=== PATIENT | female | born 1955 | race Caucasian/White ===

== ENCOUNTER 2016-03-31 17:48 | Emergency (ER) | payer MEDICARE, MEDICAID ==
[2016-03-31] MEDS ORDERED: OXYCODONE-ACETAMINOPHEN 5-325 MG TABLET PO ONE (18:50)
--- NOTE | 2016-03-31 18:53 | ER Document Report ---
ED Medical Screen (RME) - General Chief Complaint: Fall Injury Stated Complaint: FALL,RIGHT SIDE PAIN Mode of Arrival: Wheelchair Information source: Patient Notes: Patient states that she fell 3 days ago and broke a table. Patient states she has been feeling dizzy off and on at home. Patient is uncertain exactly what happened during the fall. Patient has bruising along right lateral side area. Patient denies any chest pain or shortness of breath, although complains of pain with deep inspiration. hx: Anxiety, restless leg syndrome, COPD, hypertension TRAVEL OUTSIDE OF THE [place] IN LAST 30 DAYS: No - Related Data Allergies/Adverse Reactions: citalopram hydrobromide [From Celexa] Allergy (Verified 03/12/16 13:31) dextromethorphan HBr [From NyQuil] Allergy (Verified 03/12/16 13:31) doxylamine [From NyQuil] Allergy (Verified 03/12/16 13:31) fluoxetine HCl [From Prozac] Allergy (Verified 03/12/16 13:31) pseudoephedrine HCl [From NyQuil] Allergy (Verified 03/12/16 13:31) trazodone [Trazodone] Allergy (Verified 03/12/16 13:31) antidepressants Adverse Reaction (Uncoded 03/12/16 13:31) Hallucinations Past Medical History - Social History Family history: CVA, Malignancy - Past Medical History Cardiac Medical History: Reports: Hx Hypertension Denies: Hx Coronary Artery Disease, Hx Heart Attack Pulmonary Medical History: Reports: Hx Asthma, Hx Bronchitis, Hx COPD, Hx Pneumonia Denies: Hx Tuberculosis Neurological Medical History: Reports: Hx Migraine. Denies: Hx Cerebrovascular Accident Malignancy Medical History: Reports: Hx Cervical Cancer GI Medical History: Reports: Hx Cirrhosis, Hx Gastritis Musculoskeltal Medical History: Denies Hx Arthritis, Reports Hx Muscle Weakness , Reports Hx Musculoskeletal Trauma Psychiatric Medical History: Reports: Hx Anxiety, Hx Bipolar Disorder, Hx Depression Traumatic Medical History: Reports: Hx Fractures Past Surgical History: Reports: Hx Section - x3, Hx Gynecologic Surgery - cervical dysplasia, Hx Tonsillectomy. Denies: Hx Pacemaker - Immunizations Immunizations up to date: Yes Hx Diphtheria, Pertussis, Tetanus Vaccination: Yes Physical Exam - Abdominal Tenderness: Tender - Right lateral side with overlying ecchymosis
[2016-03-31 20:10] LABS: ABSOLUTE BASOPHILS # (AUTO) 0.1 10^3/uL (0.0-0.2); ABSOLUTE LYMPHOCYTES (AUTO) 1.8 10^3/uL (0.5-4.7); ABSOLUTE MONOCYTES (AUTO) 1.1 10^3/uL (0.1-1.4); ABSOLUTE NEUT (AUTO) 4.2 10^3/uL (1.7-8.2); EOSINOPHILS % (AUTO) 0.5 % (0-6); HEMATOCRIT 46.7 % (36.0-47.0); HEMOGLOBIN 16.3 g/dL (12.0-15.5); HGB HCT DIFFERENCE 2.2; LYMPHOCYTES % (AUTO) 25.5 % (13-45); MEAN CORPUSCULAR HEMOGLOBIN 33.6 pg (27.0-33.4); MEAN CORPUSCULAR HGB CONC 34.9 g/dL (32.0-36.0); MEAN CORPUSCULAR VOLUME 96 fl (80-97); MONOCYTES % (AUTO) 15.3 % (3-13); RED BLOOD COUNT 4.85 10^6/uL (3.72-5.28); RED CELL DISTRIBUTION WIDTH 13.4 % (11.5-14.0); SEGMENTED NEUTROPHILS % (AUTO) 57.7 % (42-78); WHITE BLOOD COUNT 7.2 10^3/uL (4.0-10.5)
[2016-03-31 20:13] LABS: PROTHROMBIN TIME 12.6 SEC (11.4-15.4)
[2016-03-31 20:14] LABS: PARTIAL THROMBOPLASTIN TIME 42.3 SEC (23.5-35.8)
[2016-03-31 20:23] LABS: ALANINE AMINOTRANSFERASE 35 U/L (9-52); ALBUMIN 4.7 g/dL (3.5-5.0); ALKALINE PHOSPHATASE 108 U/L (38-126); ANION GAP 13 (5-19); ASPARTATE AMINO TRANSFERASE 24 U/L (14-36); BILIRUBIN,TOTAL 0.8 mg/dL (0.2-1.3); BLOOD UREA NITROGEN 7 mg/dL (7-20); CALCIUM 9.8 mg/dL (8.4-10.2); CARBON DIOXIDE 25 mmol/L (22-30); CHLORIDE 98 mmol/L (98-107); CREATINE KINASE 65 U/L (30-135); CREATININE RESULT 0.62 mg/dL (0.52-1.25); GLUCOSE 100 mg/dL (75-110); MAGNESIUM 1.7 mg/dL (1.6-2.3); SODIUM 135.9 mmol/L (137-145); TOTAL PROTEIN 6.9 g/dL (6.3-8.2)
[2016-03-31 20:36] LABS: TROPONIN I < 0.012 ng/mL
--- NOTE | 2016-03-31 21:14 | EKG REPORT ---
SEVERITY:- OTHERWISE NORMAL ECG - SINUS TACHYCARDIA : Confirmed by: El Werner MD 31-Mar-2016 21:14:27
[2016-03-31 21:22] LABS: APPEARANCE,URINE SLIGHTLY-CLOUDY; BILIRUBIN,URINE NEGATIVE (NEGATIVE); GLUCOSE, URINE NEGATIVE (NEGATIVE); KETONES,URINE TRACE mg/dL (NEGATIVE); LEUKOCYTE ESTERASE,URINE LARGE (NEGATIVE); NITRITE,URINE POSITIVE (NEGATIVE); PROTEIN,URINE NEGATIVE (NEGATIVE); URINE SPECIFIC GRAVITY 1.012; UROBILINOGEN,URINE NEGATIVE mg/dL (<2.0)
[2016-03-31] MEDS ORDERED: CEFTRIAXONE INJ 1000 MG VIAL IV ONE (22:50)
[2016-03-31] MEDS ORDERED: FENTANYL CITRATE INJ/PF 100 MCG/2 ML AMPUL IV ONE (22:51)
--- NOTE | 2016-04-01 | ER Document Report ---
ED General - General Chief Complaint: Fall Injury Stated Complaint: FALL,RIGHT SIDE PAIN Mode of Arrival: Wheelchair Notes: Patient is a 61 year old female presents with complaint of right-sided flank pain. Patient fell several days ago. She has bruising across her right flank. She says she has pain over her ribs. She says it hurts to cough. She's also recently treated for UTI. She is unsure what anabolic she was given. Denies any fevers. No vomiting. She has chronic back pain. She denies any complaints of leg pain and weakness or numbness. No loss of bowel control. No urinary retention. No other complaints at this time. TRAVEL OUTSIDE OF THE [place] IN LAST 30 DAYS: No - Related Data Allergies/Adverse Reactions: citalopram hydrobromide [From Celexa] Allergy (Verified 03/12/16 13:31) dextromethorphan HBr [From NyQuil] Allergy (Verified 03/12/16 13:31) doxylamine [From NyQuil] Allergy (Verified 03/12/16 13:31) fluoxetine HCl [From Prozac] Allergy (Verified 03/12/16 13:31) pseudoephedrine HCl [From NyQuil] Allergy (Verified 03/12/16 13:31) trazodone [Trazodone] Allergy (Verified 03/12/16 13:31) antidepressants Adverse Reaction (Uncoded 03/12/16 13:31) Hallucinations Past Medical History - General Information source: Patient - Social History Smoking Status: Unknown if Ever Smoked Frequency of alcohol use: None Drug Abuse: None Family History: Reviewed & Not Pertinent - Past Medical History Cardiac Medical History: Reports: Hx Hypertension Denies: Hx Coronary Artery Disease, Hx Heart Attack Pulmonary Medical History: Reports: Hx Asthma, Hx Bronchitis, Hx COPD, Hx Pneumonia Denies: Hx Tuberculosis Neurological Medical History: Reports: Hx Migraine. Denies: Hx Cerebrovascular Accident Malignancy Medical History: Reports: Hx Cervical Cancer GI Medical History: Reports: Hx Cirrhosis, Hx Gastritis Musculoskeltal Medical History: Denies Hx Arthritis, Reports Hx Muscle Weakness , Reports Hx Musculoskeletal Trauma Psychiatric Medical History: Reports: Hx Anxiety, Hx Bipolar Disorder, Hx Depression Traumatic Medical History: Reports: Hx Fractures Past Surgical History: Reports: Hx Section - x3, Hx Gynecologic Surgery - cervical dysplasia, Hx Tonsillectomy. Denies: Hx Pacemaker - Immunizations Immunizations up to date: Yes Hx Diphtheria, Pertussis, Tetanus Vaccination: Yes Review of Systems - Review of Systems Notes: My Normal Review Basic REVIEW OF SYSTEMS: CONSTITUTIONAL : Denies fever, chills, or sweats. Denies recent illness. EENT: Denies eye, ear, throat, or mouth pain or symptoms. Denies nasal or sinus congestion. CARDIOVASCULAR: Pain over right lower ribs. RESPIRATORY: Denies cough, cold, or chest congestion. Denies shortness of breath, difficulty breathing, or wheezing. GASTROINTESTINAL: Denies abdominal pain. Denies nausea, vomiting, or diarrhea. Denies constipation. Last BM: GENITOURINARY: Denies difficulty urinating, painful urination, burning, frequency, or blood in urine. MUSCULOSKELETAL: Right lower rib pain. SKIN: Denies rash or skin lesions. HEMATOLOGIC : Denies easy bruising or bleeding. LYMPHATIC: Denies swollen, enlarged glands. NEUROLOGICAL: Denies altered mental status or loss of consciousness. Denies headache. Denies weakness or paralysis or loss of use of either side. Denies problems with gait or speech. Denies sensory or motor loss. ALL OTHER SYSTEMS REVIEWED AND NEGATIVE. Physical Exam - Vital signs Vitals: Resp BP Pulse Ox 20 133/83 H 94 04/01/16 01:01 04/01/16 01:01 04/01/16 01:01 - Notes Notes: General Appearance: Well nourished, alert, cooperative, no acute distress, moderate obvious discomfort. Vitals: reviewed, See vital signs table. Head: no swelling or tenderness to the head Eyes: PERRL, EOMI, Conjuctiva clear Mouth: No decreasd moisture Neck: Supple, no neck tenderness, No thyromegaly Lungs: No wheezing, No rales, No rhonci, No accessory muscle use, good air exchange bilaterally. Heart: Normal rate, Regular rythm, No murmur, no rub Chest wall: Patient has very easily reproducible pain to palpation over right lower ribs. No obvious deformity. Patient does have a large bruise goning across the right flank. Abdomen: Normal BS, soft, No rigidity, No abdominal tenderness, No guarding, no rebound, no abdominal masses, no organomegaly Extremities: strength 5/5 in all extremities, good pulses in all extremities, no swelling or tenderness in the extremities, no edema. Skin: warm, dry, appropriate color, no rash Neuro: speech clear, oriented x 3, normal affect, responds appropriately to questions. Course - Vital Signs Vital signs: Temp Pulse Resp BP Pulse Ox 20 133/83 H 94 04/01/16 01:01 04/01/16 01:01 04/01/16 01:01 - Laboratory Result Diagrams: 03/31/16 19:43 03/31/16 19:43 Laboratory results interpreted by me: 03/31/16 03/31/16 03/31/16 19:43 19:43 19:43 Hgb 16.3 H MCH 33.6 H Monocytes % 15.3 H APTT 42.3 H Sodium 135.9 L Urine Ketones Urine Blood Urine Nitrite Ur Leukocyte Esterase 03/31/16 19:43 Hgb MCH Monocytes % APTT Sodium Urine Ketones TRACE H Urine Blood MODERATE H Urine Nitrite POSITIVE H Ur Leukocyte Esterase LARGE H - Transfer of Care Notes: 04/01/16 06:28 Patient is a bit tachycardic on presentation. I think this is related to her pain. I did obtain a CT scan of her abdomen and pelvis because she does have large flank bruise with some tachycardia. Want to make sure there is no intra- abdominal injury. CT scan is negative. Symptoms most likely are related to her rib contusion. She is very tender to palpation over her right lower rib. I will discharge him with pain medication. I will give her incentive spirometer to use. She does have UTI. I did give her a dose of Rocephin send her urine for culture due to her history of recurrent UTIs. Encouraged to return to the ER if she has fevers, vomiting, difficulty breathing, or feels unwell. Patient agrees with plan will be discharged home. Dictation of this chart was performed using voice recognition software; therefore, there may be some unintended grammatical errors. Discharge - Discharge Clinical Impression: Contusion of rib on right side Qualifiers: Encounter type: initial encounter Qualified Code(s): S20.211A - Contusion of right front wall of thorax, initial encounter UTI (urinary tract infection) Qualifiers: Urinary tract infection type: site unspecified Hematuria presence: with hematuria Qualified Code(s): N39.0 - Urinary tract infection, site not specified Condition: Good Disposition: HOME, SELF-CARE Additional Instructions: URINARY TRACT INFECTION: Your evaluation indicates that you have a urinary tract infection. This is due to germs growing in the bladder. This is a common problem. This infection usually responds quickly to antibiotics. Your antibiotic should be taken exactly as prescribed. Drink plenty of fluids -- three to four quarts a day. Occasionally, a bladder anesthetic will be prescribed to help stop the feeling of urgency until the antibiotic has a chance to clear the infection. This may cause your urine to be dark orange. Certain urine infections require a culture. If the doctor obtained a culture, the results will be back in two days. You should call to see if a change in treatment is needed. A repeat urinalysis after you finish treatment is often recommended. The physician will let you know if further testing is required. Call the doctor if you develop fever, chills, flank pain, inability to urinate, or blood in the urine. ANTIBIOTIC THERAPY: You have been given an antibiotic prescription. It's important that you take all the medication, unless instructed otherwise by your physician. Failure to complete the entire course can result in relapse of your condition. Common side effects of antibiotics include nausea, intestinal cramping, or diarrhea. Women may develop vaginal yeast infections, and babies can get yeast (thrush) in the mouth following the use of antibiotics. Contact your physician if you develop significant side effects from this medication. Allergy to this antibiotic can result in hives, wheezing, faintness, or itching. If symptoms of allergy occur, stop the medication and call the doctor. CEPHALEXIN: The antibiotic you've been prescribed is a member of the cephalosporin class. This type of antibiotic covers a wide variety of infections, including those of the skin, lungs, and urinary tract. It's useful for staph infections. This antibiotic is slightly similar to the penicillin family. In rare cases , a person who is allergic to penicillin will also be allergic to this medication. If you have had a severe allergic reaction to penicillin, and have not taken this antibiotic since that time, notify your doctor. Antibiotics which cover many germs ("broad spectrum" antibiotics) are more likely to cause diarrhea or "yeast" infections. Women prone to vaginal yeast problems may suffer an attack after taking this antibiotic. In infants, oral thrush (white spots "stuck" on the cheek) or yeast diaper rash may result. See your doctor if these problems occur. Call at once if you develop itching, hives , shortness of breath, or lightheadedness. FOLLOW-UP CARE: If you have been referred to a physician for follow-up care, call the physician s office for an appointment as you were instructed or within the next two days. If you experience worsening or a significant change in your symptoms, notify the physician immediately or return to the Emergency Department at any time for re-evaluation. Rib Contusion You have been diagnosed as having bruised ribs. It will usually take a few weeks for these injured ribs to heal. You should cough or take a deep breath at least every hour or two to prevent lung complications. You should not engage in any strenuous physical activity until released by your physician. The usual rule is "if it hurts, don' t do it." Return if you develop any of the following: (1) Fever or chills. (2) Persistent cough, coughing up blood, or shortness of breath. (3) Increasing pain. (4) Weakness, lightheadedness, or fainting. Please use the incentive spirometer to take a deep breath at least once every 30 minutes. Please take the pain medicine as prescribed. Please call your primary care physician for close follow-up appointment. Please return to the ER if you have fevers, vomiting, difficulty breathing, or feel unwell. Prescriptions: Cephalexin Monohydrate [Keflex 500 mg Capsule] 500 mg PO QID #20 capsule Oxycodone HCl/Acetaminophen [Percocet 5-325 mg Tablet] 1 tab PO Q4H PRN #25 tablet PRN Reason: Forms: Return to Work Referrals: THIEN DUCKWORTH MD [Primary Care Provider] - Follow up as needed
[2016-04-01 01:46] VITALS: BP 133/83
== END 2016-04-01 01:53 | disposition home or self-care (01) ==
LOC: ER 17:48
DX: S20.211A Contusion of right front wall of thorax, initial encounter (principal); R07.81 Pleurodynia; W19.XXXA Unspecified fall, initial encounter; N39.0 Urinary tract infection, site not specified; R31.9 Hematuria, unspecified; R00.0 Tachycardia, unspecified; M54.9 Dorsalgia, unspecified; G89.29 Other chronic pain; I10 Essential (primary) hypertension; J44.9 Chronic obstructive pulmonary disease, unspecified; J45.909 Unspecified asthma, uncomplicated; Z85.41 Personal history of malignant neoplasm of cervix uteri; Z88.8 Allergy status to other drugs, medicaments and biological substances
CPT/HCPCS: 93005; 99284; 96375; 96365; 36415; 82553; 82550; 83690; 83735; 85025; 85610; 85730; 80053; 81001; 84484; 71101; 74177; 93010; J3010; A9270; J0696

== ENCOUNTER → 2016-04-09 | Outpatient (CLI) | payer MEDICARE, MEDICAID | LOC: RAD 08:35 | PROVIDERS: ATTEND Family Medicine | DX: S20.211A Contusion of right front wall of thorax, initial encounter (principal); X58.XXXA Exposure to other specified factors, initial encounter | CPT/HCPCS: 71020 ==

== ENCOUNTER → 2016-04-24 | Outpatient (CLI) | payer MEDICARE, MEDICAID | LOC: RAD 13:27 | PROVIDERS: ATTEND Family Medicine | DX: S20.211A Contusion of right front wall of thorax, initial encounter (principal); X58.XXXA Exposure to other specified factors, initial encounter ==

== ENCOUNTER 2016-04-26 12:37 | Emergency (ER) | payer MEDICARE, MEDICAID ==
[2016-04-26] MEDS ORDERED: DIPH/PERTUSS(ACELL)/TETANUS VAC/PF 0.5 ML SYR (>=10YO) IM ONE (14:23)
[2016-04-26] MEDS ORDERED: LIDOCAINE 1% INJ-PF (10 MG/ML) 30 ML SDV INJ ONE (14:23)
--- NOTE | 2016-04-26 14:26 | ER Document Report ---
ED Fall - General Chief Complaint: Fall Injury Stated Complaint: CAMPOS LACERATION Mode of Arrival: Medic Information source: Patient Notes: Patient states that she was standing on a table yesterday attempting to change the curtains in her house. Patient states that she lost her balance and fell from the table. Patient with a laceration to her left leg. Patient also reports hitting her head but is not certain if she may have had a loss of consciousness. Patient additionally reports that she was recently treated for UTI with Keflex but does not feel that her UTI symptoms have completely resolved. TRAVEL OUTSIDE OF THE [place] IN LAST 30 DAYS: No - HPI Occurred: Yesterday Where: Home Context: Lost balance Associated symptoms: None Location of injury/pain: Head, Upper extremity, Lower extremity Quality of pain: Achy Pain Level: 3 - Related data Allergies/Adverse Reactions: citalopram hydrobromide [From Celexa] Allergy (Verified 03/12/16 13:31) dextromethorphan HBr [From NyQuil] Allergy (Verified 03/12/16 13:31) doxylamine [From NyQuil] Allergy (Verified 03/12/16 13:31) fluoxetine HCl [From Prozac] Allergy (Verified 03/12/16 13:31) pseudoephedrine HCl [From NyQuil] Allergy (Verified 03/12/16 13:31) trazodone [Trazodone] Allergy (Verified 03/12/16 13:31) antidepressants Adverse Reaction (Uncoded 03/12/16 13:31) Hallucinations Past Medical History - General Information source: Patient - Social History Smoking Status: Current Every Day Smoker Frequency of alcohol use: Occasional Drug Abuse: None Occupation: none Lives with: Friend Family History: Reviewed & Not Pertinent - Past Medical History Cardiac Medical History: Reports: Hx Hypertension Denies: Hx Coronary Artery Disease, Hx Heart Attack Pulmonary Medical History: Reports: Hx Asthma, Hx Bronchitis, Hx COPD, Hx Pneumonia Denies: Hx Tuberculosis Neurological Medical History: Reports: Hx Migraine. Denies: Hx Cerebrovascular Accident Malignancy Medical History: Reports: Hx Cervical Cancer GI Medical History: Reports: Hx Cirrhosis, Hx Gastritis Musculoskeltal Medical History: Denies Hx Arthritis, Reports Hx Muscle Weakness , Reports Hx Musculoskeletal Trauma Psychiatric Medical History: Reports: Hx Anxiety, Hx Bipolar Disorder, Hx Depression Traumatic Medical History: Reports: Hx Fractures Past Surgical History: Reports: Hx Section - x3, Hx Gynecologic Surgery - cervical dysplasia, Hx Tonsillectomy. Denies: Hx Pacemaker - Immunizations Immunizations up to date: Yes Hx Diphtheria, Pertussis, Tetanus Vaccination: Yes Review of Systems - Review of Systems Constitutional: Recent illness - Recent UTI. denies: Fever EENT: No symptoms reported. denies: Blurred vision Cardiovascular: No symptoms reported. denies: Chest pain Respiratory: No symptoms reported. denies: Cough, Short of breath Gastrointestinal: No symptoms reported. denies: Abdominal pain, Nausea, Vomiting Genitourinary: No symptoms reported Female Genitourinary: No symptoms reported Musculoskeletal: Other - Left lower leg pain. denies: Back pain Skin: Other - Laceration to left lower extremity Hematologic/Lymphatic: No symptoms reported Neurological/Psychological: No symptoms reported. denies: Confusion, Headaches Physical Exam - Vital signs Vitals: Temp Pulse Resp BP Pulse Ox 97.6 F 104 H 20 134/70 H 94 04/26/16 12:54 04/26/16 12:54 04/26/16 12:54 04/26/16 12:54 04/26/16 12:54 - General General appearance: Appears well, Alert In distress: None - HEENT Head: Ecchymosis - Large swollen ecchymotic area to right side of forehead. No : Abrasions, [place]'s eyes Eyes: Normal Conjunctiva: Normal Extraocular movements intact: Yes Eyelashes: Normal Pupils: PERRL Ears: Normal External canal: Normal Tympanic membrane: Normal. No: Hemotympanum Nasal: Normal Mouth/Lips: Normal Pharynx: Normal Neck: Normal, Supple. No: Lymphadenopathy Notes: No midline tenderness, step-off, deformity - Respiratory Respiratory status: No respiratory distress Chest status: Nontender Breath sounds: Normal Chest palpation: Normal - Cardiovascular Rhythm: Regular Heart sounds: S1 appreciated, S2 appreciated - Abdominal Inspection: Caput medussa Distension: No distension Bowel sounds: Normal Tenderness: Nontender Organomegaly: No organomegaly - Back Back: Normal, Nontender. No: CVA tenderness, Vertebra tenderness - Extremities General upper extremity: Tender, Normal strength - Superficial abrasions to right upper arm General lower extremity: Tender - Tenderness to anterior aspect of left lower leg involving laceration, Normal strength Shoulder: Normal, Nontender Arm: Tender - Right upper arm, Abrasion - Superficial, right upper arm Elbow: Normal, Nontender Forearm: Normal, Nontender Wrist: Normal, Nontender Hand: Normal, Nontender Hip: Normal, Nontender Thigh: Normal, Nontender Knee: Normal, Nontender Calf: Normal, Nontender Ankle: Normal, Nontender Foot: Normal, Nontender - Neurological Neuro grossly intact: Yes [place] Coma Scale Eye Opening: Spontaneous Jose Coma Scale Verbal: Oriented [place] Coma Scale Motor: Obeys Commands Jose Coma Scale Total: 15 - Skin Skin Temperature: Warm Skin Moisture: Dry Skin Color: Normal Skin irregularity: Laceration - Anterior aspect of lower third of left lower extremity Course - Re-evaluation Re-evalutation: 04/26/16 14:[address] Terry regarding patient presentation, exam findings. Advises obtaining coagulation panel, CT head as well as CT cervical spine, in addition to planned evaluation. Recommends suturing laceration with edges loosely approximated. 04/26/16 18:[address] Terry regarding antibiotic choice given patient's laceration as well as a UTI that was previously treated with Keflex. Recommends giving Bactrim - Vital Signs Vital signs: Temp Pulse Resp BP Pulse Ox 97.6 F 66 16 122/67 98 04/26/16 12:54 04/26/16 18:16 04/26/16 18:16 04/26/16 18:16 04/26/16 18:16 - Laboratory Result Diagrams: 04/26/16 15:25 04/26/16 15:25 Laboratory results interpreted by me: 04/26/16 04/26/16 04/26/16 15:25 15:25 15:25 Monocytes % 17.6 H BUN 6 L Glucose 137 H Ammonia < 8.7 L Urine Blood Ur Leukocyte Esterase 04/26/16 15:25 Monocytes % BUN Glucose Ammonia Urine Blood SMALL H Ur Leukocyte Esterase LARGE H Labs- Entire Visit 04/26/16 04/26/16 04/26/16 15:25 15:25 15:25 WBC 5.0 RBC 4.39 Hgb 14.5 Hct 42.8 MCV 97 MCH 33.0 MCHC 33.9 RDW 13.6 Plt Count 154 Seg Neutrophils % 47.5 Lymphocytes % 33.0 Monocytes % 17.6 H Eosinophils % 1.1 Basophils % 0.8 Absolute Neutrophils 2.4 Absolute Lymphocytes 1.7 Absolute Monocytes 0.9 Absolute Eosinophils 0.1 Absolute Basophils 0.0 PT 12.0 INR 0.86 APTT 34.2 Sodium 142.2 Potassium 4.6 Chloride 103 Carbon Dioxide 26 Anion Gap 13 BUN 6 L Creatinine 0.71 Est GFR ( Amer) > 60 Est GFR (Non-Af Amer) > 60 Glucose 137 H Calcium 9.7 Total Bilirubin 0.5 Direct Bilirubin 0.0 AST 23 ALT 22 Alkaline Phosphatase 79 Ammonia Total Protein 7.0 Albumin 3.9 Urine Color Urine Appearance Urine pH Ur Specific [place] Urine Protein Urine Glucose (UA) Urine Ketones Urine Blood Urine Nitrite Urine Bilirubin Urine Urobilinogen Ur Leukocyte Esterase Urine WBC (Auto) Urine RBC (Auto) Urine Bacteria (Auto) Squamous Epi Cells Auto Urine Mucus (Auto) Urine Ascorbic Acid 04/26/16 04/26/16 15:25 15:25 WBC RBC Hgb Hct MCV MCH MCHC RDW Plt Count Seg Neutrophils % Lymphocytes % Monocytes % Eosinophils % Basophils % Absolute Neutrophils Absolute Lymphocytes Absolute Monocytes Absolute Eosinophils Absolute Basophils PT INR APTT Sodium Potassium Chloride Carbon Dioxide Anion Gap BUN Creatinine Est GFR ( Amer) Est GFR (Non-Af Amer) Glucose Calcium Total Bilirubin Direct Bilirubin AST ALT Alkaline Phosphatase Ammonia < 8.7 L Total Protein Albumin Urine Color YELLOW Urine Appearance SLIGHTLY-CLOUDY Urine pH 5.0 Ur Specific [place] 1.005 Urine Protein NEGATIVE Urine Glucose (UA) NEGATIVE Urine Ketones NEGATIVE Urine Blood SMALL H Urine Nitrite NEGATIVE Urine Bilirubin NEGATIVE Urine Urobilinogen NEGATIVE Ur Leukocyte Esterase LARGE H Urine WBC (Auto) 59 Urine RBC (Auto) 10 Urine Bacteria (Auto) TRACE Squamous Epi Cells Auto <1 Urine Mucus (Auto) RARE Urine Ascorbic Acid NEGATIVE 04/26/16 18:43 - Diagnostic Test Radiology reviewed: Reports reviewed Procedures - Laceration/Wound Repair Left Leg Wound length (cm): 5 Wound's Depth, Shape: Irregular Laceration pre-procedure: Other - irrisept Anesthetic type: 1% Lidocaine Wound explored: No foreign body removed Irrigated w/ Saline (mLs): 1,000 Wound Debrided: Moderate Wound Repaired With: Sutures Suture Size/Type: 4:0, Prolene Number of Sutures: 7 Layer Closure?: No Post-procedure wound care: Sterile dressing applied Post-procedure NV exam normal: Yes Complications: No Discharge - Discharge Clinical Impression: Fall Qualifiers: Encounter type: initial encounter Qualified Code(s): W19.XXXA - Unspecified fall, initial encounter UTI (urinary tract infection) Qualifiers: Urinary tract infection type: site unspecified Hematuria presence: with hematuria Qualified Code(s): N39.0 - Urinary tract infection, site not specified Leg laceration Qualifiers: Encounter type: initial encounter Laterality: left Qualified Code(s): S81.812A - Laceration without foreign body, left lower leg, initial encounter Arm abrasion Qualifiers: Encounter type: initial encounter Laterality: right Qualified Code(s): S40.811A - Abrasion of right upper arm, initial encounter Head injury Qualifiers: Encounter type: initial encounter Qualified Code(s): S09.90XA - Unspecified injury of head, initial encounter Condition: Stable Disposition: HOME, SELF-CARE Instructions: Urinary Tract Infection ([facility]), Trimethoprim-Sulfa ([facility]) Additional Instructions: Return immediately for any new or worsening symptoms Followup with your primary care provider, call tomorrow to make a followup appointment Suture removal in 12 days HEAD INJURY PRECAUTIONS: At this point, there is no evidence that your head injury is serious. Observation is necessary, however. Take only clear liquids for the first few hours, unless told otherwise by the doctor. If no pain medication was prescribed, you may take acetaminophen according to the directions on the bottle. Do not take any medication that may alter your level of alertness (unless you've discussed it with the doctor first) . Limit activity for the first 24 hours. Bed rest is best. During the first 24 hours, check to see approximately every two to three hours that the patient is easily arousable, responds normally, and can perform common tasks such as walking without difficulty. Contact your doctor or go to the hospital if any of the following things occur: Persistent vomiting, difficulty in arousing the patient, worsening or continued headache, or failure to improve as expected. Head injuries can cause symptoms that persist for a few days or even a few weeks. NECK INJURY (CERVICAL STRAIN): You have a neck strain. This is an injury to the muscles and ligaments in the neck. There is no evidence of a fracture of the neck bones. Also, no injury to the spinal cord or nerve roots was detected. Usually, stiffness and pain INCREASE for the first 24-48 hours after the injury. The pain will gradually resolve and the neck will become more mobile. Most patients are back at work or school within a few days. Typically, complete healing takes about two or three weeks. The usual initial treatment is rest and cold packs. A neck collar may be placed to keep the muscles of the neck at rest. Antiinflammatory and muscle relaxing medication are often used to reduce the spasm and irritation. You should call the doctor, or go to the hospital, if you develop numbness or weakness in any extremity, problems with your bladder or bowel, or pain radiating down the arms. CONTUSION: Your injury has resulted in a contusion -- a crushing of the deep tissues. No injury to important structures was detected during the physician's exam. Contusions vary in the amount of pain they cause, and in the length of time required for healing. Typically, the area will become bruised, and will remain painful to touch for two or three weeks. However, most patients are back to working and playing within a few days. After the initial period of rest and cold-packs, your symptoms (together with the doctor's recommendations) will determine how rapidly you can get back to full activity. Usually this means "do what feels okay, but don't do things that hurt." If re-examination was recommended, it's important to follow up as instructed. Call the doctor or return any time if pain increases, if swelling becomes severe, if you develop numbness or weakness in an injured extremity, or if any other alarming symptoms occur. ABRASIONS: An abrasion is a scraping injury of the skin. Some scarring may result. The seriousness of an abrasion is not always obvious at first. Hidden tissue damage may be present and infection may occur despite proper care. Complete healing may take from ten days to as long as a month. The healing time depends on the depth of the abrasion, and on the amount of crushing of underlying tissues from the injury. Keep the wound and dressing clean. Do not shower or bathe the area until okayed by the doctor. If the dressing gets wet, remove it and blot the wound dry, then reapply a clean dressing. Dressings should be changed every day. Sunscreen should be used for six months after the skin is healed. If any signs of infection occur (swelling, redness, increasing tenderness, red streaks, profuse purulent drainage from the abrasion, tender lumps in the armpit or groin above the abrasion, or fever), see the doctor immediately. USE OF TYLENOL (ACETAMINOPHEN): Acetaminophen may be taken for pain relief or fever control. It's much safer than aspirin, offering a wider range of "safe" dosages. It is safe during . Some brand names are Tylenol, Panadol, Datril, Anacin 3, Tempra, and Liquiprin. Acetaminophen can be repeated every four hours. The following are maximum recommended dosages: WEIGHT Dose Drops Elixir Chewable( 80mg) (LBS.) drprs=droppers tsp=teaspoon >89 pounds or adults 650 mg to 900 mg Acetaminophen can be repeated every four hours. Maximum dose not to exceed 4000 mg a day. These maximum recommended dosages are slightly higher than the dosages written on the product container, but these dosages are very safe and below the toxic dosage for acetaminophen. TETANUS IMMUNIZATION GIVEN: You have been given an immunization against tetanus. Please record this in your records. In general, a booster is needed only once every 10 years. The tetanus shot protects against tetanus or "lockjaw," which is a complication of certain wound infections (the tetanus shot cannot protect against the actual infection). The immunization site may become warm and red due to local reaction. If this occurs, apply warm compresses and take aspirin or ibuprofen to reduce inflammation and discomfort. Return for evaluation if the reaction becomes severe. ICE PACKS: Apply ice packs frequently against the painful area. Many different schedules are recommended, such as "20 minutes on, 20 minutes off" or "one hour ice, two hours rest." If you need to work, you may need to go longer between ice treatments. You should plan to have the area ice packed AT LEAST one fourth of the time. The ice should be applied over the wrap, tape, or splint, or over a layer of cloth -- not directly against the skin. Some ice bags have a built-in cloth and can be put directly on the skin. WARM PACKS: After approximately two days, apply gentle heat (such as a heating pad or hot water bottle) for about 20 to 30 minutes about every two hours -- at least four times daily. Warmth and elevation will help you make a more rapid recovery , and will ease the pain considerably. Do not use HOT heat, and never apply heat for longer than 30 minutes. The continuous heat can invisibly damage skin and muscles -- even when no burn is seen on the surface. Damaged muscles can make you MORE sore. ORAL NARCOTIC MEDICATION: You have been given a prescription for pain control. This medication is a narcotic. It's best taken with food, as nausea can result if taken on an empty stomach. Don't operate machinery or drive within six hours of taking this medication. Do not combine this medicine with alcohol, or with any medication which can cause sedation (such as cold tablets or sleeping pills) unless you get permission from the physician. Narcotics tend to cause constipation. If possible, drink plenty of fluids and eat a diet high in fiber and fruits. FOLLOW-UP CARE: If you have been referred to a physician for follow-up care, call the physician s office for an appointment as you were instructed or within the next two days. If you experience worsening or a significant change in your symptoms, notify the physician immediately or return to the Emergency Department at any time for re-evaluation. Prescriptions: Sulfamethoxazole/Trimethoprim [Bactrim Ds Tablet] 1 each PO BID #20 tablet Referrals: THIEN DUCKWORTH MD [Primary Care Provider] - 04/29/16
[2016-04-26 15:49] LABS: ABSOLUTE EOSINOPHILS # (AUTO) 0.1 10^3/uL (0.0-0.6); ABSOLUTE LYMPHOCYTES (AUTO) 1.7 10^3/uL (0.5-4.7); ABSOLUTE MONOCYTES (AUTO) 0.9 10^3/uL (0.1-1.4); ABSOLUTE NEUT (AUTO) 2.4 10^3/uL (1.7-8.2); BASOPHILS % (AUTO) 0.8 % (0-2); EOSINOPHILS % (AUTO) 1.1 % (0-6); HEMATOCRIT 42.8 % (36.0-47.0); HEMOGLOBIN 14.5 g/dL (12.0-15.5); HGB HCT DIFFERENCE 0.7; MEAN CORPUSCULAR HGB CONC 33.9 g/dL (32.0-36.0); MEAN CORPUSCULAR VOLUME 97 fl (80-97); MONOCYTES % (AUTO) 17.6 % (3-13); RED BLOOD COUNT 4.39 10^6/uL (3.72-5.28); RED CELL DISTRIBUTION WIDTH 13.6 % (11.5-14.0); SEGMENTED NEUTROPHILS % (AUTO) 47.5 % (42-78)
[2016-04-26 15:51] LABS: APPEARANCE,URINE SLIGHTLY-CLOUDY; BILIRUBIN,URINE NEGATIVE (NEGATIVE); GLUCOSE, URINE NEGATIVE (NEGATIVE); KETONES,URINE NEGATIVE (NEGATIVE); LEUKOCYTE ESTERASE,URINE LARGE (NEGATIVE); NITRITE,URINE NEGATIVE (NEGATIVE); PROTEIN,URINE NEGATIVE (NEGATIVE); URINE SPECIFIC GRAVITY 1.005; UROBILINOGEN,URINE NEGATIVE mg/dL (<2.0)
[2016-04-26 15:58] LABS: PARTIAL THROMBOPLASTIN TIME 34.2 SEC (23.5-35.8)
[2016-04-26 16:36] LABS: ALANINE AMINOTRANSFERASE 22 U/L (9-52); ALBUMIN 3.9 g/dL (3.5-5.0); ALKALINE PHOSPHATASE 79 U/L (38-126); ANION GAP 13 (5-19); ASPARTATE AMINO TRANSFERASE 23 U/L (14-36); BILIRUBIN,TOTAL 0.5 mg/dL (0.2-1.3); BLOOD UREA NITROGEN 6 mg/dL (7-20); CALCIUM 9.7 mg/dL (8.4-10.2); CARBON DIOXIDE 26 mmol/L (22-30); CHLORIDE 103 mmol/L (98-107); CREATININE RESULT 0.71 mg/dL (0.52-1.25); GLUCOSE 137 mg/dL (75-110); POTASSIUM 4.6 mmol/L (3.6-5.0); SODIUM 142.2 mmol/L (137-145)
[2016-04-26] MEDS ORDERED: CEFTRIAXONE RTU 1 GM/D5W 50 ML IV ONE (17:05)
[2016-04-26] MEDS ORDERED: HYDROCODONE/ACETAMINOPHEN 5-325 MG 6 TAB/DSPK PO PRN (18:22)
[2016-04-26] MEDS ORDERED: SULFAMETHOXAZOLE/TRIMETHOPRIM 800-160 MG TABLET PO ONE (18:22)
[2016-04-26 18:23] VITALS: BP 122/67
== END 2016-04-26 18:40 | disposition home or self-care (01) ==
LOC: ER 12:37
PROC: 0HQLXZZ Repair Left Lower Leg Skin, External Approach (ICD-10-PCS; principal; 2016-04-26)
DX: S81.812A Laceration without foreign body, left lower leg, initial encounter (principal); S00.83XA Contusion of other part of head, initial encounter; S40.811A Abrasion of right upper arm, initial encounter; W08.XXXA Fall from other furniture, initial encounter; Y93.E9 Activity, other interior property and clothing maintenance; Y92.009 Unspecified place in unspecified non-institutional (private) residence as the place of occurrence of the external cause; N39.0 Urinary tract infection, site not specified; I10 Essential (primary) hypertension; J44.9 Chronic obstructive pulmonary disease, unspecified; J45.909 Unspecified asthma, uncomplicated; Z85.41 Personal history of malignant neoplasm of cervix uteri; Z88.8 Allergy status to other drugs, medicaments and biological substances
CPT/HCPCS: 99284; 90471; 96365; 36415; 87086; 82140; 85025; 85610; 85730; 80053; 81001; 73590; 70450; 72125; 90715; 12002; J3490; A9270 ×2; J0696

== ENCOUNTER 2016-04-27 14:21 | Inpatient (IN) | payer MEDICARE, MEDICAID ==
--- NOTE | 2016-04-27 14:31 | ER Document Report ---
Addendum entered and electronically signed by DEVAN BRASWELL NP 04/27/16 14:47 : Course - Re-evaluation Re-evalutation: 04/27/16 14:46 pt took percoet due the pain, drank a beer at 8 am, but did not take her xanax. drank a beer last night, but denies that she is alcoholic anymore. She states that she is safe at home and the fall was not due to etoh or dizziness. - Vital Signs Vital signs: Temp Pulse Resp BP Pulse Ox 97.9 F 106 H 20 121/87 H 100 04/27/16 14:39 04/27/16 14:39 04/27/16 14:39 04/27/16 14:39 04/27/16 14:39 Original Note: ED Medical Screen (RME) - General Stated Complaint: FALL;SHOULDER PAIN Time seen by provider: 14:28 Mode of Arrival: Medic Information source: Patient Notes: 61-year-old female met EMS at the [facility] in front of her home complaining of left shoulder pain because of a fall during the middle the night when getting up off the commode. She was here in the emergency department yesterday for stitches in her anterior tibia due to a fall. no c/o chest pain or shortness of breath. No dizziness or headache. No loss of consciousness. I have greeted and performed a rapid initial assessment of this patient. A comprehensive ED assessment, evaluation of the patient, analysis of test results , and completion of the medical decision making process will be contacted by additional ED providers. TRAVEL OUTSIDE OF THE [place] IN LAST 30 DAYS: No - Related Data Allergies/Adverse Reactions: citalopram hydrobromide [From Celexa] Allergy (Verified 04/27/16 14:30) dextromethorphan HBr [From NyQuil] Allergy (Verified 04/27/16 14:30) doxylamine [From NyQuil] Allergy (Verified 04/27/16 14:30) fluoxetine HCl [From Prozac] Allergy (Verified 04/27/16 14:30) pseudoephedrine HCl [From NyQuil] Allergy (Verified 04/27/16 14:30) trazodone [Trazodone] Allergy (Verified 04/27/16 14:30) antidepressants Adverse Reaction (Uncoded 04/27/16 14:30) Hallucinations Past Medical History - Social History Family history: CVA, Malignancy - Past Medical History Cardiac Medical History: Reports: Hx Hypertension Denies: Hx Coronary Artery Disease, Hx Heart Attack Pulmonary Medical History: Reports: Hx Asthma, Hx Bronchitis, Hx COPD, Hx Pneumonia Denies: Hx Tuberculosis Neurological Medical History: Reports: Hx Migraine. Denies: Hx Cerebrovascular Accident Malignancy Medical History: Reports: Hx Cervical Cancer GI Medical History: Reports: Hx Cirrhosis, Hx Gastritis Musculoskeltal Medical History: Denies Hx Arthritis, Reports Hx Muscle Weakness , Reports Hx Musculoskeletal Trauma Psychiatric Medical History: Reports: Hx Anxiety, Hx Bipolar Disorder, Hx Depression Traumatic Medical History: Reports: Hx Fractures Past Surgical History: Reports: Hx Section - x3, Hx Gynecologic Surgery - cervical dysplasia, Hx Tonsillectomy. Denies: Hx Pacemaker - Immunizations Immunizations up to date: Yes Hx Diphtheria, Pertussis, Tetanus Vaccination: Yes
[2016-04-27 15:37] LABS: APPEARANCE,URINE SLIGHTLY-CLOUDY; BILIRUBIN,URINE NEGATIVE (NEGATIVE); GLUCOSE, URINE NEGATIVE (NEGATIVE); KETONES,URINE NEGATIVE (NEGATIVE); LEUKOCYTE ESTERASE,URINE LARGE (NEGATIVE); NITRITE,URINE NEGATIVE (NEGATIVE); PROTEIN,URINE NEGATIVE (NEGATIVE); URINE SPECIFIC GRAVITY 1.004; UROBILINOGEN,URINE NEGATIVE mg/dL (<2.0)
[2016-04-27 15:39] LABS: URINE BARBITURATES SCREEN NEGATIVE; URINE METHADONE SCREEN NEGATIVE; URINE OPIATES LOW UNCONFIRMED POSITIVE; URINE PHENCYCLIDINE SCREEN NEGATIVE
--- NOTE | 2016-04-27 16:20 | ER Document Report ---
ED Extremity Problem, Upper - General Mode of Arrival: Medic Information source: Patient TRAVEL OUTSIDE OF THE [place] IN LAST 30 DAYS: No - HPI Patient complains to provider of: Pain, Left, Shoulder Associated symptoms: Other - See above <MARIO ALBERTO KELLY - Last Filed: 04/27/16 16:54> <DELMASULLY - Last Filed: 04/27/16 17:32> - General Chief Complaint: Shoulder Pain Stated Complaint: FALL;SHOULDER PAIN Notes: Patient is a 61 year old female, with a past medical history including depression and bipolar disorder, who presents to the emergency department complaining of left shoulder pain secondary to a fall last night. Patient reports she was using the restroom last night and when she was standing up she fell into the tub and hurt her left shoulder, patient then got up and tried to go back to sleep, patient reports this morning she started having pain in both shoulders. Patient states he was seen at this facility for fall injuries to her head and left collado yesterday for a fall occurring 2 days ago. Patient reports she normally uses a walker at home. Patient was given 6 5mg Percocet for her pain and last took a dose this morning. Patient states she has been on Percocet before. Patient reports that she recently moved to her home 3 days ago after her sisters and has been drinking, her last drink was this morning. Patient denies any self harm ideation. PCP: Dr. Thien Duckworth Psychiatrist: Dr. Smith at [facility] (MARIO ALBERTO KELLY) - Related Data Allergies/Adverse Reactions: citalopram hydrobromide [From Celexa] Allergy (Verified 04/27/16 14:30) dextromethorphan HBr [From NyQuil] Allergy (Verified 04/27/16 14:30) doxylamine [From NyQuil] Allergy (Verified 04/27/16 14:30) fluoxetine HCl [From Prozac] Allergy (Verified 04/27/16 14:30) pseudoephedrine HCl [From NyQuil] Allergy (Verified 04/27/16 14:30) trazodone [Trazodone] Allergy (Verified 04/27/16 14:30) antidepressants Adverse Reaction (Uncoded 04/27/16 14:30) Hallucinations Past Medical History - General Information source: Patient - Social History Smoking Status: Unknown if Ever Smoked Frequency of alcohol use: Heavy Lives with: Friend - roommate Family History: Reviewed & Not Pertinent Patient has suicidal ideation: No Patient has homicidal ideation: No - Past Medical History Cardiac Medical History: Reports: Hx Hypertension Pulmonary Medical History: Reports: Hx Asthma, Hx Bronchitis, Hx COPD, Hx Pneumonia Neurological Medical History: Reports: Hx Migraine Malignancy Medical History: Reports: Hx Cervical Cancer GI Medical History: Reports: Hx Cirrhosis, Hx Gastritis Musculoskeltal Medical History: Reports Hx Muscle Weakness, Reports Hx Musculoskeletal Trauma Psychiatric Medical History: Reports: Hx Anxiety, Hx Bipolar Disorder, Hx Depression Traumatic Medical History: Reports: Hx Fractures Past Surgical History: Reports: Hx Section - x3, Hx Gynecologic Surgery - cervical dysplasia, Hx Tonsillectomy - Immunizations Immunizations up to date: Yes Hx Diphtheria, Pertussis, Tetanus Vaccination: Yes <MARIO ALBERTO KELLY - Last Filed: 04/27/16 16:54> Review of Systems - Review of Systems Constitutional: No symptoms reported EENT: No symptoms reported Cardiovascular: No symptoms reported Respiratory: No symptoms reported Gastrointestinal: No symptoms reported Genitourinary: No symptoms reported Female Genitourinary: No symptoms reported Musculoskeletal: See HPI, Joint pain - Left shoulder Skin: No symptoms reported Hematologic/Lymphatic: No symptoms reported Neurological/Psychological: No symptoms reported -: Yes All other systems reviewed and negative <MARIO ALBERTO KELLY - Last Filed: 04/27/16 16:54> Physical Exam - Vital signs Interpretation: Normal - General General appearance: Appears well, Alert - HEENT Head: Abrasions - to right forehead, Ecchymosis - under right eye - Respiratory Respiratory status: No respiratory distress Chest status: Nontender Breath sounds: Normal Chest palpation: Normal - Cardiovascular Rhythm: Regular Heart sounds: Normal auscultation Murmur: No - Back Back: Normal, Nontender - Extremities Shoulder: Other - Bruising to anterior left shoulder, no crepitus. Decreased range of motion due to pain Calf: Other - Wound dressing over left collado, no swelling - Neurological Neuro grossly intact: Yes Cognition: Normal Orientation: AAOx4 [place] Coma Scale Eye Opening: Spontaneous [place] Coma Scale Verbal: Oriented [place] Coma Scale Motor: Obeys Commands Jose Coma Scale Total: 15 Speech: Normal Cranial nerves: Normal Cerebellar coordination: Gait ataxia - mild Motor strength normal: LUE, RUE, LLE, RLE Additional motor exam normals: Equal waterproofer Sensory: Normal - Normal distal sensation - Psychological Associated symptoms: Normal affect, Normal mood - Skin Skin Temperature: Warm Skin Moisture: Dry Skin Color: Normal <MARIO ALBERTO KELLY - Last Filed: 04/27/16 16:54> Course <MARIO ALBERTO KELLY - Last Filed: 04/27/16 16:54> - Laboratory Result Diagrams: 04/27/16 14:59 04/27/16 14:59 <SULLY NGUYỄN - Last Filed: 04/27/16 17:32> - Re-evaluation Re-evalutation: 04/27/16 17:31 Patient has had multiple falls recently. She was here just yesterday and had sutures for laceration on the left leg. Today she has fallen and spent quite some time in the bathtub and she is able to get out. She went back to bed and then apparently was drinking this morning. She presents complaining of left shoulder pain. On imaging we see that she has a proximal humerus as well as a distal clavicle fracture. The patient is unsteady on her feet and ataxic gait and is not safe to be discharged with these new fractures. Plan to admit the patient with orthopedics consult. I have spoken to the hospitalist who agrees to the admission. I have ordered preoperative labs and EKG. Patient will likely need to be on a CIWA protocol as I do believe she is an alcoholic. ( SULLY NGUYỄN) - Vital Signs Vital signs: Temp Pulse Resp BP Pulse Ox 97.9 F 106 H 20 121/87 H 100 04/27/16 14:39 04/27/16 14:39 04/27/16 14:39 04/27/16 14:39 04/27/16 14:39 (MARIO ALBERTO KELLY) (SULLY NGUYỄN) - Laboratory Laboratory results interpreted by me: 04/27/16 14:59 Urine Blood SMALL H Ur Leukocyte Esterase LARGE H (MARIO ALBERTO KELLY) (SULLY NGUYỄN) Discharge <MARIO ALBERTO KELLY - Last Filed: 04/27/16 16:54> - Discharge Admitting Provider: Hospitalist <SULLY NGUYỄN - Last Filed: 04/27/16 17:32> - Discharge Clinical Impression: Ataxia, Polysubstance abuse Fall Qualifiers: Encounter type: initial encounter Qualified Code(s): W19.XXXA - Unspecified fall, initial encounter Closed fracture of left proximal humerus Qualifiers: Encounter type: initial encounter Fracture morphology: other fracture Fracture alignment: displaced Qualified Code(s): S42.292A - Other displaced fracture of upper end of left humerus, initial encounter for closed fracture Closed fracture of distal clavicle Qualifiers: Encounter type: initial encounter Fracture alignment: displaced Laterality: left Qualified Code(s): S42.032A - Displaced fracture of lateral end of left clavicle, initial encounter for closed fracture Leg laceration Qualifiers: Encounter type: subsequent encounter Laterality: left Qualified Code(s): S81.812D - Laceration without foreign body, left lower leg, subsequent encounter Head injury Qualifiers: Encounter type: subsequent encounter Qualified Code(s): S09.90XD - Unspecified injury of head, subsequent encounter Disposition: ADMITTED INPATIENT Referrals: THIEN DUCKWORTH MD [Primary Care Provider] - Follow up as needed Scribe Attestation: 04/27/16 17:28 I personally performed the services described in the documentation, reviewed and edited the documentation which was dictated to the scribe in my presence, and it accurately records my words and actions. (SULLY NGUYỄN) Scribe Documentation - Scribe Written by Jessica:: jessica Leonard, 04/27/16, 2117 acting as scribe for :: Romero <MARIO ALBERTO KELLY - Last Filed: 04/27/16 16:54>
[2016-04-27 17:46] LABS: ABSOLUTE LYMPHOCYTES (AUTO) 1.1 10^3/uL (0.5-4.7); ABSOLUTE NEUT (AUTO) 5.9 10^3/uL (1.7-8.2); BASOPHILS % (AUTO) 0.6 % (0-2); EOSINOPHILS % (AUTO) 0.2 % (0-6); HEMOGLOBIN 15.1 g/dL (12.0-15.5); HGB HCT DIFFERENCE -0.7; LYMPHOCYTES % (AUTO) 13.2 % (13-45); MEAN CORPUSCULAR HEMOGLOBIN 32.4 pg (27.0-33.4); MEAN CORPUSCULAR HGB CONC 32.9 g/dL (32.0-36.0); MEAN CORPUSCULAR VOLUME 98 fl (80-97); MONOCYTES % (AUTO) 12.8 % (3-13); RED BLOOD COUNT 4.67 10^6/uL (3.72-5.28); RED CELL DISTRIBUTION WIDTH 13.8 % (11.5-14.0); SEGMENTED NEUTROPHILS % (AUTO) 73.2 % (42-78); WHITE BLOOD COUNT 8.1 10^3/uL (4.0-10.5)
[2016-04-27 17:48] LABS: PROTHROMBIN TIME 12.4 SEC (11.4-15.4)
[2016-04-27 17:49] LABS: PARTIAL THROMBOPLASTIN TIME 41.4 SEC (23.5-35.8)
[2016-04-27 17:56] LABS: ALANINE AMINOTRANSFERASE 22 U/L (9-52); ALBUMIN 4.2 g/dL (3.5-5.0); ALKALINE PHOSPHATASE 93 U/L (38-126); ANION GAP 10 (5-19); ASPARTATE AMINO TRANSFERASE 20 U/L (14-36); BILIRUBIN,TOTAL 0.5 mg/dL (0.2-1.3); BLOOD UREA NITROGEN 5 mg/dL (7-20); CALCIUM 9.4 mg/dL (8.4-10.2); CARBON DIOXIDE 25 mmol/L (22-30); CHLORIDE 98 mmol/L (98-107); CREATININE RESULT 0.65 mg/dL (0.52-1.25); GLUCOSE 114 mg/dL (75-110); POTASSIUM 4.4 mmol/L (3.6-5.0)
[2016-04-27] MEDS ORDERED: IPRATROPIUM/ALBUTEROL 0.5-2.5 MG/3 ML AMPUL NEB PRN (17:59)
[2016-04-27] MEDS ORDERED: ALPRAZOLAM 0.25 MG TABLET PO PRN (18:07)
[2016-04-27] MEDS ORDERED: DEXTROSE 5%-1/2 NORMAL SALINE 1,000 ML IV PRN (18:13)
[2016-04-27 19:48] LABS: CREATINE KINASE MB 0.81 ng/mL (<4.55)
[2016-04-27 19:50] LABS: TROPONIN I < 0.012 ng/mL
--- NOTE | 2016-04-27 20:04 | EKG REPORT ---
SEVERITY:- BORDERLINE ECG - SINUS RHYTHM PROBABLE LEFT ATRIAL ABNORMALITY BORDERLINE T ABNORMALITIES, ANT-LAT LEADS : Confirmed by: Savannah Tang MD 27-Apr-2016 20:04:19
[2016-04-27] MEDS: NORMAL SALINE 1000 ML 1,000 ML IV PRN (20:51)
[2016-04-27] MEDS: MORPHINE SULFATE 10 MG/ML INJ IV PRN (20:52)
[2016-04-27] MEDS: HEPARIN SOD (PORCINE) 5,000 UNIT/ML 1 ML SYRINGE SUBCUT SCH (21:03)
[2016-04-28] MEDS: MORPHINE SULFATE 10 MG/ML INJ IV PRN ×2 (01:15→06:34)
[2016-04-28 01:38] LABS: CREATINE KINASE MB 0.68 ng/mL (<4.55)
[2016-04-28 01:43] LABS: TROPONIN I < 0.012 ng/mL
[2016-04-28] MEDS: LORAZEPAM INJ 2 MG/1 ML VIAL IV PRN ×2 (02:36→09:27)
[2016-04-28] MEDS: NORMAL SALINE 1000 ML 1,000 ML IV PRN (04:48)
[2016-04-28] MEDS: LANSOPRAZOLE 30 MG TAB.RAP.DR PO SCH ×2 (06:27→18:45)
[2016-04-28] MEDS: HEPARIN SOD (PORCINE) 5,000 UNIT/ML 1 ML SYRINGE SUBCUT SCH ×3 (06:27→23:12)
[2016-04-28 07:24] LABS: HEMATOCRIT 44.7 % (36.0-47.0); HEMOGLOBIN 14.6 g/dL (12.0-15.5); HGB HCT DIFFERENCE -0.9; MEAN CORPUSCULAR HEMOGLOBIN 32.1 pg (27.0-33.4); MEAN CORPUSCULAR HGB CONC 32.6 g/dL (32.0-36.0); MEAN CORPUSCULAR VOLUME 99 fl (80-97); RED BLOOD COUNT 4.54 10^6/uL (3.72-5.28); RED CELL DISTRIBUTION WIDTH 14.1 % (11.5-14.0); WHITE BLOOD COUNT 4.4 10^3/uL (4.0-10.5)
[2016-04-28 07:41] LABS: BAND NEUTROPHILS % (MANUAL) 1 % (3-5); BASOPHILS % (MANUAL) 0 % (0-2); EOSINOPHILS % (MANUAL) 1 % (0-6); LYMPHOCYTES % (MANUAL) 19 % (13-45); TOTAL CELLS COUNTED 100
[2016-04-28 07:42] LABS: RBC MORPHOLOGY COMMENT NORMO-CYTIC/CHROMIC; TOXIC GRANULATION SLIGHT
[2016-04-28 07:43] LABS: ALANINE AMINOTRANSFERASE 28 U/L (9-52); ALBUMIN 3.8 g/dL (3.5-5.0); ALKALINE PHOSPHATASE 99 U/L (38-126); ANION GAP 8 (5-19); ASPARTATE AMINO TRANSFERASE 17 U/L (14-36); BILIRUBIN,TOTAL 0.6 mg/dL (0.2-1.3); BLOOD UREA NITROGEN 6 mg/dL (7-20); CALCIUM 8.7 mg/dL (8.4-10.2); CARBON DIOXIDE 23 mmol/L (22-30); CHLORIDE 108 mmol/L (98-107); CREATINE KINASE 51 U/L (30-135); CREATININE RESULT 0.56 mg/dL (0.52-1.25); GLUCOSE 102 mg/dL (75-110); POTASSIUM 4.7 mmol/L (3.6-5.0); SODIUM 138.5 mmol/L (137-145)
[2016-04-28 07:54] LABS: CREATINE KINASE MB 0.58 ng/mL (<4.55)
[2016-04-28 07:58] LABS: TROPONIN I < 0.012 ng/mL
[2016-04-28] MEDS: NORMAL SALINE 1000 ML 1,000 ML with POTASSIUM CHLORIDE 20 MEQ, MAGNESIUM SULFATE 8 MEQ,... IV PRN ×5 (13:14)
--- NOTE | 2016-04-28 13:23 | PROGRESS NOTE E ---
Progress Note NAME: SIMON WILLIAM : 1955 AGE: 61Y DATE: 04/28/2016 ROOM: 429 SUBJECTIVE: The patient is a 61-year-old female who has a past medical history of smoking, alcohol drinking, hypertension. She was admitted yesterday because of concern of DTs and frequent falls. The patient fell like 3 times and she had like 3 visits to the emergency room. The last one was yesterday. She fell and had a fracture of the left proximal humerus as well as the scapula. She was dehydrated and her sodium was low, and the reason for admission yesterday is just the concern of DTs. The patient is a heavy drinker and she drinks on a daily basis, particularly for the last 2 weeks because of the of her sister. This morning she is very confused and agitated per nurse. The patient is still confused. OBJECTIVE: GENERAL: The patient looks very disoriented, confused. VITAL SIGNS: Temperature 98.5. Heart rate is 105. Blood pressure 137/94, saturation is 99% on room air. Heart rate is up, is 105 today. HEENT: Head: She has a laceration in the forehead from fall. Mucous membranes are dry. Ears: Tympanic membranes intact bilaterally. Pupils round and reactive to light and accommodation bilaterally. Extraocular movements are intact. NECK: Supple. No lymphadenopathy. CARDIOVASCULAR: Tachycardic. No edema. RESPIRATORY: Good air entry bilaterally. No deformity. ABDOMEN: Soft. No organomegaly, no tenderness, no rebound. MUSCULOSKELETAL: no edema. NEUROLOGIC: Awake but she is not oriented. She is oriented to place but not in time or person. She had tremors. DIAGNOSTIC DATA: Labs: White blood count is 4.4, hemoglobin 14.6. Sodium 135.8, chloride 108. ASSESSMENT: 1. IMPENDING DELIRIUM TREMENS. The patient has a strong history of alcohol abuse, drinking on a daily basis and the last drink was yesterday in the morning. She is confused today and tachycardic and very irritable and agitated. 2. FREQUENT FALLS FROM ALCOHOL USE AND DEHYDRATION. 3. HYPONATREMIA FROM DEHYDRATION, RESOLVED. 4. FRACTURE OF THE HUMERUS . 5. HYPERTENSION. She is hypertensive today, yesterday was hypertensive from impending DTs. PLAN: 1. Continue IV fluids. 2. Continue Ativan per schedule. 3. CIWA protocol. 4. Orthopedic consult today; there is no coverage, probably tomorrow. 5. Labs tomorrow morning. DICTATING PHYSICIAN: LUIS ALBERTO MENDOZA M.D. [id number] PHY#: [id number] ID: [id number] JOB#: [id number] ACCT: [id number] cc: > MTDD
[2016-04-28] MEDS ORDERED: LORAZEPAM 1 MG TABLET (TAPER DOSING) PO SCH (14:00)
[2016-04-28] MEDS: LORAZEPAM 1 MG TABLET (TAPER DOSING) PO SCH ×2 (14:57→23:10)
[2016-04-28] MEDS ORDERED: LORAZEPAM INJ 2 MG/ML VIAL (4 MG PRN DOSE) IV (15:00)
[2016-04-29] MEDS: LORAZEPAM 1 MG TABLET (TAPER DOSING) PO SCH ×2 (02:16→08:59)
[2016-04-29] MEDS: NORMAL SALINE 1000 ML 1,000 ML IV PRN (03:18)
[2016-04-29] MEDS: HEPARIN SOD (PORCINE) 5,000 UNIT/ML 1 ML SYRINGE SUBCUT SCH ×2 (05:22→13:11)
[2016-04-29] MEDS: LANSOPRAZOLE 30 MG TAB.RAP.DR PO SCH ×2 (06:15→16:45)
[2016-04-29 07:48] LABS: ABSOLUTE BASOPHILS # (AUTO) 0.1 10^3/uL (0.0-0.2); ABSOLUTE MONOCYTES (AUTO) 0.5 10^3/uL (0.1-1.4); ABSOLUTE NEUT (AUTO) 2.9 10^3/uL (1.7-8.2); BASOPHILS % (AUTO) 1.5 % (0-2); EOSINOPHILS % (AUTO) 0.9 % (0-6); HEMATOCRIT 40.2 % (36.0-47.0); HEMOGLOBIN 13.7 g/dL (12.0-15.5); HGB HCT DIFFERENCE 0.9; LYMPHOCYTES % (AUTO) 22.4 % (13-45); MEAN CORPUSCULAR HEMOGLOBIN 33.3 pg (27.0-33.4); MEAN CORPUSCULAR VOLUME 98 fl (80-97); MONOCYTES % (AUTO) 11.7 % (3-13); RED CELL DISTRIBUTION WIDTH 13.6 % (11.5-14.0); SEGMENTED NEUTROPHILS % (AUTO) 63.5 % (42-78); WHITE BLOOD COUNT 4.6 10^3/uL (4.0-10.5)
[2016-04-29 08:10] LABS: ALBUMIN 3.2 g/dL (3.5-5.0); ANION GAP 11 (5-19); BLOOD UREA NITROGEN 8 mg/dL (7-20); CALCIUM 9.1 mg/dL (8.4-10.2); CARBON DIOXIDE 21 mmol/L (22-30); CHLORIDE 105 mmol/L (98-107); CREATININE RESULT 0.62 mg/dL (0.52-1.25); GLUCOSE 137 mg/dL (75-110); PHOSPHORUS 3.5 mg/dL (2.5-4.5); POTASSIUM 4.4 mmol/L (3.6-5.0); SODIUM 136.6 mmol/L (137-145)
[2016-04-29] MEDS: NORMAL SALINE 1000 ML 1,000 ML with POTASSIUM CHLORIDE 20 MEQ, MAGNESIUM SULFATE 8 MEQ,... IV PRN ×5 (08:59)
[2016-04-29] MEDS: MORPHINE SULFATE 10 MG/ML INJ IV PRN (11:11)
[2016-04-29] MEDS ORDERED: (PENDING PHARMACY ID) (Alprazolam [Xanax Xr 1 Mg Tablet Extended Release] 1 TAB) PO SCH ×2 (12:45→22:00)
[2016-04-29] MEDS ORDERED: LORAZEPAM INJ 2 MG/1 ML VIAL IV PRN (13:42)
[2016-04-29] MEDS ORDERED: HALOPERIDOL LACTATE INJ 5 MG/1 ML VIAL IV PRN (13:43)
--- NOTE | 2016-04-29 13:48 | PDOC PROGRESS REPORT ---
Subjective Progress Note for:: 04/29/16 Subjective:: Patient is complaining of severe some pain in the shoulder she is quite agitated States she wants to go home Patient a needs to have more sedation at times She is tremulous and anxious Physical Exam Vital Signs: Temp Pulse Resp BP Pulse Ox 98.1 F 88 20 150/91 H 100 04/29/16 11:19 04/29/16 11:19 04/29/16 11:19 04/29/16 11:19 04/29/16 11:19 Intake & Output 04/28/16 04/29/16 04/30/16 00:59 00:59 00:59 Intake Total 2867 620 Output Total 1000 400 Balance 1867 220 Weight 65.9 kg General appearance: PRESENT: no acute distress, well-developed, well-nourished Head exam: PRESENT: atraumatic, normocephalic Eye exam: PRESENT: conjunctiva pink, EOMI, PERRLA. ABSENT: scleral icterus Ear exam: PRESENT: normal external ear exam Mouth exam: PRESENT: moist, tongue midline Neck exam: ABSENT: carotid bruit, JVD, lymphadenopathy, thyromegaly Respiratory exam: PRESENT: clear to auscultation paul, other - Tenderness left clavicle. ABSENT: rales, rhonchi, wheezes Cardiovascular exam: PRESENT: RRR. ABSENT: diastolic murmur, rubs, systolic murmur Pulses: PRESENT: normal dorsalis pedis pul Vascular exam: PRESENT: normal capillary refill GI/Abdominal exam: PRESENT: normal bowel sounds, soft. ABSENT: distended, guarding, mass, organolmegaly, rebound, tenderness Rectal exam: PRESENT: deferred Extremities exam: PRESENT: full ROM. ABSENT: calf tenderness, clubbing, pedal edema Neurological exam: PRESENT: alert, awake, CN II-XII grossly intact. ABSENT: motor sensory deficit Psychiatric exam: PRESENT: agitated Skin exam: PRESENT: dry, intact, warm. ABSENT: cyanosis, rash Results Laboratory Results: 04/29/16 07:36 04/29/16 07:36 04/29/16 04/29/16 07:36 07:36 WBC 4.6 RBC 4.10 Hgb 13.7 Hct 40.2 MCV 98 H MCH 33.3 MCHC 34.0 RDW 13.6 Plt Count 137 L Seg Neutrophils % 63.5 Lymphocytes % 22.4 Monocytes % 11.7 Eosinophils % 0.9 Basophils % 1.5 Absolute Neutrophils 2.9 Absolute Lymphocytes 1.0 Absolute Monocytes 0.5 Absolute Eosinophils 0.0 Absolute Basophils 0.1 Sodium 136.6 L Potassium 4.4 Chloride 105 Carbon Dioxide 21 L Anion Gap 11 BUN 8 Creatinine 0.62 Est GFR ( Amer) > 60 Est GFR (Non-Af Amer) > 60 Glucose 137 H Calcium 9.1 Phosphorus 3.5 Albumin 3.2 L 04/28/16 04/28/16 04/28/16 00:59 00:59 06:31 Creatine Kinase 58 51 CK-MB (CK-2) 0.68 Troponin I < 0.012 04/28/16 06:31 Creatine Kinase CK-MB (CK-2) 0.58 Troponin I < 0.012 Impressions: Upper Extremity CT 04/27/16 00:00 IMPRESSION: Nondisplaced fracture distal clavicle. Shoulder X-Ray 04/27/16 14:29 IMPRESSION: Suspect an acute spiral fracture left proximal humeral metaphysis on these limited views. Consider CT for followup Acute fracture distal left clavicle without widening of the AC joint. Patient has an old subcapital left humeral neck fracture Chest X-Ray 04/27/16 17:03 IMPRESSION: Possible nondisplaced fracture distal left clavicle. Assessment & Plan - Diagnosis (1) Alcohol withdrawal Qualifiers: Complication of substance-induced condition: uncomplicated Qualified Code(s): F10.230 - Alcohol dependence with withdrawal, uncomplicated Is this a current diagnosis for this admission?: YesPlan: Patient is anxious and agitated at this time A increase Ativan and add 2 mg IV every 2 hours when necessary Haldol when necessary (2) Closed fracture of distal clavicle Qualifiers: Encounter type: initial encounter Fracture alignment: displaced Laterality: left Qualified Code(s): S42.032A - Displaced fracture of lateral end of left clavicle, initial encounter for closed fracture Is this a current diagnosis for this admission?: YesPlan: No orthopedic consult is needed We will order a sling to left arm (3) Head injury Qualifiers: Encounter type: subsequent encounter Qualified Code(s): S09.90XD - Unspecified injury of head, subsequent encounter Is this a current diagnosis for this admission?: Yes - Time Time Spent with patient: 25-34 minutes
[2016-04-29] MEDS ORDERED: HYDROXYZINE PAMOATE 25 MG CAPSULE PO SCH (14:00)
[2016-04-29] MEDS ORDERED: (PENDING PHARMACY ID) (Hydroxyzine Hcl [Hydroxyzine Hcl] 25 MG) PO SCH (14:00)
--- NOTE | 2016-04-29 14:26 | HISTORY AND PHYSICAL E ---
History and Physical NAME: SIMON WILLIAM : 1955 AGE: 61Y ADMITTED: 04/27/2016 ROOM: 429 PRIMARY PHYSICIAN: KEVIN LONG M.D. CHIEF COMPLAINT: Frequent fall, possible alcohol withdrawal. HISTORY OF PRESENT ILLNESS: The patient is a 61-year-old female who has a history of heavy alcohol drinking, hypertension, COPD, hyperlipidemia, asthma, and anxiety, on multiple antianxiety and mood stabilizer medications. The patient came for the last 2 weeks, 3 times to the emergency room with a fall. She fell this morning and she came to the emergency room with pain and swelling in the left shoulder and her left shoulder had a fracture. She came to the emergency room yesterday also with fall. However, today, she was found to have a fracture, and she was also confused and agitated and the patient had a history of heavy alcohol drinking and she drinks on a daily basis, but for the last 2 weeks, her sister committed suicide and the patient became depressed and she drinks more lately. She herself is a very poor historian, but she denies any fever or chills. Her last drink was today. REVIEW OF SYSTEMS: Twelve systems are difficult to review because of the patient's altered mental status. PAST MEDICAL HISTORY: 1. History of hypertension. 2. Depression. 3. Asthma. 4. COPD. 5. Insomnia. SOCIAL HISTORY: The patient has smoked heavily for over 50 years. She smokes a pack a day. She also drinks alcohol heavily, almost on a daily basis. Denies IV drug use. The patient has 3 kids, 1 boy and 2 girls. One daughter, she has she is on disability. ALLERGIES: She is allergic to multiple medications. 1. CELEXA. 2. PAXIL. 3. DEXAMETHASONE. 4. DOXYLAMINE. 5. PROZAC. 6. TERBINOFINE. MEDICATIONS: 1. The patient is on an inhaler. 2. Advair. 3. Lexapro. 4. Edwards. 5. Xanax 1 mg tablet p.o. b.i.d. 6. Lisinopril. 7. Promethazine 1 tablet p.o. t.i.d. 8. Bactrim. 9. Percocet. 10. . 11. Lisinopril, dose unknown. 12. Duloxetine. 13. Xanax 1 mg extended release every bedtime p.r.n. PHYSICAL EXAMINATION: GENERAL: The patient is well nourished. Patient appearing well, not in distress. VITAL SIGNS: Temperature 97.9, heart rate is 108, blood pressure 121/87, respiratory rate 70, saturation 100% on room air. Weight is 66. HEENT: Head normocephalic, atraumatic. Conjunctivae are clear. No icterus. Extraocular movements intact. Pupils round and reactive to light and accommodation bilaterally. Moist mucous membranes. Nose: No discharge from the nose. NECK: Trachea is midline. No thyromegaly. No lymphadenopathy. RESPIRATORY: Chest inspection showed no deformity. Lungs clear to auscultation bilaterally. CARDIOVASCULAR: Normal S1, S2. Regular rate and rhythm. No murmur. No gallop. No edema. ABDOMEN: Soft and nontender. No guarding. Bowel sounds are active. GENITOURINARY: Deferred. RECTAL: Deferred. EXTREMITIES: No edema. No cyanosis. MUSCULOSKELETAL: She had swelling in the left upper shoulder with tenderness and mild deformity. SKIN: There is no rash. VASCULAR: Normal peripherally. NEUROLOGIC: Alert, awake, not oriented to time, place, or person. Normal speech. Cranial nerves are grossly intact. Strength is 5/5 in all extremities. PSYCHIATRIC: Depressed. DIAGNOSTIC DATA: Labs: White blood count is 8.1, hemoglobin 15. Sodium 133, potassium is 4.4, BUN 5, normal liver enzymes. INR is 0.9. Urine drug screen is positive for opioids. Alcohol less than 10. Urinalysis: Large leukocyte esterase. Chest x-ray unremarkable. Shoulder x-ray showed a possible fracture of the left proximal humerus, acute fracture of distal left clavicle without widening of AC joint. ASSESSMENT AND PLAN: The patient is a 61-year-old female who has a past medical history of hypertension, history of smoking, history of heavy alcohol drinking. She came with a fall, frequently falls, and had a suspected fracture of the left proximal humerus and fractured clavicle, and there is suspicion also for alcohol intoxication withdrawal. 1. Frequent falls, probably from alcohol abuse and multiple medications. 2. Fracture of the left proximal humerus. 3. Dehydration. 4. Alcohol abuse, possible withdrawal. 5. Hypertension. 6. Asthma. 7. Depression. PLAN: 1. Will admit the patient to telemetry. 2. Will order CT scan of left humerus without contrast to look for fracture. 3. Pain control. 4. IV fluids with a banana bag and D5 NS at 125 mL per hour. 5. Will do urine osmolality, serum osmolality, urine electrolytes. The patient has hyponatremia, probably from alcohol use. 6. Ativan 1 mg IV every 3 hours p.r.n. 7. Orthopedic consult in the morning. TIME SPENT: I spent 1 hour and 10 minutes. DICTATING PHYSICIAN: LUIS ALBERTO MENDOZA M.D. [id number] PHY#: [id number] ID: [id number] JOB#: [id number] ACCT: [id number] cc:LUIS ALBERTO MENDOZA M.D. >
[2016-04-29] MEDS ORDERED: HALOPERIDOL LACTATE INJ 5 MG/1 ML VIAL ONE (14:31)
[2016-04-29] MEDS ORDERED: LORAZEPAM 1 MG TABLET (TAPER DOSING) PO SCH (16:00)
[2016-04-29] MEDS ORDERED: LAMOTRIGINE PO SCH (18:00)
[2016-04-29] MEDS ORDERED: OXYCODONE-ACETAMINOPHEN 5-325 MG TABLET PO PRN (18:00)
[2016-04-29] MEDS: LAMOTRIGINE 25 MG TAB.CHEW PO SCH (22:53)
[2016-04-30] MEDS: HEPARIN SOD (PORCINE) 5,000 UNIT/ML 1 ML SYRINGE SUBCUT SCH ×4 (00:12→23:49)
[2016-04-30] MEDS: NORMAL SALINE 1000 ML 1,000 ML IV PRN (00:16)
[2016-04-30] MEDS: LANSOPRAZOLE 30 MG TAB.RAP.DR PO SCH ×2 (06:01→17:16)
[2016-04-30] MEDS: LISINOPRIL 5 MG TABLET PO SCH (10:44)
[2016-04-30] MEDS: NORMAL SALINE 1000 ML 1,000 ML with POTASSIUM CHLORIDE 20 MEQ, MAGNESIUM SULFATE 8 MEQ,... IV PRN ×5 (10:45)
[2016-04-30] MEDS: LAMOTRIGINE 25 MG TAB.CHEW PO SCH ×2 (10:45→22:13)
[2016-04-30] MEDS: TIOTROPIUM BROMIDE DPI 5 CAP/KIT (18 MCG/CAP) IH SCH (10:45)
[2016-04-30] MEDS: DULOXETINE HCL 30 MG CAPSULE.DR PO SCH (10:45)
--- NOTE | 2016-04-30 13:33 | PDOC PROGRESS REPORT ---
Subjective Progress Note for:: 04/30/16 Subjective:: Patient is alert awake Still on withdrawal protocol She has decreased tremors Less agitated than yesterday She wishes to go home and we are trying to convince her to stay until Friday Ativan is being decreased now to 2 mg IV every 8 hours Physical Exam Vital Signs: Temp Pulse Resp BP Pulse Ox 98.3 F 86 16 153/92 H 96 04/30/16 07:54 04/30/16 11:52 04/30/16 11:52 04/30/16 07:54 04/30/16 11:52 Intake & Output 04/29/16 04/30/16 05/01/16 00:59 00:59 00:59 Intake Total 2867 2609 1240 Output Total 1000 1000 300 Balance 1867 1609 940 Weight 65.9 kg General appearance: PRESENT: no acute distress, well-developed, well-nourished Head exam: PRESENT: atraumatic, normocephalic Eye exam: PRESENT: conjunctiva pink, EOMI, PERRLA. ABSENT: scleral icterus Ear exam: PRESENT: normal external ear exam Mouth exam: PRESENT: moist, tongue midline Neck exam: ABSENT: carotid bruit, JVD, lymphadenopathy, thyromegaly Respiratory exam: PRESENT: clear to auscultation paul. ABSENT: rales, rhonchi, wheezes Cardiovascular exam: PRESENT: RRR. ABSENT: diastolic murmur, rubs, systolic murmur Pulses: PRESENT: normal dorsalis pedis pul Vascular exam: PRESENT: normal capillary refill GI/Abdominal exam: PRESENT: normal bowel sounds, soft. ABSENT: distended, guarding, mass, organolmegaly, rebound, tenderness Rectal exam: PRESENT: deferred Extremities exam: PRESENT: full ROM. ABSENT: calf tenderness, clubbing, pedal edema Neurological exam: PRESENT: alert, awake, oriented to person, oriented to place , oriented to time, oriented to situation, CN II-XII grossly intact. ABSENT: motor sensory deficit Psychiatric exam: PRESENT: appropriate affect, normal mood. ABSENT: homicidal ideation, suicidal ideation Skin exam: PRESENT: dry, intact, warm. ABSENT: cyanosis, rash Results Laboratory Results: 04/29/16 07:36 04/29/16 07:36 04/28/16 04/28/16 04/28/16 00:59 00:59 06:31 Creatine Kinase 58 51 CK-MB (CK-2) 0.68 Troponin I < 0.012 04/28/16 06:31 Creatine Kinase CK-MB (CK-2) 0.58 Troponin I < 0.012 Impressions: Upper Extremity CT 04/27/16 00:00 IMPRESSION: Nondisplaced fracture distal clavicle. Shoulder X-Ray 04/27/16 14:29 IMPRESSION: Suspect an acute spiral fracture left proximal humeral metaphysis on these limited views. Consider CT for followup Acute fracture distal left clavicle without widening of the AC joint. Patient has an old subcapital left humeral neck fracture Chest X-Ray 04/27/16 17:03 IMPRESSION: Possible nondisplaced fracture distal left clavicle. Assessment & Plan - Diagnosis (1) Alcohol withdrawal Qualifiers: Complication of substance-induced condition: uncomplicated Qualified Code(s): F10.230 - Alcohol dependence with withdrawal, uncomplicated Is this a current diagnosis for this admission?: Yes (2) Closed fracture of distal clavicle Qualifiers: Encounter type: initial encounter Fracture alignment: displaced Laterality: left Qualified Code(s): S42.032A - Displaced fracture of lateral end of left clavicle, initial encounter for closed fracture Is this a current diagnosis for this admission?: Yes (3) Head injury Qualifiers: Encounter type: subsequent encounter Qualified Code(s): S09.90XD - Unspecified injury of head, subsequent encounter Is this a current diagnosis for this admission?: Yes - Time Time Spent with patient: We will decrease Ativan Discontinue IV fluids PT evaluation in a.m. Consider discharge within 24-48 hrs. if patient is stable and safe ambulating Time Spent with patient: 25-34 minutes
[2016-04-30] MEDS: LORAZEPAM 1 MG TABLET PO SCH ×2 (14:13→22:14)
[2016-05-01] MEDS: LORAZEPAM 1 MG TABLET PO SCH (06:20)
[2016-05-01] MEDS: HEPARIN SOD (PORCINE) 5,000 UNIT/ML 1 ML SYRINGE SUBCUT SCH (06:20)
[2016-05-01] MEDS: LANSOPRAZOLE 30 MG TAB.RAP.DR PO SCH (06:21)
[2016-05-01] MEDS ORDERED: THIAMINE HCL 100 MG TABLET PO SCH (10:00)
[2016-05-01] MEDS: LISINOPRIL 5 MG TABLET PO SCH (11:44)
[2016-05-01] MEDS: DULOXETINE HCL 30 MG CAPSULE.DR PO SCH (11:44)
[2016-05-01] MEDS: LAMOTRIGINE 25 MG TAB.CHEW PO SCH (11:45)
[2016-05-01] MEDS: TIOTROPIUM BROMIDE DPI 5 CAP/KIT (18 MCG/CAP) IH SCH (11:46)
[2016-05-01] MEDS ORDERED: LORAZEPAM 1 MG TABLET (TAPER DOSING) PO SCH (14:00)
[2016-05-01 15:01] VITALS: BP 108/62
--- NOTE | 2016-05-01 17:18 | PDOC DISCHARGE SUMMARY ---
General - Admit/Disc Date/PCP Admission Date/Primary Care Provider: 04/27/16 18:23 THIEN DUCKWORTH Discharge Date: 05/01/16 - Discharge Diagnosis (1) Alcohol withdrawal Is this a current diagnosis for this admission?: YesSummary: Patient was placed on Ativan protocole She was confused for the first 48-72 hours then cooperative and able to ambulate safely (2) Closed fracture of distal clavicle Is this a current diagnosis for this admission?: YesSummary: she was given a sling and referred to orthopedics (3) Head injury Is this a current diagnosis for this admission?: YesSummary: Patient had a negative CT head Her mentation improved during her stay She was alert , awake , cooperative at discharge - Additional Information Discharge Diet: As Tolerated Discharge Activity: Activity As Tolerated Home Medications: Alprazolam [Xanax Xr 1 mg Tablet Extended Release] 1 tab PO BID 01/19/15 Duloxetine HCl 3 cap PO DAILY 01/19/15 Lisinopril 1 tab PO DAILY 01/19/15 Tiotropium [place] [Spiriva Handihaler 18 mcg/dose (30 Dose)] 1 cap DAILY Lamotrigine 2 tab PO BID 04/29/16 Oxycodone HCl/Acetaminophen [Percocet 5-325 mg Tablet] 1 tab PO Q6HP PRN #20 tablet 05/01/16 Thiamine HCl [Thiamine 100 mg Tablet] 100 mg PO DAILY #30 tablet 05/01/16 History of Present Illness Patient complains of: fall; head injury History of Present Illness: SIMON WILLIAM is a 61 year old female with a known hx of heavy alcohol abuse was admitted after she sustained a fall at home In the ED she was diagnosed of fracture of left clavicle and early alcohol withdrawal She was admitted under Hospitalist Service to [facility] Hospital Course Hospital Course: see above Physical Exam Vital Signs: Temp Pulse Resp BP Pulse Ox 98.1 F 95 16 108/62 98 05/01/16 14:54 05/01/16 14:54 05/01/16 14:54 05/01/16 14:54 05/01/16 14:54 Intake & Output 04/30/16 05/01/16 05/02/16 00:59 00:59 00:59 Intake Total 2609 1462 1045 Output Total 1000 600 750 Balance 1609 862 295 Weight 65.9 kg 65.9 kg General appearance: PRESENT: no acute distress, well-developed, well-nourished Head exam: PRESENT: atraumatic, normocephalic Eye exam: PRESENT: conjunctiva pink, EOMI, PERRLA. ABSENT: scleral icterus Ear exam: PRESENT: normal external ear exam Mouth exam: PRESENT: moist, tongue midline Neck exam: ABSENT: carotid bruit, JVD, lymphadenopathy, thyromegaly Respiratory exam: PRESENT: clear to auscultation paul. ABSENT: rales, rhonchi, wheezes Cardiovascular exam: PRESENT: RRR. ABSENT: diastolic murmur, rubs, systolic murmur Pulses: PRESENT: normal dorsalis pedis pul Vascular exam: PRESENT: normal capillary refill GI/Abdominal exam: PRESENT: normal bowel sounds, soft. ABSENT: distended, guarding, mass, organolmegaly, rebound, tenderness Rectal exam: PRESENT: deferred Extremities exam: PRESENT: full ROM. ABSENT: calf tenderness, clubbing, pedal edema Neurological exam: PRESENT: alert, awake, oriented to person, oriented to place , oriented to time, oriented to situation, CN II-XII grossly intact. ABSENT: motor sensory deficit Psychiatric exam: PRESENT: appropriate affect, normal mood. ABSENT: homicidal ideation, suicidal ideation Skin exam: PRESENT: dry, intact, warm. ABSENT: cyanosis, rash Results Laboratory Results: 04/29/16 07:36 04/29/16 07:36 04/28/16 04/28/16 04/28/16 00:59 00:59 06:31 Creatine Kinase 58 51 CK-MB (CK-2) 0.68 Troponin I < 0.012 04/28/16 06:31 Creatine Kinase CK-MB (CK-2) 0.58 Troponin I < 0.012 04/27/16 04/27/16 04/27/16 14:59 14:59 14:59 MCV 98 H RDW Plt Count Band Neutrophils % Monocytes % (Manual) APTT 41.4 H Sodium Chloride Carbon Dioxide BUN Glucose Hemoglobin A1c % Total Protein Albumin Urine Blood SMALL H Ur Leukocyte Esterase LARGE H Urine Sodium 04/27/16 04/27/16 04/28/16 14:59 14:59 06:31 MCV RDW Plt Count Band Neutrophils % Monocytes % (Manual) APTT Sodium 133.0 L Chloride 108 H Carbon Dioxide BUN 5 L 6 L Glucose 114 H Hemoglobin A1c % Total Protein 6.0 L Albumin Urine Blood Ur Leukocyte Esterase Urine Sodium 28 L 04/28/16 04/28/16 04/29/16 06:31 09:27 07:36 MCV 99 H 98 H RDW 14.1 H Plt Count 141 L 137 L Band Neutrophils % 1 L Monocytes % (Manual) 17 H APTT Sodium Chloride Carbon Dioxide BUN Glucose Hemoglobin A1c % 6.1 H Total Protein Albumin Urine Blood Ur Leukocyte Esterase Urine Sodium 04/29/16 07:36 MCV RDW Plt Count Band Neutrophils % Monocytes % (Manual) APTT Sodium 136.6 L Chloride Carbon Dioxide 21 L BUN Glucose 137 H Hemoglobin A1c % Total Protein Albumin 3.2 L Urine Blood Ur Leukocyte Esterase Urine Sodium Impressions: Upper Extremity CT 04/27/16 00:00 IMPRESSION: Nondisplaced fracture distal clavicle. Shoulder X-Ray 04/27/16 14:29 IMPRESSION: Suspect an acute spiral fracture left proximal humeral metaphysis on these limited views. Consider CT for followup Acute fracture distal left clavicle without widening of the AC joint. Patient has an old subcapital left humeral neck fracture Chest X-Ray 04/27/16 17:03 IMPRESSION: Possible nondisplaced fracture distal left clavicle. Plan Discharge Plan: follow up with Dr Snider in 1 week Follow up with Dr Enriquez in 1 month Time Spent: Less than 30 Minutes
[2016-05-02] MEDS ORDERED: LORAZEPAM 1 MG TABLET (TAPER DOSING) PO SCH (16:00)
[2016-05-03] MEDS ORDERED: LORAZEPAM 1 MG TABLET (TAPER DOSING) PO SCH (20:00)
== END 2016-05-01 15:19 | disposition home health service (06) | DRG 897 ==
LOC: ER 14:21 → EH 18:23 → 4S 19:32
PROVIDERS: ADMIT Internal Medicine; ATTEND Internal Medicine
DX: F10.239 Alcohol dependence with withdrawal, unspecified (principal); E87.1 Hypo-osmolality and hyponatremia; I10 Essential (primary) hypertension; S42.032A Displaced fracture of lateral end of left clavicle, initial encounter for closed fracture; W19.XXXA Unspecified fall, initial encounter; Y92.002 Bathroom of unspecified non-institutional (private) residence as the place of occurrence of the external cause; E86.0 Dehydration; Z91.81 History of falling; J45.909 Unspecified asthma, uncomplicated; S01.81XA Laceration without foreign body of other part of head, initial encounter; J44.9 Chronic obstructive pulmonary disease, unspecified; E78.5 Hyperlipidemia, unspecified; F41.9 Anxiety disorder, unspecified; G47.00 Insomnia, unspecified; F17.210 Nicotine dependence, cigarettes, uncomplicated; R41.0 Disorientation, unspecified; F31.9 Bipolar disorder, unspecified; S81.812D Laceration without foreign body, left lower leg, subsequent encounter; Z63.4 Disappearance and death of family member; Z88.8 Allergy status to other drugs, medicaments and biological substances; Z85.41 Personal history of malignant neoplasm of cervix uteri; Z79.899 Other long term (current) drug therapy
CPT/HCPCS: 36415; 70450; 71010; 72125; 80053; 80069; 80307; 81001; 82140; 82550; 82553; 83036; 84300; 84484; 85025; 85610; 85730; 87086; 93005; 93010; 99285; G8978-GP; G8979-GP; G8980-GP; J1630; J1644; J2060; J2270; J3411; J3475; J3480; J3490; J7030

== ENCOUNTER 2016-07-01 21:57 | Emergency (ER) | payer MEDICARE, MEDICAID ==
[2016-07-01] MEDS ORDERED: LIDOCAINE 1%/EPINEPHRINE INJ 20 ML VIAL INJ ONE (22:46)
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
[2016-07-02 07:55] VITALS: BP 148/72
== END 2016-07-02 06:30 | disposition home or self-care (01) ==
LOC: ER 21:57
PROC: 0HQEXZZ Repair Left Lower Arm Skin, External Approach (ICD-10-PCS; principal; 2016-07-01)
DX: S22.32XA Fracture of one rib, left side, initial encounter for closed fracture (principal); S56.922A Laceration of unspecified muscles, fascia and tendons at forearm level, left arm, initial encounter; S61.512A Laceration without foreign body of left wrist, initial encounter; S51.812A Laceration without foreign body of left forearm, initial encounter; W25.XXXA Contact with sharp glass, initial encounter; Y92.59 Other trade areas as the place of occurrence of the external cause; F10.129 Alcohol abuse with intoxication, unspecified; I10 Essential (primary) hypertension; J44.9 Chronic obstructive pulmonary disease, unspecified; F17.200 Nicotine dependence, unspecified, uncomplicated; Z85.41 Personal history of malignant neoplasm of cervix uteri
CPT/HCPCS: 12002; 99283; 73090; 71101; J3490

== ENCOUNTER 2016-08-21 11:25 | Emergency (ER) | payer MEDICARE, OTHER, MEDICAID ==
--- NOTE | 2016-08-21 11:58 | ER Document Report ---
ED Medical Screen (RME) - General Chief Complaint: Altered Mental Status Stated Complaint: CONFUSION,INSTABILITY Time Seen by Provider: 08/21/16 11:54 Notes: Patient has been confused and forgetful. She has a history of depression and anxiety and goes to [facility]. She was last seen there on 08/05. She called them yesterday and asking for refills of her medicines and they became concerned and asked for a wellness check. She was seen yesterday and again today and according to a roommate who lives with her for the past couple months, patient has been very confused and forgetful of late. She is also been falling frequently. No documented history of dementia. TRAVEL OUTSIDE OF THE [place] IN LAST 30 DAYS: No - Related Data Allergies/Adverse Reactions: citalopram hydrobromide [From Celexa] Allergy (Verified 08/21/16 11:33) dextromethorphan HBr [From NyQuil] Allergy (Verified 08/21/16 11:33) doxylamine [From NyQuil] Allergy (Verified 08/21/16 11:33) fluoxetine HCl [From Prozac] Allergy (Verified 08/21/16 11:33) pseudoephedrine HCl [From NyQuil] Allergy (Verified 08/21/16 11:33) trazodone [Trazodone] Allergy (Verified 08/21/16 11:33) antidepressants Adverse Reaction (Uncoded 08/21/16 11:33) Hallucinations Past Medical History - Social History Family history: CVA, Malignancy - Past Medical History Cardiac Medical History: Reports: Hx Hypertension Denies: Hx Coronary Artery Disease, Hx Heart Attack Pulmonary Medical History: Reports: Hx Asthma, Hx Bronchitis, Hx COPD, Hx Pneumonia Denies: Hx Tuberculosis Neurological Medical History: Reports: Hx Migraine. Denies: Hx Cerebrovascular Accident Renal/ Medical History: Denies: Hx Peritoneal Dialysis Malignancy Medical History: Reports: Hx Cervical Cancer GI Medical History: Reports: Hx Cirrhosis, Hx Gastritis Musculoskeltal Medical History: Denies Hx Arthritis, Reports Hx Muscle Weakness , Reports Hx Musculoskeletal Trauma Psychiatric Medical History: Reports: Hx Anxiety, Hx Bipolar Disorder, Hx Depression Traumatic Medical History: Reports: Hx Fractures Past Surgical History: Reports: Hx Section - x3, Hx Gynecologic Surgery - cervical dysplasia, Hx Tonsillectomy. Denies: Hx Pacemaker - Immunizations Immunizations up to date: Yes Hx Diphtheria, Pertussis, Tetanus Vaccination: Yes Physical Exam - Vital signs Vitals: Temp Pulse Resp BP Pulse Ox 98.9 F 100 18 144/100 H 100 08/21/16 11:33 08/21/16 11:33 08/21/16 11:33 08/21/16 11:33 08/21/16 11:33 Course - Vital Signs Vital signs: Temp Pulse Resp BP Pulse Ox 98.9 F 100 18 144/100 H 100 08/21/16 11:33 08/21/16 11:33 08/21/16 11:33 08/21/16 11:33 08/21/16 11:33
[2016-08-21 12:39] LABS: ABSOLUTE BASOPHILS # (AUTO) 0.1 10^3/uL (0.0-0.2); ABSOLUTE LYMPHOCYTES (AUTO) 1.3 10^3/uL (0.5-4.7); ABSOLUTE MONOCYTES (AUTO) 0.9 10^3/uL (0.1-1.4); BASOPHILS % (AUTO) 0.7 % (0-2); EOSINOPHILS % (AUTO) 0.2 % (0-6); HEMOGLOBIN 15.5 g/dL (12.0-15.5); HGB HCT DIFFERENCE 0.5; LYMPHOCYTES % (AUTO) 18.2 % (13-45); MEAN CORPUSCULAR HEMOGLOBIN 31.8 pg (27.0-33.4); MEAN CORPUSCULAR HGB CONC 33.7 g/dL (32.0-36.0); MEAN CORPUSCULAR VOLUME 95 fl (80-97); MONOCYTES % (AUTO) 11.8 % (3-13); RED BLOOD COUNT 4.87 10^6/uL (3.72-5.28); RED CELL DISTRIBUTION WIDTH 13.6 % (11.5-14.0); SEGMENTED NEUTROPHILS % (AUTO) 69.1 % (42-78); WHITE BLOOD COUNT 7.2 10^3/uL (4.0-10.5)
--- NOTE | 2016-08-21 12:42 | RADIOLOGY REPORT (SQ) ---
EXAM DESCRIPTION: CT HEAD WITHOUT COMPLETED DATE/TIME: 08/21/2016 12:28 pm REASON FOR STUDY: Confusion, forgetful, falling a lot COMPARISON: 04/26/2016. TECHNIQUE: Axial images acquired through the brain without intravenous contrast. Images reviewed wi th bone, brain and subdural windows. Images stored on PACS. All CT scanners at this facility use dose modulation, iterative reconstruction, and/or weight based d osing when appropriate to reduce radiation dose to as low as reasonably achievable (ALARA). [facility]: Dose Right [facility]: CareDose [facility]: Dose Right [facility]: Teradose 4D [facility]: [employer] Packets RADIATION DOSE: 64.61 mGy. LIMITATIONS: None. FINDINGS: VENTRICLES: Normal size and contour. CEREBRUM: No masses. No hemorrhage. No midline shift. Normal petty/white matter differentiation. N o evidence for acute infarction. CEREBELLUM: No masses. No hemorrhage. No alteration of density. No evidence for acute infarction. EXTRAAXIAL SPACES: No fluid collections. No masses. ORBITS AND GLOBE: No intra- or extraconal masses. Normal contour of globe without masses. CALVARIUM: No fracture. PARANASAL SINUSES: No fluid or mucosal thickening. SOFT TISSUES: No mass or hematoma. OTHER: No other significant finding. IMPRESSION: NORMAL BRAIN CT WITHOUT CONTRAST. TECHNICAL DOCUMENTATION: JOB ID: [id number] Quality ID # [id number]: Final reports with documentation of one or more dose reduction techniques (e.g., Au tomated exposure control, adjustment of the mA and/or kV according to patient size, use of iterative reconstruction technique) 2010 [employer]- All Rights Reserved
[2016-08-21 12:52] LABS: ALANINE AMINOTRANSFERASE 28 U/L (9-52); ALBUMIN 5.1 g/dL (3.5-5.0); ALKALINE PHOSPHATASE 101 U/L (38-126); ANION GAP 16 (5-19); ASPARTATE AMINO TRANSFERASE 24 U/L (14-36); BILIRUBIN,DIRECT 0.4 mg/dL (0.0-0.4); BILIRUBIN,TOTAL 0.8 mg/dL (0.2-1.3); BLOOD UREA NITROGEN 4 mg/dL (7-20); CALCIUM 10.2 mg/dL (8.4-10.2); CARBON DIOXIDE 23 mmol/L (22-30); CHLORIDE 93 mmol/L (98-107); GLUCOSE 107 mg/dL (75-110); POTASSIUM 4.2 mmol/L (3.6-5.0); SODIUM 131.9 mmol/L (137-145); TOTAL PROTEIN 8.1 g/dL (6.3-8.2)
--- NOTE | 2016-08-21 13:07 | RADIOLOGY REPORT (SQ) ---
EXAM DESCRIPTION: CHEST PA/LAT COMPLETED DATE/TIME: 08/21/2016 12:43 pm REASON FOR STUDY: Altered mental status, smoker COMPARISON: 04/09/2016 EXAM PARAMETERS: NUMBER OF VIEWS: two views TECHNIQUE: Digital Frontal and Lateral radiographic views of the chest acquired. RADIATION DOSE: NA LIMITATIONS: none FINDINGS: LUNGS AND PLEURA: No opacities, masses or pneumothorax. No pleural effusion. MEDIASTINUM AND HILAR STRUCTURES: No masses or contour abnormalities. HEART AND VASCULAR STRUCTURES: Heart normal size. No evidence for failure. BONES: No acute findings. HARDWARE: None in the chest. OTHER: No other significant finding. IMPRESSION: NO SIGNIFICANT RADIOGRAPHIC FINDING IN THE CHEST. TECHNICAL DOCUMENTATION: JOB ID: [id number] [employer]- All Rights Reserved
--- NOTE | 2016-08-21 13:09 | RADIOLOGY REPORT (SQ) ---
EXAM DESCRIPTION: SHOULDER LEFT 2 OR MORE VIEWS COMPLETED DATE/TIME: 08/21/2016 12:43 pm REASON FOR STUDY: fell and reinjured her left shoulder COMPARISON: 04/27/2016. NUMBER OF VIEWS: Three views. TECHNIQUE: Internal rotation, external rotation, and Y view images acquired of the left shoulder. LIMITATIONS: None. FINDINGS: MINERALIZATION: Normal. BONES: Old fractures surgical neck humerus and distal clavicle. No acute fracture or dislocation. N o worrisome bone lesions. JOINTS: No dislocation. VISUALIZED LUNGS AND RIBS: No pneumothorax. No rib fracture. SOFT TISSUES: No radiopaque foreign body. OTHER: No other significant finding. IMPRESSION: NO RADIOGRAPHIC EVIDENCE OF ACUTE INJURY. TECHNICAL DOCUMENTATION: JOB ID: [id number] [employer]- All Rights Reserved
--- NOTE | 2016-08-21 13:30 | EKG REPORT ---
SEVERITY:- BORDERLINE ECG - SINUS RHYTHM BORDERLINE T ABNORMALITIES, ANT-LAT LEADS : Confirmed by: El Werner MD 21-Aug-2016 13:28:15
[2016-08-21 14:42] LABS: APPEARANCE,URINE CLOUDY; BILIRUBIN,URINE NEGATIVE (NEGATIVE); GLUCOSE, URINE NEGATIVE (NEGATIVE); KETONES,URINE TRACE mg/dL (NEGATIVE); LEUKOCYTE ESTERASE,URINE LARGE (NEGATIVE); NITRITE,URINE NEGATIVE (NEGATIVE); PROTEIN,URINE NEGATIVE (NEGATIVE); UROBILINOGEN,URINE NEGATIVE mg/dL (<2.0)
--- NOTE | 2016-08-21 15:05 | ER Document Report ---
ED General - General Chief Complaint: Altered Mental Status Stated Complaint: CONFUSION,INSTABILITY Time Seen by Provider: 08/21/16 11:54 Mode of Arrival: Ambulatory Information source: Patient, Outside Facility Records Cannot obtain history due to: Altered mental status Notes: 61-year-old female presents with the mobile crisis unit with concerns for confusion. Patient notes she has been confused over the past 3 months. Patient states that she attempted to get medication refills but a wellness check was performed for the patient behavior TRAVEL OUTSIDE OF THE [place] IN LAST 30 DAYS: No - HPI Onset: Just prior to arrival Onset/Duration: Persistent Quality of pain: No pain Severity: Mild Pain Level: Denies Associated symptoms: Other Exacerbated by: Denies Relieved by: Denies Similar symptoms previously: No Recently seen / treated by doctor: No - Related Data Allergies/Adverse Reactions: citalopram hydrobromide [From Celexa] Allergy (Verified 08/21/16 11:33) dextromethorphan HBr [From NyQuil] Allergy (Verified 08/21/16 11:33) doxylamine [From NyQuil] Allergy (Verified 08/21/16 11:33) fluoxetine HCl [From Prozac] Allergy (Verified 08/21/16 11:33) pseudoephedrine HCl [From NyQuil] Allergy (Verified 08/21/16 11:33) trazodone [Trazodone] Allergy (Verified 08/21/16 11:33) antidepressants Adverse Reaction (Uncoded 08/21/16 11:33) Hallucinations Past Medical History - Social History Smoking Status: Current Every Day Smoker Cigarette use (# per day): Yes Chew tobacco use (# tins/day): No Smoking Education Provided: No Frequency of alcohol use: Heavy Drug Abuse: None Family History: Reviewed & Not Pertinent Patient has suicidal ideation: No Patient has homicidal ideation: No - Past Medical History Cardiac Medical History: Reports: Hx Hypertension Denies: Hx Coronary Artery Disease, Hx Heart Attack Pulmonary Medical History: Reports: Hx Asthma, Hx Bronchitis, Hx COPD, Hx Pneumonia Denies: Hx Tuberculosis Neurological Medical History: Reports: Hx Migraine. Denies: Hx Cerebrovascular Accident Renal/ Medical History: Denies: Hx Peritoneal Dialysis Malignancy Medical History: Reports: Hx Cervical Cancer GI Medical History: Reports: Hx Cirrhosis, Hx Gastritis Musculoskeltal Medical History: Denies Hx Arthritis, Reports Hx Muscle Weakness , Reports Hx Musculoskeletal Trauma Psychiatric Medical History: Reports: Hx Anxiety, Hx Bipolar Disorder, Hx Depression Traumatic Medical History: Reports: Hx Fractures Past Surgical History: Reports: Hx Section - x3, Hx Gynecologic Surgery - cervical dysplasia, Hx Tonsillectomy. Denies: Hx Pacemaker - Immunizations Immunizations up to date: Yes Hx Diphtheria, Pertussis, Tetanus Vaccination: Yes Review of Systems - Review of Systems Notes: PHYSICAL EXAMINATION: GENERAL: Appears older than stated age HEAD: Atraumatic, normocephalic. EYES: Pupils equal round and reactive to light, extraocular movements intact, conjunctiva are normal. ENT: Nares patent, oropharynx clear without exudates. Moist mucous membranes. NECK: Normal range of motion, supple without lymphadenopathy LUNGS: Breath sounds clear to auscultation bilaterally and equal. No wheezes rales or rhonchi. HEART: Regular rate and rhythm without murmurs ABDOMEN: Soft, nontender, nondistended abdomen. No guarding, no rebound. No masses appreciated. Female : deferred Musculoskeletal: Normal range of motion, no pitting or edema. No cyanosis. NEUROLOGICAL: Cranial nerves grossly intact. Normal speech, normal gait. Normal sensory, motor exams PSYCH: tangentional thoughts SKIN: Warm, Dry, normal turgor, no rashes or lesions noted. Physical Exam - Vital signs Vitals: Temp Pulse Resp BP Pulse Ox 98.9 F 100 18 144/100 H 100 08/21/16 11:33 08/21/16 11:33 08/21/16 11:33 08/21/16 11:33 08/21/16 11:33 Course - Re-evaluation Re-evalutation: 08/21/16 15:25 Patient has probable encephalopathy secondary to chronic alcohol abuse, no significant signs of infection is noted, imaging noted no abnormality. I will have social media developer determine patient's placement as she is recently out of a care facility 08/21/16 16:30 Daughter states that this is patient's baseline her medications are not given to her, we are still awaiting for placement otherwise discharge paperwork will be prepared patient will be watched in the emergency department After performing a Medical Screening Examination, I estimate there is LOW risk for INTRACRANIAL HEMORRHAGE, ISCHEMIC CVA, MALIGNANT DYSRHYTHMIA, ACUTE CORONARY SYNDROME, MENINGITIS, PULMONARY EMBOLISM, or SEPSIS thus I consider the discharge disposition reasonable. I have reevaluated this patient multiple times and no significant life threatening changes are noted. The patient and I have discussed the diagnosis and risks, and we agree with discharging home with close follow-up with the understanding that symptoms and presentations can change. We also discussed returning to the Emergency Department immediately if new or worsening symptoms occur. We have discussed the symptoms which are most concerning (e.g., changing or worsening pain, weakness, vomiting, fever) that necessitate immediate return. - Vital Signs Vital signs: Temp Pulse Resp BP Pulse Ox 98.9 F 106 H 21 H 132/89 H 96 08/21/16 11:33 08/21/16 12:55 08/21/16 15:01 08/21/16 15:01 08/21/16 15:01 - Laboratory Result Diagrams: 08/21/16 12:06 08/21/16 12:06 Laboratory results interpreted by me: 08/21/16 08/21/16 12:06 13:55 Sodium 131.9 L Chloride 93 L BUN 4 L Albumin 5.1 H Urine Ketones TRACE H Urine Blood SMALL H Ur Leukocyte Esterase LARGE H - Diagnostic Test Radiology reviewed: Image reviewed, Reports reviewed - No acute abnormality - EKG Interpretation by Me EKG shows normal: Sinus rhythm, [place], Intervals, QRS Complexes Discharge - Discharge Clinical Impression: Polysubstance abuse, Alcohol abuse, Noncompliance with medication regimen Condition: Stable Disposition: HOME, SELF-CARE Additional Instructions: Please follow-up with the care plan provided to you by our discharge planning team return immediately if there are any other concerns
[2016-08-21] MEDS: ALPRAZOLAM 0.5 MG TABLET PO PRN (16:48)
[2016-08-22] MEDS: ALPRAZOLAM 0.5 MG TABLET PO PRN ×3 (00:44→20:40)
[2016-08-22] MEDS ORDERED: IBUPROFEN 600 MG TABLET PO ONE (12:05)
[2016-08-22] MEDS ORDERED: NICOTINE 7 MG/24 HR PATCH.TD24 TD ONE (14:57)
[2016-08-22] MEDS ORDERED: (PENDING PHARMACY ID) (Hydroxyzine Hcl [Hydroxyzine Hcl] 25 MG) PO PRN (14:59)
[2016-08-22] MEDS ORDERED: HYDROXYZINE PAMOATE 25 MG CAPSULE PO PRN (15:09)
[2016-08-22] MEDS ORDERED: (PENDING PHARMACY ID) (Duloxetine Hcl [Duloxetine Hcl] 60 MG) PO SCH (18:00)
[2016-08-22] MEDS: DULOXETINE HCL 30 MG CAPSULE.DR PO SCH (18:24)
[2016-08-22] MEDS: MAGNESIUM OXIDE 400 MG TABLET PO SCH (18:25)
[2016-08-23] MEDS ORDERED: (PENDING PHARMACY ID) (Lamotrigine [Lamictal] 150 MG) PO SCH (10:00)
[2016-08-23] MEDS ORDERED: LISINOPRIL 5 MG TABLET PO SCH (10:00)
[2016-08-23] MEDS ORDERED: CYANOCOBALAMIN (VITAMIN B-12) 1,000 MCG TABLET PO SCH (10:00)
[2016-08-23] MEDS ORDERED: LAMOTRIGINE 100 MG TABLET PO SCH (10:00)
[2016-08-23] MEDS ORDERED: IBUPROFEN 600 MG TABLET PO PRN (10:32)
[2016-08-23] MEDS: DULOXETINE HCL 30 MG CAPSULE.DR PO SCH (10:37)
[2016-08-23] MEDS: MAGNESIUM OXIDE 400 MG TABLET PO SCH (10:39)
[2016-08-23 14:05] VITALS: BP 146/85
== END 2016-08-23 14:02 | disposition home or self-care (01) ==
LOC: ER 11:25
DX: F10.10 Alcohol abuse, uncomplicated (principal); F19.10 Other psychoactive substance abuse, uncomplicated; R41.82 Altered mental status, unspecified; R41.0 Disorientation, unspecified; F17.210 Nicotine dependence, cigarettes, uncomplicated; Z91.14 Patient's other noncompliance with medication regimen
CPT/HCPCS: 93005; 36415; 85025; 80053; 81001; 71020; 73030; 70450; 93010; A9270 ×11; J3490; 99285

== ENCOUNTER 2016-12-20 15:53 | Emergency (ER) | payer MEDICARE, MEDICAID ==
--- NOTE | 2016-12-20 16:21 | ER Document Report ---
HPI - HPI Patient complains to provider of: Leg cramps Onset: Other - 3 months Onset/Duration: Persistent Quality of pain: Cramping Pain Level: 3 Context: Patient presents complaining of bilateral lower extremity cramping off and on for the past 3 months. Patient states that she feels like the cramping was worse today. Patient does report occasional nausea. Patient reports urinary frequency and states that she knows she has a UTI but she plans to see her primary doctor in 4 days for this problem. Patient denies any fever, vomiting or diarrhea. Associated Symptoms: Other - Dysuria, leg cramps. denies: Chest pain, Fever, Vomiting Exacerbated by: Denies Relieved by: Denies Similar symptoms previously: Yes Recently seen / treated by doctor: No - ROS ROS below otherwise negative: Yes Systems Reviewed and Negative: Yes All other systems reviewed and negative - CONSTITUTIONAL Constitutional: DENIES: Fever, Chills - NEURO Neurology: DENIES: Weakness - RESPIRATORY Respiratory: DENIES: Coughing - GASTROINTESTINAL Gastrointestinal: REPORTS: Nausea. DENIES: Abdominal Pain, Patient vomiting, Diarrhea - URINARY Urinary: REPORTS: Dysuria - REPRODUCTIVE Reproductive: DENIES: : - MUSCULOSKELETAL Musculoskeletal: REPORTS: Back Pain. DENIES: Extremity pain, Neck Pain - DERM Skin Color: Normal Skin Problems: None Past Medical History - General Information source: Patient - Social History Smoking Status: Current Every Day Smoker Frequency of alcohol use: Heavy - Daily alcohol use Drug Abuse: None Occupation: None Lives with: Friend Family History: Reviewed & Not Pertinent - Past Medical History Cardiac Medical History: Reports: Hx Hypertension Denies: Hx Coronary Artery Disease, Hx Heart Attack Pulmonary Medical History: Reports: Hx Asthma, Hx Bronchitis, Hx COPD, Hx Pneumonia Denies: Hx Tuberculosis Neurological Medical History: Reports: Hx Migraine. Denies: Hx Cerebrovascular Accident Renal/ Medical History: Denies: Hx Peritoneal Dialysis Malignancy Medical History: Reports: Hx Cervical Cancer GI Medical History: Reports: Hx Cirrhosis, Hx Gastritis Musculoskeltal Medical History: Denies Hx Arthritis, Reports Hx Muscle Weakness , Reports Hx Musculoskeletal Trauma Psychiatric Medical History: Reports: Hx Anxiety, Hx Bipolar Disorder, Hx Depression Traumatic Medical History: Reports: Hx Fractures Past Surgical History: Reports: Hx Section - x3, Hx Gynecologic Surgery - cervical dysplasia, Hx Tonsillectomy. Denies: Hx Pacemaker - Immunizations Immunizations up to date: Yes Hx Diphtheria, Pertussis, Tetanus Vaccination: Yes Vertical Provider Document - CONSTITUTIONAL Agree With Documented VS: Yes Exam Limitations: No Limitations General Appearance: WD/WN, No Apparent Distress - INFECTION CONTROL TRAVEL OUTSIDE OF THE [place] IN LAST 30 DAYS: No - HEENT HEENT: Atraumatic, Normocephalic - NECK Neck: Normal Inspection, Supple. negative: Lymphadenopathy-Left, Lymphadenopathy-Right - RESPIRATORY Respiratory: No Respiratory Distress, Wheezing - scattered - CARDIOVASCULAR Cardiovascular: Regular Rate, Regular Rhythm, No Murmur - GI/ABDOMEN Gastrointestinal: Abdomen Soft, Abdomen Non-Tender Notes: caput medusa - BACK Back: CVA Tenderness-Right, CVA Tenderness-Left - MUSCULOSKELETAL/EXTREMETIES Musculoskeletal/Extremeties: MAEW, FROM, No Edema - NEURO Level of Consciousness: Awake, Alert, Appropriate Motor/Sensory: No Motor Deficit - DERM Integumentary: Warm, Dry, No Rash Course - Re-evaluation Re-evalutation: 12/20/16 17:[address] Rome regarding patient presentation, recommends hydration, EKG pending. 12/20/16 18:08 Dr. Rome reviewed the patient's EKG. Patient refuses any IV fluids at this time. Patient states she will just drink her fluids at this time. Patient advised of laboratory results. Patient encouraged to keep her appointment with her doctor on Friday and have him recheck her urine as well as recheck her electrolytes. Discussed worsening symptoms that patient should return immediately for. Patient verbalized understanding and agrees with plan of care. 12/20/16 18:32 Patient refusing any Rocephin injection here at this time. Patient advised that this will help treat her urinary tract infection. Patient adamant that she does not want any injectable antibiotics at this time he prefers to only take oral tablets. - Laboratory Result Diagrams: 12/20/16 16:42 12/20/16 16:42 Laboratory results interpreted by me: 12/20/16 18:08 Labs- Entire Visit 12/20/16 12/20/16 12/20/16 16:42 16:42 16:42 WBC 7.2 RBC 4.15 Hgb 14.3 Hct 40.6 MCV 98 H MCH 34.4 H MCHC 35.1 RDW 15.0 H Plt Count 242 Seg Neutrophils % 60.7 Lymphocytes % 23.7 Monocytes % 15.0 H Eosinophils % 0.3 Basophils % 0.3 Absolute Neutrophils 4.4 Absolute Lymphocytes 1.7 Absolute Monocytes 1.1 Absolute Eosinophils 0.0 Absolute Basophils 0.0 Sodium 135.5 L Potassium 5.4 H Chloride 97 L Carbon Dioxide 28 Anion Gap 11 BUN 14 Creatinine 0.64 Est GFR ( Amer) > 60 Est GFR (Non-Af Amer) > 60 Glucose 116 H Calcium 10.3 H Magnesium 1.9 Total Bilirubin 0.4 Direct Bilirubin 0.4 Indirect Bilirubin Not Reportable Neonat Total Bilirubin Not Reportable AST 17 ALT 24 Alkaline Phosphatase 79 Ammonia < 8.7 L Total Protein 7.1 Albumin 4.4 Urine Color Urine Appearance Urine pH Ur Specific [place] Urine Protein Urine Glucose (UA) Urine Ketones Urine Blood Urine Nitrite Urine Bilirubin Urine Urobilinogen Ur Leukocyte Esterase Urine WBC (Auto) Urine RBC (Auto) Urine Bacteria (Auto) Squamous Epi Cells Auto Urine Mucus (Auto) Urine Ascorbic Acid 12/20/16 16:42 WBC RBC Hgb Hct MCV MCH MCHC RDW Plt Count Seg Neutrophils % Lymphocytes % Monocytes % Eosinophils % Basophils % Absolute Neutrophils Absolute Lymphocytes Absolute Monocytes Absolute Eosinophils Absolute Basophils Sodium Potassium Chloride Carbon Dioxide Anion Gap BUN Creatinine Est GFR ( Amer) Est GFR (Non-Af Amer) Glucose Calcium Magnesium Total Bilirubin Direct Bilirubin Indirect Bilirubin Neonat Total Bilirubin AST ALT Alkaline Phosphatase Ammonia Total Protein Albumin Urine Color YELLOW Urine Appearance CLOUDY Urine pH 5.0 Ur Specific [place] 1.016 Urine Protein NEGATIVE Urine Glucose (UA) NEGATIVE Urine Ketones NEGATIVE Urine Blood NEGATIVE Urine Nitrite NEGATIVE Urine Bilirubin NEGATIVE Urine Urobilinogen 2.0 H Ur Leukocyte Esterase LARGE H Urine WBC (Auto) 138 Urine RBC (Auto) 70 Urine Bacteria (Auto) TRACE Squamous Epi Cells Auto 4 Urine Mucus (Auto) RARE Urine Ascorbic Acid NEGATIVE Discharge - Discharge Clinical Impression: Muscle cramps, Hyperkalemia UTI (urinary tract infection) Qualifiers: Urinary tract infection type: site unspecified Hematuria presence: without hematuria Qualified Code(s): N39.0 - Urinary tract infection, site not specified Condition: Stable Disposition: HOME, SELF-CARE Instructions: Leg Cramps ([facility]), Rocephin ([facility]), Urinary Tract Infection ([facility]) Additional Instructions: Return immediately for any new or worsening symptoms Followup with your primary care provider, call tomorrow to make a followup appointment Keep your appointment with your primary doctor on Friday as planned. Have them recheck your potassium level as it was elevated today at 5.4, have them also recheck your urinalysis as you did have a UTI today. Urine culture is pending at this time. We will call you if you need any different antibiotic treatment. Prescriptions: Cefdinir 300 mg PO BID #14 capsule Referrals: THIEN DUCKWORTH MD [Primary Care Provider] - 12/24/16
[2016-12-20 16:25] VITALS: BP 117/74
[2016-12-20 17:00] LABS: ABSOLUTE LYMPHOCYTES (AUTO) 1.7 10^3/uL (0.5-4.7); ABSOLUTE MONOCYTES (AUTO) 1.1 10^3/uL (0.1-1.4); ABSOLUTE NEUT (AUTO) 4.4 10^3/uL (1.7-8.2); BASOPHILS % (AUTO) 0.3 % (0-2); EOSINOPHILS % (AUTO) 0.3 % (0-6); HEMATOCRIT 40.6 % (36.0-47.0); HEMOGLOBIN 14.3 g/dL (12.0-15.5); HGB HCT DIFFERENCE 2.3; LYMPHOCYTES % (AUTO) 23.7 % (13-45); MEAN CORPUSCULAR HEMOGLOBIN 34.4 pg (27.0-33.4); MEAN CORPUSCULAR HGB CONC 35.1 g/dL (32.0-36.0); MEAN CORPUSCULAR VOLUME 98 fl (80-97); RED BLOOD COUNT 4.15 10^6/uL (3.72-5.28); SEGMENTED NEUTROPHILS % (AUTO) 60.7 % (42-78); WHITE BLOOD COUNT 7.2 10^3/uL (4.0-10.5)
[2016-12-20 17:21] LABS: ALANINE AMINOTRANSFERASE 24 U/L (9-52); ALBUMIN 4.4 g/dL (3.5-5.0); ALKALINE PHOSPHATASE 79 U/L (38-126); ANION GAP 11 (5-19); ASPARTATE AMINO TRANSFERASE 17 U/L (14-36); BILIRUBIN,DIRECT 0.4 mg/dL (0.0-0.4); BILIRUBIN,TOTAL 0.4 mg/dL (0.2-1.3); BLOOD UREA NITROGEN 14 mg/dL (7-20); CALCIUM 10.3 mg/dL (8.4-10.2); CARBON DIOXIDE 28 mmol/L (22-30); CHLORIDE 97 mmol/L (98-107); CREATININE RESULT 0.64 mg/dL (0.52-1.25); GLUCOSE 116 mg/dL (75-110); MAGNESIUM 1.9 mg/dL (1.6-2.3); POTASSIUM 5.4 mmol/L (3.6-5.0); SODIUM 135.5 mmol/L (137-145); TOTAL PROTEIN 7.1 g/dL (6.3-8.2)
[2016-12-20] MEDS ORDERED: NORMAL SALINE 1000 ML 1,000 ML IV ONE ×2 (17:26→17:33)
[2016-12-20 17:48] LABS: APPEARANCE,URINE CLOUDY; BILIRUBIN,URINE NEGATIVE (NEGATIVE); GLUCOSE, URINE NEGATIVE (NEGATIVE); KETONES,URINE NEGATIVE (NEGATIVE); LEUKOCYTE ESTERASE,URINE LARGE (NEGATIVE); NITRITE,URINE NEGATIVE (NEGATIVE); PROTEIN,URINE NEGATIVE (NEGATIVE); URINE SPECIFIC GRAVITY 1.016
[2016-12-20] MEDS ORDERED: CEFTRIAXONE INJ 1000 MG VIAL IM ONE (17:51)
[2016-12-20] MEDS ORDERED: IPRATROPIUM/ALBUTEROL 0.5-2.5 MG/3 ML AMPUL NEB ONE (17:51)
[2016-12-20] MEDS ORDERED: LIDOCAINE 1% INJ-PF (10 MG/ML) 30 ML SDV INJ ONE (17:51)
[2016-12-20] MEDS ORDERED: SULFAMETHOXAZOLE/TRIMETHOPRIM 800-160 MG TABLET PO ONE (18:07)
--- NOTE | 2016-12-20 19:27 | EKG REPORT ---
SEVERITY:- ABNORMAL ECG - SINUS RHYTHM PROBABLE LEFT ATRIAL ABNORMALITY NONSPECIFIC T ABNORMALITIES, ANT-LAT LEADS : Confirmed by: El Werner MD 20-Dec-2016 19:27:13
== END 2016-12-20 18:53 | disposition home or self-care (01) ==
LOC: ER 15:53
DX: E87.5 Hyperkalemia (principal); N39.0 Urinary tract infection, site not specified; R25.2 Cramp and spasm; R11.0 Nausea; M54.9 Dorsalgia, unspecified; I10 Essential (primary) hypertension; J44.9 Chronic obstructive pulmonary disease, unspecified; F17.200 Nicotine dependence, unspecified, uncomplicated; Z85.41 Personal history of malignant neoplasm of cervix uteri
CPT/HCPCS: 93005; 94640; 99284; 36415; 87086; 82140; 83735; 85025; 80053; 81001; 93010; A9270; J7620

== ENCOUNTER → 2016-12-31 | Outpatient (CLI) | payer MEDICARE, MEDICAID ==
--- NOTE | 2016-12-31 17:01 | XCELERA REPORT ---
[address] [address] Lower Extremity Arterial Evaluation Name: SIMON WILLIAM Age: 61 yrs Gender: Female : 1955 Patient Status: Outpatient Patient Location: Study Date: 12/31/2016 03:44 PM Procedure: Ankle brachial indicies performed. Reason For Study: CRACHARISSE AND BEENA R25.2 Ordering Physician: THIEN DUCKWORTH Performed By: Cuco Norman Right Side Arterial Evaluation DOMINIC :0.91. Left Side Arterial Evaluation DOMINIC :0.66.. Interpretation Summary Ankle Brachial indices , normal on right, abnormally low on left. Moderate obstruction predicted on left. An arterial duplex study may show more detail. : THIEN DUCKWORTH > Melvin Sanderson
== END ==
LOC: SP 13:12
PROVIDERS: ATTEND Family Medicine
DX: R09.89 Other specified symptoms and signs involving the circulatory and respiratory systems (principal)
CPT/HCPCS: 93922

== ENCOUNTER 2017-05-08 15:02 | Emergency (ER) | payer MEDICARE, MEDICAID ==
[2017-05-08] MEDS ORDERED: KETOROLAC TROMETHAMINE 10 MG TABLET PO ONE (17:43)
--- NOTE | 2017-05-08 17:45 | ER Document Report ---
HPI - HPI Pain Level: 0 Notes: Patient is a 62-year-old female with a history of hypertension and mental health disorders who presents to the ED with 2 complaints. Patient first complains of left mid lower back pain 1-2 weeks after she reached up for something on the top shelf. Patient states that she felt a pull in that area and has had some discomfort in that area since then. Patient has not had any surgeries or injections into her back. She denies any IV drug use. Denies any diabetes or other immunocompromised conditions. She has never had any spinal abscesses in the past nor has she had any recent illness. Patient also complains of puffiness infraorbital bilateral without any pain or discomfort. Patient states that her eyes do not bother her either and she has been taking Benadryl with minimal resolution. Patient has not had any history of hypothyroidism, loss of hair, fatigue, cold sensitivity. Patient is otherwise eating and drinking without any difficulties. She is urinating normally and having normal bowel movements. Denies any headache, fever, head injury, neck pain, changes in vision/speech/mentation/hearing, URI, sore throat, chest pain, palpitations, syncope, cough, shortness of breath, wheeze, dyspnea, abdominal pain, nausea/vomiting/diarrhea, urinary retention, dysuria, hematuria, loss of control of bowel or bladder, numbness/tingling, saddle anesthesia, muscle paralysis/weakness, or rash. Patient states that when she performed the visual acuity test in the ED she is using an old prescription glasses that she could not find her updated once, but otherwise states that her vision has not been changing. Patient has no sensation of foreign body to her eyes and no redness associated or discharge. - ROS Systems Reviewed and Negative: Yes All other systems reviewed and negative - REPRODUCTIVE Reproductive: DENIES: : Past Medical History - Social History Smoking Status: Current Every Day Smoker Family History: Reviewed & Not Pertinent - Past Medical History Cardiac Medical History: Reports: Hx Hypertension Denies: Hx Coronary Artery Disease, Hx Heart Attack Pulmonary Medical History: Reports: Hx Asthma, Hx Bronchitis, Hx COPD, Hx Pneumonia Denies: Hx Tuberculosis Neurological Medical History: Reports: Hx Migraine. Denies: Hx Cerebrovascular Accident Renal/ Medical History: Denies: Hx Peritoneal Dialysis Malignancy Medical History: Reports: Hx Cervical Cancer GI Medical History: Reports: Hx Cirrhosis, Hx Gastritis Musculoskeltal Medical History: Denies Hx Arthritis, Reports Hx Muscle Weakness , Reports Hx Musculoskeletal Trauma Psychiatric Medical History: Reports: Hx Anxiety, Hx Bipolar Disorder, Hx Depression Traumatic Medical History: Reports: Hx Fractures Past Surgical History: Reports: Hx Section - x3, Hx Gynecologic Surgery - cervical dysplasia, Hx Tonsillectomy. Denies: Hx Pacemaker - Immunizations Immunizations up to date: Yes Hx Diphtheria, Pertussis, Tetanus Vaccination: Yes Vertical Provider Document - CONSTITUTIONAL Agree With Documented VS: Yes Notes: PHYSICAL EXAMINATION: GENERAL: Well-appearing, well-nourished and in no acute distress. A&Ox4 HEAD: Atraumatic, normocephalic. EYES: Pupils equal round and reactive to light, extraocular movements intact, sclera anicteric, conjunctiva unremarkable b/l. no erythema or discharge. Non- tender to palp of the globe and eye itself. No surrounding erythema. + mild edema to the infraorbit b/l. No flourescein warranted at this time. ENT: EAC clear b/l. TM's intact b/l without erythema, fluid, or perforation. Nares patent and without discharge. oropharynx clear without exudates. No tonsilar hypertrophy or erythema. Moist mucous membranes. No sinus tenderness. Uvula midline. No palatine shift. No airway compromise. No drooling or hoarseness. LUNGS: Breath sounds clear to auscultation bilaterally and equal. No wheezes rales or rhonchi. HEART: Regular rate and rhythm without murmurs, rubs, gallops. ABDOMEN: Soft, nontender, nondistended abdomen. No guarding, no rebound. No masses appreciated. Normal bowel sounds present. No CVA tenderness bilaterally. No pulsatile mass Musculoskeletal: LE's b/l: FROM to passive/active. Strength 5+/5. No deficits noted. No bony tenderness of extremities. Back: FROM to passive/active. Strength 5+/5. No vertebral point tenderness, stepoffs, or deformities. No other bony tenderness, erythema, swelling, or ecchymosis. SLR negative b/l. + mild tenderness to the L-paraspinal mm b/l. Mild spasming. No SI jt tenderness. No foot drop Extremities: No cyanosis, clubbing, or edema b/l. Peripheral pulses 2+. Capillary refill less than 2 seconds. NEUROLOGICAL: Normal speech, ataxic gait. Normal sensory, motor exams. Reflexes 2+ b/l. PSYCH: Normal mood, normal affect. SKIN: Warm, Dry, normal turgor, no rashes or lesions noted. - INFECTION CONTROL TRAVEL OUTSIDE OF THE [place] IN LAST 30 DAYS: No - RESPIRATORY O2 Sat by Pulse Oximetry: 95 Course - Re-evaluation Re-evalutation: 05/08/17 17:49 Patient is an afebrile, well-hydrated, 62-year-old female who presents to the ED with infraorbital edema bilaterally, suspect benign, as well as low back pain , suspect muscle strain. Her condition does not appear to be infectious at this time. Vitals are stable. PE is otherwise unremarkable for any focal neurological deficits. Patient is not showing any signs or symptoms of severe hypothyroidism. Patient is tolerating p.o. without difficulties. Patient is ambulating around the room without any difficulties. Patient is declining any injections at this time. No labs or imaging warranted at this time based on H& P. Low suspicion for any retained corneal or lid foreign body, deep space infection including orbital cellulitis/abscess, acute glaucoma, penetrating globe injury, retinal detachment, meningitis, sepsis, fracture, compartment syndrome, expanding/ruptured AAA, cauda equina syndrome, epidural mass lesion/ abscess, herniated disc causing severe spinal stenosis, or other systemic infection at this time. Patient is aware that her condition can change from initial presentation and that she needs monitor symptoms closely for any acute changes. Toradol 10 mg given p.o. today. I will send her home with a prescription for a steroid taper dose. Recommend conservative measures for symptoms. Keep consult with your PCM on Friday. Schedule an appoint with the distribution coordinator for further evaluation and management. Consider consult with orthopedics and physical therapy. Return to the ED with any worsening/ concerning symptoms otherwise as reviewed discharge. Patient is in agreement. Reviewed eye case with Dr. Goodwin who is in agreement with disposition. - Vital Signs Vital signs: Temp Pulse Resp BP Pulse Ox 98.9 F 125 H 16 127/79 H 95 05/08/17 15:14 05/08/17 15:14 05/08/17 15:14 05/08/17 15:14 05/08/17 15:14 Discharge - Discharge Clinical Impression: Periorbital edema Low back pain Qualifiers: Chronicity: acute Back pain laterality: left Sciatica presence: without sciatica Qualified Code(s): M54.5 - Low back pain Condition: Stable Disposition: HOME, SELF-CARE Additional Instructions: Rest, Ice, Compression, Elevation Tylenol/ibuprofen as needed Light stretches daily Strength exercises as able Moist heat and massage may help F/u with your PCP in 3-5 days for a recheck Schedule an appointment with Ophthalmology and keep appointment with PCM on friday. Consider consult(s) with Orthopedics/physical therapy for ongoing/worsening symptoms Return to the ED with any worsening symptoms and/or development of fever, headache, chest pain, palpitations, syncope, shortness of breath, trouble breathing, abdominal pain, n/v/d, blood in stool/urine, loss of control of bowel /bladder, urinary retention, muscle weakness/paralysis, saddle anesthesia, numbness/tingling, or other worsening symptoms that are concerning to you. Prescriptions: Prednisone [Deltasone 10 mg Tablet] 10 mg PO ASDIR PRN #21 tablet PRN Reason: Forms: Elevated Blood Pressure, Smoking Cessation Education Referrals: THIEN DUCKWORTH MD [Primary Care Provider] - 05/13/17 PRECIOUS GUARDADO MD [ACTIVE STAFF] - Follow up in 3-5 days [facility] [Provider Group] - Follow up as needed
[2017-05-08 18:17] VITALS: BP 128/99
[2017-05-08] MEDS ORDERED: KETOROLAC TROMETHAMINE INJ/PF 30 MG/1 ML SDV IM ONE (18:17)
== END 2017-05-08 18:36 | disposition home or self-care (01) ==
LOC: ER 15:02
DX: M54.5 Low back pain (principal); R60.0 Localized edema; R25.2 Cramp and spasm; I10 Essential (primary) hypertension; F17.200 Nicotine dependence, unspecified, uncomplicated; J44.9 Chronic obstructive pulmonary disease, unspecified; Z85.41 Personal history of malignant neoplasm of cervix uteri
CPT/HCPCS: 99283; 96372; J1885

== ENCOUNTER 2018-01-13 19:03 | Emergency (ER) | payer MEDICARE, MEDICAID ==
[2018-01-13] MEDS ORDERED: NORMAL SALINE 1000 ML 1,000 ML IV ONE (20:03)
--- NOTE | 2018-01-13 20:03 | ER Document Report ---
ED Dizziness/Weakness - General Chief Complaint: Weakness Stated Complaint: WEAKNESS Time Seen by Provider: 01/13/18 19:24 Notes: 8-year-old female to the emergency department complaining of not feeling well. Patient states that she has not felt well for several months. Shortness of breath. No significant chest pain today but just feels weak and dizzy. Patient smokes pack a day. Takes a little bump off the methamphetamine pipe every now and then. Denies any other major symptoms at this time other than being tired and feeling weak. TRAVEL OUTSIDE OF THE [place] IN LAST 30 DAYS: No - HPI Patient complains to provider of: Dizziness, Weakness Onset: Last week - Related Data Allergies/Adverse Reactions: citalopram hydrobromide [From Celexa] Allergy (Verified 05/08/17 15:04) dextromethorphan HBr [From NyQuil] Allergy (Verified 05/08/17 15:04) doxylamine [From NyQuil] Allergy (Verified 05/08/17 15:04) fluoxetine HCl [From Prozac] Allergy (Verified 05/08/17 15:04) pseudoephedrine HCl [From NyQuil] Allergy (Verified 05/08/17 15:04) trazodone [Trazodone] Allergy (Verified 05/08/17 15:04) antidepressants Adverse Reaction (Uncoded 05/08/17 15:04) Hallucinations Past Medical History - General Information source: Patient - Social History Smoking Status: Current Every Day Smoker Cigarette use (# per day): Yes Frequency of alcohol use: Occasional Drug Abuse: Methamphetamine Lives with: Family Family History: Reviewed & Not Pertinent Patient has suicidal ideation: No Patient has homicidal ideation: No - Past Medical History Cardiac Medical History: Reports: Hx Hypertension Denies: Hx Coronary Artery Disease, Hx Heart Attack Pulmonary Medical History: Reports: Hx Asthma, Hx Bronchitis, Hx COPD, Hx Pneumonia Denies: Hx Tuberculosis Neurological Medical History: Reports: Hx Migraine. Denies: Hx Cerebrovascular Accident Renal/ Medical History: Denies: Hx Peritoneal Dialysis Malignancy Medical History: Reports: Hx Cervical Cancer GI Medical History: Reports: Hx Cirrhosis, Hx Gastritis Musculoskeletal Medical History: Denies Hx Arthritis, Reports Hx Muscle Weakness , Reports Hx Musculoskeletal Trauma Psychiatric Medical History: Reports: Hx Anxiety, Hx Bipolar Disorder, Hx Depression Traumatic Medical History: Reports: Hx Fractures Past Surgical History: Reports: Hx Section - x3, Hx Gynecologic Surgery - cervical dysplasia, Hx Tonsillectomy. Denies: Hx Pacemaker - Immunizations Immunizations up to date: Yes Hx Diphtheria, Pertussis, Tetanus Vaccination: Yes Review of Systems - Review of Systems Notes: Constitutional: denies: Chills, Diaphoresis, Fever, patient complains of being weak and tired EENT: denies: Eye discharge, Blurred vision, Tearing, Double vision, Nose congestion, Nose discharge, Throat swelling, Mouth pain Cardiovascular: denies: Palpitations, Heart racing, Orthopnea, Dyspnea, Chest pain Respiratory:. Patient complains of being tired, shortness of breath, cough, dyspnea on exertion Gastrointestinal: denies: Abdominal pain, Diarrhea, Nausea, Vomiting, Black stools, bright red blood in stool Genitourinary: denies: Burning, Dysuria, Discharge, Frequency, Flank pain, Hematuria Musculoskeletal: denies: Joint pain, Joint swelling, Muscle pain, Muscle stiffness, back pain Hematologic/Lymphatic: denies: Anemia, Easy bleeding, Easy bruising, Blood clots Neurological/Psychological: denies: Confusion, Dementia, Depression, Loss of consciousness Skin: No lesions, no masses, no skin breakdown, no abscesses Physical Exam - Vital signs Vitals: Temp Resp BP Pulse Ox 98.2 F 18 94/58 L 98 01/13/18 19:14 01/13/18 19:14 01/13/18 19:14 01/13/18 19:14 Interpretation: Tachycardic, Tachypneic - General General appearance: Appears well, Alert - HEENT Head: Normocephalic, Atraumatic Eyes: Normal Pupils: PERRL - Respiratory Respiratory status: No respiratory distress Chest status: Nontender Breath sounds: Normal Chest palpation: Normal - Cardiovascular Rhythm: Tachycardia Heart sounds: Normal auscultation Murmur: No - Abdominal Inspection: Normal Distension: No distension Bowel sounds: Normal Tenderness: Nontender Organomegaly: No organomegaly - Back Back: Normal, Nontender - Extremities General upper extremity: Normal inspection, Nontender, Normal color, Normal ROM , Normal temperature General lower extremity: Normal inspection, Nontender, Normal color, Normal ROM , Normal temperature, Normal weight bearing. No: Cristiano's sign - Neurological Neuro grossly intact: Yes Cognition: Normal Orientation: AAOx4 Jose Coma Scale Eye Opening: Spontaneous Jose Coma Scale Verbal: Oriented [place] Coma Scale Motor: Obeys Commands [place] Coma Scale Total: 15 Speech: Normal Motor strength normal: LUE, RUE, LLE, RLE Sensory: Normal - Psychological Associated symptoms: Normal affect, Normal mood - Skin Skin Temperature: Warm Skin Moisture: Dry Skin Color: Normal Course - Re-evaluation Re-evalutation: 01/13/18 21:02 Patient has slightly elevated WBC count with grossly elevated cardiac troponin and CK-MB. Patient obviously having some sort of myocardial ischemic episode. Patient is a poor historian and very poor medical health with admitted drug use and heavy smoking. Does not have a regular doctor. Will attempt to transfer her shortly. 01/13/18 21:03 Laboratory 01/13/18 01/13/18 01/13/18 20:00 20:00 20:00 WBC 14.1 H RBC 4.79 Hgb 16.1 H Hct 46.4 MCV 97 MCH 33.6 H MCHC 34.7 RDW 14.0 Plt Count 242 Seg Neutrophils % 61.9 Lymphocytes % 22.5 Monocytes % 14.1 H Eosinophils % 0.6 Basophils % 0.9 Absolute Neutrophils 8.7 H Absolute Lymphocytes 3.2 Absolute Monocytes 2.0 H Absolute Eosinophils 0.1 Absolute Basophils 0.1 Sodium 131.9 L Potassium 4.9 Chloride 93 L Carbon Dioxide 25 Anion Gap 14 BUN 7 Creatinine 0.68 Est GFR ( Amer) > 60 Est GFR (Non-Af Amer) > 60 Glucose 121 H Calcium 10.6 H Total Bilirubin 0.4 Direct Bilirubin 0.3 Neonat Total Bilirubin Not Reportable Neonat Direct Bilirubin Not Reportable Neonat Indirect Bili Not Reportable AST 33 ALT 23 Alkaline Phosphatase 68 Creatine Kinase 124 CK-MB (CK-2) 8.78 H Troponin I 1.950 Total Protein 7.4 Albumin 4.7 Serum Alcohol 34 Chest X-Ray 01/13/18 20:02 IMPRESSION: NO ACUTE RADIOGRAPHIC FINDING IN THE CHEST. 01/13/18 22:07 The patient has been accepted as a transfer to [facility] with cardiology team, Dr. Goss however they anticipate no bed tonight. I am trying to make a few other calls to see if I can find patient bed somewhere else sooner rather than later. Putting on a heparin drip at this time. Pressure is coming back up. Heart rate still little elevated so we will probably give her another dose of metoprolol. 01/13/18 23:15 Patient tolerated the heparin and the beta-blockers fine. Heart rate currently at 103 blood pressure is 102/75. Transport is available. Will transfer at this time. Patient remained stable for transport at this time. - Vital Signs Vital signs: Temp Pulse Resp BP Pulse Ox 98.2 F 27 H 100/71 96 01/13/18 19:14 01/13/18 22:41 01/13/18 22:41 01/13/18 22:41 - Laboratory Result Diagrams: 01/13/18 20:00 01/13/18 20:00 Laboratory results interpreted by me: 01/13/18 01/13/18 01/13/18 20:00 20:00 20:00 WBC 14.1 H Hgb 16.1 H MCH 33.6 H Monocytes % 14.1 H Absolute Neutrophils 8.7 H Absolute Monocytes 2.0 H APTT Sodium 131.9 L Chloride 93 L Glucose 121 H Calcium 10.6 H CK-MB (CK-2) 8.78 H Urine Ketones Urine Urobilinogen Ur Leukocyte Esterase 01/13/18 01/13/18 20:00 20:57 WBC Hgb MCH Monocytes % Absolute Neutrophils Absolute Monocytes APTT 37.2 H Sodium Chloride Glucose Calcium CK-MB (CK-2) Urine Ketones TRACE H Urine Urobilinogen 2.0 H Ur Leukocyte Esterase LARGE H - EKG Interpretation by Me EKG shows normal: [place], Intervals, QRS Complexes, ST-T Waves Rate: Tachycardia Critical Care Note - Critical Care Note Total time excluding time spent on procedures (mins): 45 Comments: Elevated cardiac troponin, hypotension, tachycardia, consultation with specialist, coordination of transfer of care. Discharge - Discharge Clinical Impression: Cardiac enzymes elevated Hypotension Qualifiers: Hypotension type: unspecified hypotension type Qualified Code(s): I95.9 - Hypotension, unspecified Condition: Fair Disposition: [facility] Referrals: THIEN DUCKWORTH MD [Primary Care Provider] - Follow up as needed
[2018-01-13 20:15] LABS: ABSOLUTE BASOPHILS # (AUTO) 0.1 10^3/uL (0.0-0.2); ABSOLUTE EOSINOPHILS # (AUTO) 0.1 10^3/uL (0.0-0.6); ABSOLUTE LYMPHOCYTES (AUTO) 3.2 10^3/uL (0.5-4.7); ABSOLUTE NEUT (AUTO) 8.7 10^3/uL (1.7-8.2); BASOPHILS % (AUTO) 0.9 % (0-2); EOSINOPHILS % (AUTO) 0.6 % (0-6); HEMATOCRIT 46.4 % (36.0-47.0); HEMOGLOBIN 16.1 g/dL (12.0-15.5); LYMPHOCYTES % (AUTO) 22.5 % (13-45); MEAN CORPUSCULAR HEMOGLOBIN 33.6 pg (27.0-33.4); MEAN CORPUSCULAR HGB CONC 34.7 g/dL (32.0-36.0); MEAN CORPUSCULAR VOLUME 97 fl (80-97); MONOCYTES % (AUTO) 14.1 % (3-13); PLATELET COUNT 242 10^3/uL (150-450); RED BLOOD COUNT 4.79 10^6/uL (3.72-5.28); SEGMENTED NEUTROPHILS % (AUTO) 61.9 % (42-78); TOTAL CELLS COUNTED % (AUTO) 100 %; WHITE BLOOD COUNT 14.1 10^3/uL (4.0-10.5)
[2018-01-13 20:34] LABS: ALANINE AMINOTRANSFERASE 23 U/L (9-52); ALBUMIN 4.7 g/dL (3.5-5.0); ALCOHOL 34 mg/dL (NONE DETECTED); ALKALINE PHOSPHATASE 68 U/L (38-126); ANION GAP 14 (5-19); ASPARTATE AMINO TRANSFERASE 33 U/L (14-36); BILIRUBIN,DIRECT 0.3 mg/dL (0.0-0.4); BILIRUBIN,TOTAL 0.4 mg/dL (0.2-1.3); BLOOD UREA NITROGEN 7 mg/dL (7-20); CALCIUM 10.6 mg/dL (8.4-10.2); CARBON DIOXIDE 25 mmol/L (22-30); CHLORIDE 93 mmol/L (98-107); CREATINE KINASE 124 U/L (30-135); GLUCOSE 121 mg/dL (75-110); POTASSIUM 4.9 mmol/L (3.6-5.0); SODIUM 131.9 mmol/L (137-145); TOTAL PROTEIN 7.4 g/dL (6.3-8.2)
[2018-01-13 20:45] LABS: CREATINE KINASE MB 8.78 ng/mL (<4.55)
--- NOTE | 2018-01-13 20:46 | RADIOLOGY REPORT (SQ) ---
EXAM DESCRIPTION: CHEST SINGLE VIEW COMPLETED DATE/TIME: 01/13/2018 8:20 pm REASON FOR STUDY: sob COMPARISON: 08/21/2016 EXAM PARAMETERS: NUMBER OF VIEWS: One view. TECHNIQUE: Single frontal radiographic view of the chest acquired. RADIATION DOSE: NA LIMITATIONS: None. FINDINGS: LUNGS AND PLEURA: No opacities, masses or pneumothorax. No pleural effusion. MEDIASTINUM AND HILAR STRUCTURES: No masses. Contour normal. HEART AND VASCULAR STRUCTURES: Heart normal in size. Normal vasculature. BONES: No acute findings. HARDWARE: None in the chest. OTHER: No other significant finding. IMPRESSION: NO ACUTE RADIOGRAPHIC FINDING IN THE CHEST. TECHNICAL DOCUMENTATION: JOB ID: [id number] [employer]- All Rights Reserved Reading location - IP/workstation name: [email or web address]
[2018-01-13 20:48] LABS: TROPONIN I 1.95 ng/mL
[2018-01-13] MEDS ORDERED: ASPIRIN 81 MG TABLET, CHEWABLE PO ONE (20:52)
[2018-01-13] MEDS ORDERED: METOPROLOL TARTRATE PF/INJ 5 MG/5 ML SDV IV ONE ×2 (21:03→22:08)
[2018-01-13] MEDS ORDERED: HEPARIN SODIUM,PORCINE/D5W 25,000 UNIT/250 ML RTUINJ IV PRN (21:19)
[2018-01-13] MEDS ORDERED: HEPARIN SOD (PORCINE) 1,000 UNIT/ML 10 ML VIAL IV ONE (21:19)
[2018-01-13 21:22] LABS: APPEARANCE,URINE CLOUDY; BILIRUBIN,URINE NEGATIVE (NEGATIVE); COLOR,URINE AMBER; GLUCOSE, URINE NEGATIVE (NEGATIVE); KETONES,URINE TRACE mg/dL (NEGATIVE); LEUKOCYTE ESTERASE,URINE LARGE (NEGATIVE); NITRITE,URINE NEGATIVE (NEGATIVE); PROTEIN,URINE NEGATIVE (NEGATIVE); URINE SPECIFIC GRAVITY 1.018
[2018-01-13 21:29] LABS: INTERNATIONAL RATION (INR) 0.84; PROTHROMBIN TIME 11.9 SEC (11.4-15.4)
[2018-01-13 21:30] LABS: PARTIAL THROMBOPLASTIN TIME 37.2 SEC (23.5-35.8)
[2018-01-13 21:36] LABS: URINE AMPHETAMINES SCREEN NEGATIVE; URINE BARBITURATES SCREEN NEGATIVE; URINE BENZODIAZEPINES SCREEN NEGATIVE; URINE COCAINE SCREEN NEGATIVE; URINE MARIJUANA (THC) SCREEN NEGATIVE; URINE METHADONE SCREEN NEGATIVE; URINE PHENCYCLIDINE SCREEN NEGATIVE
[2018-01-13 23:19] VITALS: BP 102/75
[2018-01-14] MEDS ORDERED: HEPARIN SOD (PORCINE) 1,000 UNIT/ML 10 ML VIAL IV PRN (00:19)
--- NOTE | 2018-01-15 07:38 | EKG REPORT ---
SEVERITY:- ABNORMAL ECG - SINUS TACHYCARDIA ELMA, CONSIDER BIATRIAL ABNORMALITIES PROBABLE INFERIOR INFARCT, OLD CONSIDER ANTERIOR INFARCT BORDERLINE PROLONGED QT INTERVAL : Confirmed by: El Werner MD 15-Jan-2018 07:37:44
== END 2018-01-13 23:32 | disposition short-term general hospital (02) ==
LOC: ER 19:03
DX: I95.9 Hypotension, unspecified (principal); R74.8 Abnormal levels of other serum enzymes; D72.829 Elevated white blood cell count, unspecified; R53.1 Weakness; R06.02 Shortness of breath; R42 Dizziness and giddiness; R53.83 Other fatigue; J44.9 Chronic obstructive pulmonary disease, unspecified; R06.09 Other forms of dyspnea; R05 Cough; F17.210 Nicotine dependence, cigarettes, uncomplicated; F15.10 Other stimulant abuse, uncomplicated; R00.0 Tachycardia, unspecified; I10 Essential (primary) hypertension; Z88.8 Allergy status to other drugs, medicaments and biological substances; Z85.41 Personal history of malignant neoplasm of cervix uteri
CPT/HCPCS: 93005; 96376; 99291; 96361; 96375; 96365; 96366; 36415; 82553; 80307 ×2; 82550; 85025; 85610; 85730; 80053; 81001; 84484; 71045; 93010; J1644 ×2; A9270; J3490; J7030

== ENCOUNTER 2018-04-18 08:43 | Emergency (ER) | payer MEDICARE, MEDICAID ==
[2018-04-18] MEDS ORDERED: LIDOCAINE 1% INJ-PF (10 MG/ML) 30 ML SDV INJ ONE (09:21)
--- NOTE | 2018-04-18 09:23 | ER Document Report ---
ED Medical Screen (RME) - General Chief Complaint: Abscess Stated Complaint: POSSIBLE ABSCESS Time Seen by Provider: 04/18/18 09:19 Notes: Patient has painful swelling of the right inner thigh for about 3 days. It keeps getting bigger and bigger. She says she has not squeezed it. Says it is very painful. Has not drained. Never had this before. Not diabetic. TRAVEL OUTSIDE OF THE [place] IN LAST 30 DAYS: No - Related Data Allergies/Adverse Reactions: alprazolam [From Xanax] Allergy (Verified 04/18/18 09:21) citalopram hydrobromide [From Celexa] Allergy (Verified 04/18/18 09:21) dextromethorphan HBr [From NyQuil] Allergy (Verified 04/18/18 09:21) doxylamine [From NyQuil] Allergy (Verified 04/18/18 09:21) fluoxetine HCl [From Prozac] Allergy (Verified 04/18/18 09:21) pseudoephedrine HCl [From NyQuil] Allergy (Verified 04/18/18 09:21) trazodone [Trazodone] Allergy (Verified 04/18/18 09:21) antidepressants Adverse Reaction (Uncoded 04/18/18 09:21) Hallucinations Past Medical History - Social History Family history: CVA, Malignancy - Past Medical History Cardiac Medical History: Reports: Hx Hypertension Denies: Hx Coronary Artery Disease, Hx Heart Attack Pulmonary Medical History: Reports: Hx Asthma, Hx Bronchitis, Hx COPD, Hx Pneumonia Denies: Hx Tuberculosis Neurological Medical History: Reports: Hx Migraine. Denies: Hx Cerebrovascular Accident Renal/ Medical History: Denies: Hx Peritoneal Dialysis Malignancy Medical History: Reports: Hx Cervical Cancer GI Medical History: Reports: Hx Cirrhosis, Hx Gastritis Musculoskeltal Medical History: Denies Hx Arthritis, Reports Hx Muscle Weakness, Reports Hx Musculoskeletal Trauma Psychiatric Medical History: Reports: Hx Anxiety, Hx Bipolar Disorder, Hx Depression Traumatic Medical History: Reports: Hx Fractures Past Surgical History: Reports: Hx Section - x3, Hx Gynecologic Surgery - cervical dysplasia, Hx Tonsillectomy. Denies: Hx Pacemaker - Immunizations Immunizations up to date: Yes Hx Diphtheria, Pertussis, Tetanus Vaccination: Yes Physical Exam - Vital signs Vitals: Temp Pulse Resp BP Pulse Ox 98.7 F 93 16 104/63 98 04/18/18 08:53 04/18/18 08:53 04/18/18 08:53 04/18/18 08:53 04/18/18 08:53 Course - Vital Signs Vital signs: Temp Pulse Resp BP Pulse Ox 98.7 F 93 16 104/63 98 04/18/18 08:53 04/18/18 08:53 04/18/18 08:53 04/18/18 08:53 04/18/18 08:53 Doctor's Discharge - Discharge Referrals: THIEN DUCKWORTH MD [Primary Care Provider] - Follow up as needed
[2018-04-18] MEDS ORDERED: LIDOCAINE 1%/EPINEPHRINE INJ 20 ML VIAL INJ ONE (09:45)
--- NOTE | 2018-04-18 09:49 | ER Document Report ---
ED General - General Chief Complaint: Abscess Stated Complaint: POSSIBLE ABSCESS Time Seen by Provider: 04/18/18 09:19 Mode of Arrival: Ambulatory Information source: Patient Notes: 63-year-old female that presents today with the onset 3 days ago of a painful area to her right groin. She denies any diabetes history, any fevers, or vomiting. She denies a history of abscesses in the past. She denies any dysuria, abdominal pain, or flank pain. TRAVEL OUTSIDE OF THE [place] IN LAST 30 DAYS: No - HPI Onset: Other - See above Quality of pain: Other - See above Severity: Mild Pain Level: Denies Associated symptoms: Other - See above Exacerbated by: Denies Relieved by: Denies Similar symptoms previously: No Recently seen / treated by doctor: No - Related Data Allergies/Adverse Reactions: alprazolam [From Xanax] Allergy (Verified 04/18/18 09:21) citalopram hydrobromide [From Celexa] Allergy (Verified 04/18/18 09:21) dextromethorphan HBr [From NyQuil] Allergy (Verified 04/18/18 09:21) doxylamine [From NyQuil] Allergy (Verified 04/18/18 09:21) fluoxetine HCl [From Prozac] Allergy (Verified 04/18/18 09:21) pseudoephedrine HCl [From NyQuil] Allergy (Verified 04/18/18 09:21) trazodone [Trazodone] Allergy (Verified 04/18/18 09:21) antidepressants Adverse Reaction (Uncoded 04/18/18 09:21) Hallucinations Past Medical History - Social History Smoking Status: Current Every Day Smoker Chew tobacco use (# tins/day): No Frequency of alcohol use: Heavy Drug Abuse: None Family History: Reviewed & Not Pertinent Patient has suicidal ideation: No Patient has homicidal ideation: No - Past Medical History Cardiac Medical History: Reports: Hx Hypertension Denies: Hx Coronary Artery Disease, Hx Heart Attack Pulmonary Medical History: Reports: Hx Asthma, Hx Bronchitis, Hx COPD, Hx Pneumonia Denies: Hx Tuberculosis Neurological Medical History: Reports: Hx Migraine. Denies: Hx Cerebrovascular Accident Renal/ Medical History: Denies: Hx Peritoneal Dialysis Malignancy Medical History: Reports: Hx Cervical Cancer GI Medical History: Reports: Hx Cirrhosis, Hx Gastritis Musculoskeletal Medical History: Denies Hx Arthritis, Reports Hx Muscle Weakness, Reports Hx Musculoskeletal Trauma Psychiatric Medical History: Reports: Hx Anxiety, Hx Bipolar Disorder, Hx Depression Traumatic Medical History: Reports: Hx Fractures Past Surgical History: Reports: Hx Section - x3, Hx Gynecologic Surgery - cervical dysplasia, Hx Tonsillectomy. Denies: Hx Pacemaker - Immunizations Immunizations up to date: Yes Hx Diphtheria, Pertussis, Tetanus Vaccination: Yes Physical Exam - Vital signs Vitals: Temp Pulse Resp BP Pulse Ox 98.7 F 93 16 104/63 98 04/18/18 08:53 04/18/18 08:53 04/18/18 08:53 04/18/18 08:53 04/18/18 08:53 Notes: Reviewed vital signs and nursing note as charted by RN. CONSTITUTIONAL: Alert and oriented and responds appropriately to questions. Well-appearing; well-nourished ABD/GI: Normal bowel sounds; non-distended; soft, non-tender; no palpable organomegaly or masses EXT: Patient has an indurated fluctuant area to the right groin with some surrounding erythema. There is no extension into the perineal region or labial regions. Neurovascularly intact distally SKIN: See above NEURO: 5 out of 5 strength of bilateral lower extremities PSYCH: The patient's mood and manner are appropriate. Grooming and personal hygiene are appropriate. Course - Re-evaluation Re-evalutation: 04/18/18 09:48 Given the history and physical examination we will perform an Accu-Chek, and perform a bedside incision and drainage. Given the lack of extension to the perineal region with a labial lesion, afebrile, with no history of diabetes, I do not believe any blood work is necessary at this moment. I would treat both w ith Bactrim and Keflex given the abscess with some surrounding cellulitis. We will [place] the area of cellulitis prior to discharge with strict return precautions and wound check care follow-up. 04/18/18 10:10 Accu-Chek is normal. Despite the patient stating that she has no past medical history it appears that the patient does have a history of cardiac disease. I therefore will not provide Bactrim and Keflex but instead provide a course of doxycycline. Patient has called her friend to ensure that the patient can have follow-up with reassessment tomorrow. - Vital Signs Vital signs: Temp Pulse Resp BP Pulse Ox 98.7 F 93 16 104/63 98 04/18/18 08:53 04/18/18 08:53 04/18/18 08:53 04/18/18 08:53 04/18/18 08:53 Procedures - Incision and Drainage Right Leg Type: Complex, Single Anesthetic type: 1% Lidocaine w/epi Blade size: 11 I&D procedure: Chlorprep applied Incision Method: Incision made by scalpel Amount/type of drainage: Purulent Notes: 04/18/18 10:13 I probed and deloculated the abscess and placed quarter inch iodoform packing Discharge - Discharge Clinical Impression: Abscess of leg, right Condition: Good Disposition: HOME, SELF-CARE Instructions: Abscess ([facility]), Post Incision and Drainage Additional Instructions: Come back immediately with any increased redness, pain, drainage, fever, vomiting, or any other acute problems. Please make sure that you take the antibiotics as prescribed. Please come back tomorrow for reassessment of the abscess as we have discussed. Prescriptions: Doxycycline Hyclate 100 mg PO BID #20 capsule Referrals: THIEN DUCKWORTH MD [Primary Care Provider] - Follow up as needed
[2018-04-18] MEDS ORDERED: DOXYCYCLINE HYCLATE 100 MG TABLET PO ONE (10:10)
[2018-04-18 10:46] VITALS: BP 110/70
== END 2018-04-18 10:48 | disposition home or self-care (01) ==
LOC: ER 08:43
DX: L02.415 Cutaneous abscess of right lower limb (principal); L03.115 Cellulitis of right lower limb; I10 Essential (primary) hypertension; J44.9 Chronic obstructive pulmonary disease, unspecified; F17.200 Nicotine dependence, unspecified, uncomplicated; Z85.41 Personal history of malignant neoplasm of cervix uteri; Z88.8 Allergy status to other drugs, medicaments and biological substances
CPT/HCPCS: 99283; 82962; 10060; A9270; J3490

== ENCOUNTER 2018-04-19 10:10 | Inpatient (IN) | payer MEDICARE, MEDICAID ==
[2018-04-19] MEDS ORDERED: SUCCINYLCHOLINE CHLORIDE INJ 200 MG/10 ML VIAL ONE (10:16)
--- NOTE | 2018-04-19 11:17 | ER Document Report ---
ED Medical Screen (RME) - General Chief Complaint: Abscess Recheck Stated Complaint: ABSCESS RECHECK Time Seen by Provider: 04/19/18 10:51 Mode of Arrival: Ambulatory Information source: Patient Notes: Patient is a 63-year-old female who presents the emergency department for a wound recheck. Patient had an abscess to her right thigh/groin incised and drained here in the emergency department yesterday and was placed on oral antibiotics. Patient was instructed to return within 24 hours for wound recheck. Patient has not change the dressing yet. Patient denies any fevers. I removed the dressing that was in place from yesterday there is a significant amount of drainage noted on the dressing. There is a marking that was done by Dr. Woody yesterday with a surgical marker the erythema has extended past the surgical marking significantly by at least 4 cm. Patient will be upgraded to NUBIA 3 for probable IV antibiotics. I have greeted and performed a rapid initial assessment of this patient. A comprehensive ED assessment and evaluation of the patient, analysis of test results and completion of the medical decision making process will be conducted by additional ED providers. Dictation of this chart was performed using voice recognition software; therefore, there may be some unintended grammatical errors. TRAVEL OUTSIDE OF THE [place] IN LAST 30 DAYS: No - Related Data Allergies/Adverse Reactions: alprazolam [From Xanax] Allergy (Verified 04/18/18 09:21) citalopram hydrobromide [From Celexa] Allergy (Verified 04/18/18 09:21) dextromethorphan HBr [From NyQuil] Allergy (Verified 04/18/18 09:21) doxylamine [From NyQuil] Allergy (Verified 04/18/18 09:21) fluoxetine HCl [From Prozac] Allergy (Verified 04/18/18 09:21) pseudoephedrine HCl [From NyQuil] Allergy (Verified 04/18/18 09:21) trazodone [Trazodone] Allergy (Verified 04/18/18 09:21) antidepressants Adverse Reaction (Uncoded 04/18/18 09:21) Hallucinations Past Medical History - Social History Chew tobacco use (# tins/day): No Frequency of alcohol use: Occasional Drug Abuse: None Family history: CVA, Malignancy - Past Medical History Cardiac Medical History: Reports: Hx Hypertension Denies: Hx Coronary Artery Disease, Hx Heart Attack Pulmonary Medical History: Reports: Hx Asthma, Hx Bronchitis, Hx COPD, Hx Pneumonia Denies: Hx Tuberculosis Neurological Medical History: Reports: Hx Migraine. Denies: Hx Cerebrovascular Accident Renal/ Medical History: Denies: Hx Peritoneal Dialysis Malignancy Medical History: Reports: Hx Cervical Cancer GI Medical History: Reports: Hx Cirrhosis, Hx Gastritis Musculoskeltal Medical History: Denies Hx Arthritis, Reports Hx Muscle Weakness, Reports Hx Musculoskeletal Trauma Psychiatric Medical History: Reports: Hx Anxiety, Hx Bipolar Disorder, Hx Depression Traumatic Medical History: Reports: Hx Fractures Past Surgical History: Reports: Hx Section - x3, Hx Gynecologic Surgery - cervical dysplasia, Hx Tonsillectomy. Denies: Hx Pacemaker - Immunizations Immunizations up to date: Yes Hx Diphtheria, Pertussis, Tetanus Vaccination: Yes Physical Exam - Vital signs Vitals: Temp Pulse Resp BP Pulse Ox 99.0 F 95 18 119/77 100 04/19/18 10:15 04/19/18 10:15 04/19/18 10:15 04/19/18 10:15 04/19/18 10:15 Course - Vital Signs Vital signs: Temp Pulse Resp BP Pulse Ox 99.0 F 95 18 119/77 100 04/19/18 10:15 04/19/18 10:15 04/19/18 10:15 04/19/18 10:15 04/19/18 10:15 Doctor's Discharge - Discharge Referrals: THIEN DUCKWORTH MD [Primary Care Provider] - Follow up as needed
[2018-04-19 11:51] LABS: ABSOLUTE EOSINOPHILS # (AUTO) 0.1 10^3/uL (0.0-0.6); ABSOLUTE LYMPHOCYTES (AUTO) 1.2 10^3/uL (0.5-4.7); ABSOLUTE MONOCYTES (AUTO) 1.4 10^3/uL (0.1-1.4); ABSOLUTE NEUT (AUTO) 6.8 10^3/uL (1.7-8.2); BASOPHILS % (AUTO) 0.2 % (0-2); EOSINOPHILS % (AUTO) 0.6 % (0-6); HEMATOCRIT 35.8 % (36.0-47.0); HEMOGLOBIN 12.2 g/dL (12.0-15.5); LYMPHOCYTES % (AUTO) 12.2 % (13-45); MEAN CORPUSCULAR HEMOGLOBIN 33.9 pg (27.0-33.4); MEAN CORPUSCULAR HGB CONC 34.1 g/dL (32.0-36.0); MEAN CORPUSCULAR VOLUME 99 fl (80-97); PLATELET COUNT 207 10^3/uL (150-450); RED CELL DISTRIBUTION WIDTH 14.3 % (11.5-14.0); TOTAL CELLS COUNTED % (AUTO) 100 %; WHITE BLOOD COUNT 9.4 10^3/uL (4.0-10.5)
--- NOTE | 2018-04-19 11:57 | ER Document Report ---
ED General - General Chief Complaint: Abscess Recheck Stated Complaint: ABSCESS RECHECK Time Seen by Provider: 04/19/18 10:51 Mode of Arrival: Ambulatory Notes: 63-year-old female presents emergency department for a wound reevaluation. Patient was seen in the emergency department yesterday and was diagnosed with abscess/cellulitis to the right upper thigh. The abscess was incised and drained. Packing was placed. There was no involvement into the perineal area. Patient was discharged home on doxycycline and told to return to the emergency department today for a reevaluation. Patient filled her doxycycline and has had 3 doses of the medication. She denies any fever or chills. She denies a history of MRSA or abscesses. She denies a history of diabetes. TRAVEL OUTSIDE OF THE [place] IN LAST 30 DAYS: No - HPI Onset: Last week Onset/Duration: Gradual Quality of pain: Achy Associated symptoms: None Exacerbated by: Movement Relieved by: Denies Similar symptoms previously: Yes Recently seen / treated by doctor: Yes - Related Data Allergies/Adverse Reactions: alprazolam [From Xanax] Allergy (Verified 04/18/18 09:21) citalopram hydrobromide [From Celexa] Allergy (Verified 04/18/18 09:21) dextromethorphan HBr [From NyQuil] Allergy (Verified 04/18/18 09:21) doxylamine [From NyQuil] Allergy (Verified 04/18/18 09:21) fluoxetine HCl [From Prozac] Allergy (Verified 04/18/18 09:21) pseudoephedrine HCl [From NyQuil] Allergy (Verified 04/18/18 09:21) trazodone [Trazodone] Allergy (Verified 04/18/18 09:21) antidepressants Adverse Reaction (Uncoded 04/18/18 09:21) Hallucinations Past Medical History - General Information source: Patient - Social History Smoking Status: Current Every Day Smoker Chew tobacco use (# tins/day): No Frequency of alcohol use: Occasional Drug Abuse: None Family History: Reviewed & Not Pertinent Patient has suicidal ideation: No Patient has homicidal ideation: No - Past Medical History Cardiac Medical History: Reports: Hx Hypertension Denies: Hx Coronary Artery Disease, Hx Heart Attack Pulmonary Medical History: Reports: Hx Asthma, Hx Bronchitis, Hx COPD, Hx Pneumonia Denies: Hx Tuberculosis Neurological Medical History: Reports: Hx Migraine. Denies: Hx Cerebrovascular Accident Renal/ Medical History: Denies: Hx Peritoneal Dialysis Malignancy Medical History: Reports: Hx Cervical Cancer GI Medical History: Reports: Hx Cirrhosis, Hx Gastritis Musculoskeletal Medical History: Denies Hx Arthritis, Reports Hx Muscle Weakne ss, Reports Hx Musculoskeletal Trauma Psychiatric Medical History: Reports: Hx Anxiety, Hx Bipolar Disorder, Hx Depression Traumatic Medical History: Reports: Hx Fractures Past Surgical History: Reports: Hx Section - x3, Hx Gynecologic Surgery - cervical dysplasia, Hx Tonsillectomy. Denies: Hx Pacemaker - Immunizations Immunizations up to date: Yes Hx Diphtheria, Pertussis, Tetanus Vaccination: Yes Review of Systems - Review of Systems Constitutional: No symptoms reported EENT: No symptoms reported Cardiovascular: No symptoms reported Respiratory: No symptoms reported Gastrointestinal: No symptoms reported Genitourinary: No symptoms reported Female Genitourinary: No symptoms reported Musculoskeletal: No symptoms reported Skin: Change in color, Lesions Neurological/Psychological: No symptoms reported -: Yes All other systems reviewed and negative Physical Exam - Vital signs Vitals: Temp Pulse Resp BP Pulse Ox 99.0 F 95 18 119/77 100 04/19/18 10:15 04/19/18 10:15 04/19/18 10:15 04/19/18 10:15 04/19/18 10:15 - Notes Notes: PHYSICAL EXAMINATION: GENERAL: Well-appearing, well-nourished and in no acute distress. HEAD: Atraumatic, normocephalic. EYES: Pupils equal round and reactive to light, extraocular movements intact, conjunctiva are normal. ENT: Nares patent, oropharynx clear without exudates. Moist mucous membranes. NECK: Normal range of motion, supple without lymphadenopathy LUNGS: Breath sounds clear to auscultation bilaterally and equal. No wheezes rales or rhonchi. HEART: Regular rate and rhythm without murmurs ABDOMEN: Soft, nontender, nondistended abdomen. No guarding, no rebound. No masses appreciated. Female : No extension of cellulitis/abscess into the labia. Musculoskeletal: Baseball size area of induration to the proximal R thigh with surrounding erythema. Erythema was marked yesterday. It is extending the marker by approximately 4cm. No labial involvement. No crepitance. NEUROLOGICAL: Cranial nerves grossly intact. Normal speech, normal gait. Normal sensory, motor exams PSYCH: Normal mood, normal affect. SKIN: Abscess and cellulitis- see above. Course - Re-evaluation Re-evalutation: 04/19/18 13:05 White blood cell count is normal. Patient given morphine for pain. I will start the patient on a vancomycin. Has the patient has had 3 doses of doxycycline and the erythema is worsening I will admit the patient to the hospitalist. Patient's vital signs are stable. - Vital Signs Vital signs: Temp Pulse Resp BP Pulse Ox 99.0 F 95 18 119/77 100 04/19/18 10:15 04/19/18 10:15 04/19/18 10:15 04/19/18 10:15 04/19/18 10:15 - Laboratory Result Diagrams: 04/19/18 11:37 04/19/18 11:37 Laboratory results interpreted by me: 04/19/18 04/19/18 11:37 11:37 RBC 3.60 L Hct 35.8 L MCV 99 H MCH 33.9 H RDW 14.3 H Lymphocytes % 12.2 L Monocytes % 15.0 H Sodium 135.3 L Total Protein 5.8 L Discharge - Discharge Clinical Impression: Cellulitis and abscess of right leg Condition: Stable Disposition: ADMITTED OBSERVATION Admitting Provider: Hospitalist Unit Admitted: Medical Floor Referrals: THIEN DUCKWORTH MD [Primary Care Provider] - Follow up as needed
[2018-04-19 12:05] LABS: ALANINE AMINOTRANSFERASE 23 U/L (9-52); ALBUMIN 3.6 g/dL (3.5-5.0); ALKALINE PHOSPHATASE 86 U/L (38-126); ANION GAP 8 (5-19); ASPARTATE AMINO TRANSFERASE 20 U/L (14-36); BILIRUBIN,DIRECT 0.2 mg/dL (0.0-0.4); BILIRUBIN,TOTAL 0.3 mg/dL (0.2-1.3); BLOOD UREA NITROGEN 13 mg/dL (7-20); CALCIUM 9.3 mg/dL (8.4-10.2); CARBON DIOXIDE 24 mmol/L (22-30); CHLORIDE 103 mmol/L (98-107); GLUCOSE 86 mg/dL (75-110); POTASSIUM 4.7 mmol/L (3.6-5.0); SODIUM 135.3 mmol/L (137-145); TOTAL PROTEIN 5.8 g/dL (6.3-8.2)
[2018-04-19] MEDS ORDERED: VANCOMYCIN HCL INJ 1000 MG VIAL IV ONE (12:55)
[2018-04-19] MEDS ORDERED: MORPHINE SULFATE 10 MG/ML INJ IV ONE (13:02)
[2018-04-19] MEDS ORDERED: PROMETHAZINE HCL INJ 25 MG/1 ML VIAL IV PRN ×2 (13:34→18:34)
[2018-04-19] MEDS ORDERED: MAGNESIUM HYDROXIDE SUSP 30 ML UDCUP PO PRN (13:34)
[2018-04-19] MEDS ORDERED: NORMAL SALINE 1000 ML 1,000 ML IV PRN ×3 (13:34→19:16)
[2018-04-19] MEDS ORDERED: VANCOMYCIN HCL 0 MG in DEXTROSE 5%-WATER 250 ML IV NR (13:45)
[2018-04-19] MEDS ORDERED: MORPHINE SULFATE 10 MG/ML INJ IV PRN ×2 (13:51→18:34)
--- NOTE | 2018-04-19 14:54 | PDOC CONSULTATION ---
Consultation Consult Date: 04/19/18 Consult reason:: right thigh redness and foul smelling wound History of Present Illness Admission Date/PCP: 04/19/18 14:13 THIEN DUCKWORTH MD History of Present Illness: SIMON WILLIAM is a 63 year old female, hx of CAD and recent coronary stent placement on Plavix, x 3, T&A, sen in the ER yesterday for right upper inner thigh abscess. This was drained and packed and she was prescribed tetracyclins. Today, she returns to the ER for followup and I was called by he admitting hospitalist because of foul smelling odor from the incised wound as well as spreading of the redness beyond the marking placed last evening. The patient reports pain in the area fo the right upper inner thigh and denies other systemic symptoms. Past Medical History Cardiac Medical History: Reports: Hypertension Denies: Coronary Artery Disease, Myocardial Infarction Pulmonary Medical History: Reports: Asthma, Bronchitis, Chronic Obstructive Pulmonary Disease (COPD), Pneumonia Denies: Tuberculosis Neurological Medical History: Reports: Migraine Malignancy Medical History: Reports: Cervical Cancer GI Medical History: Reports: Cirrhosis Musculoskeltal Medical History: Denies: Arthritis Psychiatric Medical History: Reports: Bipolar Disorder, Depression Hematology: Denies: Anemia Past Surgical History Past Surgical History: Reports: Section - x3, Tonsillectomy Denies: Pacemaker Social History Smoking Status: Current Every Day Smoker Frequency of Alcohol Use: Heavy Hx Recreational Drug Use: No Hx Prescription Drug Abuse: No Family History Family History: Reviewed & Not Pertinent Parental Family History Reviewed: No Children Family History Reviewed: No Sibling(s) Family History Reviewed.: No Medication/Allergy Home Medications: Albuterol Sulfate [Proair Hfa Inhalation Aerosol 8.5 gm Mdi] 2 puff IH Q4 PRN 04/19/18 Aspirin [Adult Aspirin] 81 mg PO DAILY 04/19/18 Atorvastatin Calcium [Lipitor 80 mg Tablet] 80 mg PO QHS 04/19/18 Cariprazine HCl [Vraylar] 6 mg PO DAILY 04/19/18 Clopidogrel Bisulfate [Plavix 75 mg Tablet] 75 mg PO DAILY 04/19/18 Lisinopril [Prinivil 2.5 mg Tablet] 2.5 mg PO DAILY 04/19/18 Metoprolol Succinate [Toprol Xl] 25 mg PO DAILY 04/19/18 Multivitamin [Daily Multiple Vitamin] 1 each PO DAILY 04/19/18 Tiotropium [place] [Spiriva Handihaler 5 Cap/Kit (18 Mcg/Cap)] 1 cap IH DAILY 04/19/18 Allergies/Adverse Reactions: alprazolam [From Xanax] Allergy (Verified 04/18/18 09:21) citalopram hydrobromide [From Celexa] Allergy (Verified 04/18/18 09:21) dextromethorphan HBr [From NyQuil] Allergy (Verified 04/18/18 09:21) doxylamine [From NyQuil] Allergy (Verified 04/18/18 09:21) fluoxetine HCl [From Prozac] Allergy (Verified 04/18/18 09:21) pseudoephedrine HCl [From NyQuil] Allergy (Verified 04/18/18 09:21) trazodone [Trazodone] Allergy (Verified 04/18/18 09:21) antidepressants Adverse Reaction (Uncoded 04/18/18 09:21) Hallucinations Physical Exam Vital Signs: Temp Pulse Resp BP Pulse Ox 99.0 F 95 18 119/77 100 04/19/18 10:15 04/19/18 10:15 04/19/18 10:15 04/19/18 10:15 04/19/18 10:15 Intake & Output 04/18/18 04/19/18 04/20/18 06:59 06:59 06:59 Weight 66.9 kg General appearance: PRESENT: mild distress Head exam: PRESENT: atraumatic Eye exam: PRESENT: EOMI Mouth exam: PRESENT: dry mucosa, neck supple Teeth exam: PRESENT: poor dentation Neck exam: PRESENT: full ROM Respiratory exam: PRESENT: clear to auscultation paul Cardiovascular exam: PRESENT: RRR GI/Abdominal exam: PRESENT: soft Rectal exam: PRESENT: normal inspection - as well as no pain on palpation of the perianum Extremities exam: PRESENT: full ROM, other - Right upper inner thigh= large area of erythema marked with surgical markings extendingin all directions but limited to upper 1/3/thigh, tender; 3 cm. surgical scar located in the josse- medial aspect of the upper, inner thigh with fetor and black discoloration of the deep tissues Musculoskeletal exam: PRESENT: full ROM Psychiatric exam: PRESENT: anxious Skin exam: PRESENT: other - see above Results Laboratory Results: 04/19/18 11:37 04/19/18 11:37 04/19/18 04/19/18 11:37 11:37 WBC 9.4 RBC 3.60 L Hgb 12.2 Hct 35.8 L MCV 99 H MCH 33.9 H MCHC 34.1 RDW 14.3 H Plt Count 207 Seg Neutrophils % 72.0 Lymphocytes % 12.2 L Monocytes % 15.0 H Eosinophils % 0.6 Basophils % 0.2 Absolute Neutrophils 6.8 Absolute Lymphocytes 1.2 Absolute Monocytes 1.4 Absolute Eosinophils 0.1 Absolute Basophils 0.0 Sodium 135.3 L Potassium 4.7 Chloride 103 Carbon Dioxide 24 Anion Gap 8 BUN 13 Creatinine 0.62 Est GFR ( Amer) > 60 Est GFR (Non-Af Amer) > 60 Glucose 86 Calcium 9.3 Total Bilirubin 0.3 AST 20 ALT 23 Alkaline Phosphatase 86 Total Protein 5.8 L Albumin 3.6 Assessment & Plan - Diagnosis (1) gangrene thigh Is this a current diagnosis for this admission?: Yes (2) Cellulitis and abscess of right leg Is this a current diagnosis for this admission?: Yes - Plan Summary Plan Summary: A/ Right upper inner thigh erythema, pain S/P I&D abscess of right, upper inner thigh by ED personnel yesterday Worsening of the appearance of the abscess site with now foul smell from surgical wound as well as suspected gangrene of the right upper and inner thigh soft tisue Blood work WNL Patient s/p recent placement of coronary artery stent 2 months ago on Plavix P/ I&D right upper, inner thigh abscess EKG preop Continue Vanco/Zosyn Aggressive preop hydration PLAN: I&D of right, upper, inner thigh abscess site. Procedure, risks, benefits. alternatives explained to the patient, she understands all the above, and decides to proceed.
[2018-04-19] MEDS ORDERED: ENOXAPARIN SODIUM INJ 40 MG/0.4 ML DISP.SYRIN SUBCUT SCH (15:00)
[2018-04-19] MEDS ORDERED: NORMAL SALINE 1000 ML 1,000 ML IV ONE ×2 (15:15→19:15)
[2018-04-19] MEDS ORDERED: CITRIC ACID/SODIUM CITRATE ORAL SOLN 15 ML UDCUP PO ONE (16:00)
[2018-04-19] MEDS: LANSOPRAZOLE 30 MG TAB.RAP.DR PO SCH (16:05)
[2018-04-19] MEDS ORDERED: FENTANYL CITRATE INJ/PF 100 MCG/2 ML AMPUL ONE (17:32)
[2018-04-19] MEDS ORDERED: MIDAZOLAM 2 MG/2 ML INJ ONE (17:32)
[2018-04-19] MEDS ORDERED: PROPOFOL INJ 200 MG/20 ML VIAL IV ONE (17:33)
[2018-04-19] MEDS ORDERED: ONDANSETRON HCL INJ/PF 4 MG/2 ML SDV ONE (17:33)
[2018-04-19] MEDS ORDERED: MEPERIDINE HCL/PF INJ 25 MG/1 ML DISP.SYRIN IV PRN (18:34)
[2018-04-19] MEDS ORDERED: OXYCODONE-ACETAMINOPHEN 5-325 MG TABLET PO PRN ×2 (18:34)
[2018-04-19] MEDS ORDERED: FENTANYL CITRATE INJ/PF 100 MCG/2 ML AMPUL IV PRN ×2 (18:34)
[2018-04-19] MEDS ORDERED: NEOMY/BACITRAC ZN/POLY OINT 15 GM ONE (18:36)
--- NOTE | 2018-04-19 19:08 | Operative Report ---
Nonrecallable Operative Report DATE OF SURGERY: 04/19/18 PREOPERATIVE DIAGNOSIS: right upper inner thigh abscess POSTOPERATIVE DIAGNOSIS: same with soft tissue gangrene OPERATION: I&D rigth upper inner thigh abscess. Full thickness debridment of right upper inned thigh skin and subcutaneous fat down to fascia measuring 12 x 9 cm SURGEON: ALLYSON ZAVALETA ANESTHESIA: GA TISSUE REMOVED OR ALTERED: [facility] upper inner thigh skin and subcutaneous fat tissue COMPLICATIONS: none ESTIMATED BLOOD LOSS: 30 mL INTRAOPERATIVE FINDINGS: necrotic skin and subcutaneous fat extending to but not including muscle fascia
[2018-04-19] MEDS: PIPERACILLIN SODIUM/TAZOBACTAM 3.375 GM in NORMAL SALINE 100 ML IV SCH (19:15)
[2018-04-19] MEDS ORDERED: ONDANSETRON HCL INJ/PF 4 MG/2 ML SDV IV PRN (19:16)
[2018-04-19] MEDS ORDERED: ALBUTEROL SULFATE HFA (90 MCG/PUFF) 200 PUFF/8.5 GM MDI IH PRN (19:18)
--- NOTE | 2018-04-19 19:47 | HISTORY AND PHYSICAL E ---
History and Physical NAME: SIMON WILLIAM : 1955 AGE: 63Y ADMITTED: 04/19/2018 ROOM: ED37 REASON FOR CONSULT: Abscess, cellulitis, right thigh. HISTORY OF PRESENT ILLNESS: The patient is a 63-year-old female who has a history of hypertension, COPD, hyperlipidemia, heavy alcohol drinking. She was admitted here before in April 03, probably secondary to alcohol use, possible withdrawal. At that time, she had a fracture of the left proximal humerus. The patient came today with pain and swelling in the right thigh. She had the swelling yesterday and she went to the urgent care. Was told she had abscess, was drained. However, the pain has continued and the swelling, redness. She does not have any fever. Came to the emergency room and she was found to have abscess in the right thigh. She denied nausea, vomiting, diarrhea. She complained of pain, but there was no fever. REVIEW OF SYSTEMS: GENERAL: No fever or chills. HEAD: No headache or dizziness. EYES: No blurring of vision. No double vision. EARS: No tinnitus. No vertigo. NECK: No difficulty swallowing. RESPIRATORY: No cough, no wheeze, no hemoptysis. CARDIOVASCULAR: No chest pain, no *------* dyspnea, no orthopnea. GASTROINTESTINAL: No nausea, no vomiting, no diarrhea. GENITOURINARY: No urgency, no frequency, no dysuria, no hematuria. ENDOCRINE: No polyuria, polyphagia or polydipsia. HEMATOLOGIC: No significant anemia. No easy bruising. PAST MEDICAL HISTORY: 1. Hypertension. 2. Depression. 3. Asthma. 4. COPD. 5. Insomnia. 6. Alcohol use. SOCIAL HISTORY: The patient is a heavy smoker for 50 years. Smokes a pack a day. She also drinks heavily. Denies IV drug use. Has 3 kids; 1 boy, 2 girls. She is on disability. PAST SURGICAL HISTORY: 1. . 2. Cardiac cath with stent placement. 3. Cholecystectomy. 4. Laparoscopy. HOME MEDICATION: 1. Prednisone 10 mg. 2. Lamictal 150 mg daily. 3. Hydroxyzine. 4. Cymbalta 60 twice a day. 5. *------* 100 mg twice a day. 6. Cefdinir 300 mg twice a day. 7. Xanax 1 mg at bedtime q.8 hours. ALLERGIES: 1. CITALOPRAM. 2. HYDROCHLOROTHIAZIDE. FAMILY HISTORY: Positive for cancer; mother had breast cancer, and father, esophageal cancer. PHYSICAL EXAMINATION: GENERAL: Patient lying in bed, comfortable, complaining of pain. VITAL SIGNS: Blood pressure is 119/77, temperature 99, heart rate is 95, saturation 100%, respiratory rate 18. HEENT: Head normocephalic, atraumatic. Pupils round, reactive to light and accommodation. Bilateral extraocular movements intact. Ears: Tympanic membranes are intact. No discharge from the ears. No discharge from the nose. NECK: Supple. No increased JVD. No thyromegaly, no lymphadenopathy. CARDIOVASCULAR: Normal S1, S2. Regular rate and rhythm. No murmur. No gallop. RESPIRATORY: Lungs clear to auscultation bilaterally. ABDOMEN: Soft, nontender. MUSCULOSKELETAL: No edema. NEUROLOGICAL: Awake, alert. SKIN: No rash. HEMATOLOGIC: No significant anemia. No easy bruising. LOCAL EXAMINATION: On the right thigh, she has swelling, pain, tender, red, hot. LABORATORY DATA: White blood cells 9.4, hemoglobin 12.2, hematocrit 35. Sodium 135, potassium 4.7, creatinine 0.6. ASSESSMENT: 1. ABSCESS OF THE RIGHT THIGH WITH SURROUNDING AREA OF CELLULITIS. 2. HYPERTENSION. 3. COPD. 4. ALCOHOL USE. 5. TOBACCO USE. 6. DEPRESSION. PLAN: 1. Will admit the patient to surgical floor. 2. Surgery consult for incision and drainage. 3. Broad coverage antibiotic with vancomycin and Zosyn. 4. Pain control with morphine. 5. Continue her home medications. 6. DVT prophylaxis. 7. GI prophylaxis. 8. Activity as tolerated. 9. Diet: Low salt diet. 10. Blood culture, wound culture, lab tomorrow morning. 11. CODE STATUS: She is FULL CODE. TIME SPENT: One hour. DICTATING PHYSICIAN: LUIS ALBERTO MENDOZA M.D. [id number] PHY#: [id number] ID: [id number] JOB#: [id number] ACCT: [id number] cc:LUIS ALBERTO MENDOZA M.D. >
[2018-04-19] MEDS: DOCUSATE SODIUM 100 MG CAPSULE PO SCH (20:42)
[2018-04-19] MEDS: MORPHINE SULFATE 10 MG/ML INJ IV PRN (21:44)
[2018-04-19] MEDS ORDERED: ZOLPIDEM TARTRATE 5 MG TABLET PO SCH (22:00)
[2018-04-19] MEDS: ATORVASTATIN CALCIUM 80 MG TABLET PO SCH (23:06)
[2018-04-19] MEDS: FAMOTIDINE INJ/PF 20 MG/2 ML SDV IV SCH (23:06)
[2018-04-19] MEDS: VANCOMYCIN HCL 1,000 MG in DEXTROSE 5%-WATER 250 ML IV SCH (23:07)
--- NOTE | 2018-04-19 23:47 | EKG REPORT ---
SEVERITY:- BORDERLINE ECG - SINUS RHYTHM BORDERLINE T ABNORMALITIES, ANT-LAT LEADS : Confirmed by: Edwin Mc 19-Apr-2018 23:47:14
[2018-04-20] MEDS ORDERED: PIPERACILLIN SODIUM/TAZOBACTAM 3.375 GM in NORMAL SALINE 100 ML IV SCH ×2
[2018-04-20] MEDS: MORPHINE SULFATE 10 MG/ML INJ IV PRN ×5 (00:27→21:47)
[2018-04-20] MEDS: PIPERACILLIN SODIUM/TAZOBACTAM 3.375 GM in NORMAL SALINE 100 ML IV SCH ×4 (02:30→18:35)
[2018-04-20] MEDS: LANSOPRAZOLE 30 MG TAB.RAP.DR PO SCH ×2 (05:22→18:35)
[2018-04-20 06:34] LABS: HEMOGLOBIN 11.5 g/dL (12.0-15.5); MEAN CORPUSCULAR HEMOGLOBIN 33.9 pg (27.0-33.4); MEAN CORPUSCULAR HGB CONC 33.8 g/dL (32.0-36.0); MEAN CORPUSCULAR VOLUME 100 fl (80-97); PLATELET COUNT 186 10^3/uL (150-450); RED BLOOD COUNT 3.39 10^6/uL (3.72-5.28); RED CELL DISTRIBUTION WIDTH 14.3 % (11.5-14.0); WHITE BLOOD COUNT 9.9 10^3/uL (4.0-10.5)
[2018-04-20 07:03] LABS: ABSOLUTE LYMPHOCYTES# (MANUAL) 1.4 10^3/uL (0.5-4.7); ABSOLUTE MONOCYTES # (MANUAL) 1.8 10^3/uL (0.1-1.4); ABSOLUTE NEUTROPHILS# (MANUAL) 6.6 10^3/uL (1.7-8.2); ANISOCYTOSIS SLIGHT; BAND NEUTROPHILS % (MANUAL) 1 % (3-5); BASOPHILS % (MANUAL) 0 % (0-2); EOSINOPHILS % (MANUAL) 1 % (0-6); LYMPHOCYTES % (MANUAL) 14 % (13-45); MONOCYTES % (MANUAL) 18 % (3-13); PLATELET COMMENT ADEQUATE; SEGMENTED NEUTROPHILS % (MAN) 66 % (42-78); TOTAL CELLS COUNTED 100; TOXIC GRANULATION SLIGHT
[2018-04-20 07:40] LABS: ALBUMIN 3.2 g/dL (3.5-5.0); ALKALINE PHOSPHATASE 65 U/L (38-126); ANION GAP 10 (5-19); ASPARTATE AMINO TRANSFERASE 23 U/L (14-36); BILIRUBIN,DIRECT 0.3 mg/dL (0.0-0.4); BILIRUBIN,TOTAL 0.3 mg/dL (0.2-1.3); BLOOD UREA NITROGEN 10 mg/dL (7-20); CALCIUM 8.2 mg/dL (8.4-10.2); CARBON DIOXIDE 22 mmol/L (22-30); CHLORIDE 105 mmol/L (98-107); GLUCOSE 102 mg/dL (75-110); PHOSPHORUS 4.1 mg/dL (2.5-4.5); POTASSIUM 4.2 mmol/L (3.6-5.0); SODIUM 136.6 mmol/L (137-145); TOTAL PROTEIN 5.4 g/dL (6.3-8.2)
[2018-04-20 08:06] LABS: ALANINE AMINOTRANSFERASE 31 U/L (9-52)
[2018-04-20] MEDS ORDERED: ALBUTEROL SULFATE HFA (90 MCG/PUFF) 200 PUFF/8.5 GM MDI IH PRN (08:22)
[2018-04-20] MEDS ORDERED: ONDANSETRON HCL INJ/PF 4 MG/2 ML SDV IV PRN (08:30)
[2018-04-20] MEDS: ASPIRIN 81 MG TABLET, ENT COATED PO SCH (09:14)
[2018-04-20] MEDS: CLOPIDOGREL BISULFATE 75 MG TABLET PO SCH (09:14)
[2018-04-20] MEDS: LISINOPRIL 5 MG TABLET PO SCH (09:14)
[2018-04-20] MEDS: METOPROLOL SUCCINATE 25 MG TAB.SR.24H PO SCH (09:14)
[2018-04-20] MEDS: FAMOTIDINE INJ/PF 20 MG/2 ML SDV IV SCH ×2 (09:15→21:47)
[2018-04-20] MEDS: MULTIVITAMIN TABLET PO SCH (09:15)
[2018-04-20] MEDS: TIOTROPIUM BROMIDE DPI 5 CAP/KIT (18 MCG/CAP) IH SCH (09:15)
[2018-04-20] MEDS: VANCOMYCIN HCL 1,000 MG in DEXTROSE 5%-WATER 250 ML IV SCH ×2 (09:15→21:47)
[2018-04-20] MEDS: ENOXAPARIN SODIUM INJ 40 MG/0.4 ML DISP.SYRIN SUBCUT SCH (09:15)
[2018-04-20] MEDS: DOCUSATE SODIUM 100 MG CAPSULE PO SCH ×2 (09:15→18:35)
--- NOTE | 2018-04-20 09:41 | PDOC PROGRESS REPORT ---
Subjective Progress Note for:: 04/20/18 Reason For Visit: ABSCESS RT THIGH Physical Exam Vital Signs: Temp Pulse Resp BP Pulse Ox 97.9 F 93 20 106/56 L 94 04/20/18 03:40 04/20/18 03:40 04/20/18 03:40 04/20/18 03:40 04/20/18 03:40 Intake & Output 04/19/18 04/20/18 04/21/18 06:59 06:59 06:59 Intake Total 3372 100 Output Total 1250 Balance 2122 100 Weight 71.8 kg Results Laboratory Results: 04/20/18 05:12 04/20/18 07:13 04/19/18 04/19/18 04/20/18 11:37 11:37 05:12 WBC 9.4 9.9 RBC 3.60 L 3.39 L Hgb 12.2 11.5 L Hct 35.8 L 34.0 L MCV 99 H 100 H MCH 33.9 H 33.9 H MCHC 34.1 33.8 RDW 14.3 H 14.3 H Plt Count 207 186 Seg Neutrophils % 72.0 Not Reportable Lymphocytes % 12.2 L Not Reportable Monocytes % 15.0 H Not Reportable Eosinophils % 0.6 Not Reportable Basophils % 0.2 Not Reportable Absolute Neutrophils 6.8 Not Reportable Absolute Lymphocytes 1.2 Not Reportable Absolute Monocytes 1.4 Not Reportable Absolute Eosinophils 0.1 Not Reportable Absolute Basophils 0.0 Not Reportable Sodium 135.3 L Potassium 4.7 Chloride 103 Carbon Dioxide 24 Anion Gap 8 BUN 13 Creatinine 0.62 Est GFR ( Amer) > 60 Est GFR (Non-Af Amer) > 60 Glucose 86 Calcium 9.3 Phosphorus Magnesium Total Bilirubin 0.3 AST 20 ALT 23 Alkaline Phosphatase 86 Total Protein 5.8 L Albumin 3.6 04/20/18 04/20/18 05:12 07:13 WBC RBC Hgb Hct MCV MCH MCHC RDW Plt Count Seg Neutrophils % Lymphocytes % Monocytes % Eosinophils % Basophils % Absolute Neutrophils Absolute Lymphocytes Absolute Monocytes Absolute Eosinophils Absolute Basophils Sodium Cancelled 136.6 L Potassium Cancelled 4.2 Chloride Cancelled 105 Carbon Dioxide Cancelled 22 Anion Gap Cancelled 10 BUN Cancelled 10 Creatinine Cancelled 0.59 Est GFR ( Amer) Cancelled > 60 Est GFR (Non-Af Amer) Cancelled > 60 Glucose Cancelled 102 Calcium Cancelled 8.2 L Phosphorus Cancelled 4.1 Magnesium Cancelled 1.6 Total Bilirubin Cancelled 0.3 AST Cancelled 23 ALT Cancelled 31 Alkaline Phosphatase Cancelled 65 Total Protein Cancelled 5.4 L Albumin Cancelled 3.2 L Assessment & Plan - Diagnosis (1) Cellulitis and abscess of right leg Is this a current diagnosis for this admission?: Yes - Plan Summary Plan Summary: This is a 63-year-old female status post incision and drainage of a right thigh abscess with debridement of nonviable tissue. The wound base is clean today. There is no active purulence. There is no necrotic tissue. I have changed the dressing at the bedside today. I will initiate damp to dry dressing changes twice daily. Have discussed options with the patient at length. The patient is requesting home wound VAC therapy. I will arrange for this. Continue antibiotics. Start oral pain medications. Discontinue Zhou catheter. Out of bed/ambulate today.
[2018-04-20] MEDS ORDERED: ENOXAPARIN SODIUM INJ 30 MG/0.3 ML DISP.SYRIN SUBCUT SCH (10:00)
[2018-04-20] MEDS ORDERED: CARIPRAZINE HCL 6 MG PO SCH (10:00)
[2018-04-20] MEDS: HYDROCODONE/ACETAMINOPHEN 5-325 MG TABLET PO PRN ×3 (12:27→23:04)
--- NOTE | 2018-04-20 13:06 | OPERATIVE REPORT E ---
Operative Report NAME: SIMON WILLIAM : 1955 AGE: 63Y DATE OF SURGERY: 04/19/2018 ROOM: 322 PREOPERATIVE DIAGNOSIS: Right upper inner thigh abscess with soft tissue gangrene. POSTOPERATIVE DIAGNOSIS: Right upper inner thigh abscess with soft tissue gangrene. PROCEDURES: 1. Incision and drainage right upper inner thigh abscess. 2. Full-thickness debridement of right upper inner thigh skin, subcutaneous fat down to fascia measuring 3.9 cm (sharp debridement). SURGEON: ALLYSON ZAVALETA M.D. SHEET TAKER: None. BLEEDIN mL. COMPLICATIONS: None. ANESTHESIA: General. FLUIDS: 600. INDICATION AND FINDINGS: This is a 63-year-old female who presented to the emergency room with a complaint of right upper inner thigh swelling, redness, pain. The patient went to the emergency room yesterday where a small incision and drainage of the area was performed. The wound was examined today and presented with foul smell, odor, as well as necrotic tissue found at the bottom of the wound. The decision was made to take the patient to surgery immediately for wide debridement today. The procedure risks, benefits, and complications were explained to the patient and she agrees. Questions were answered and she decided to proceed. DESCRIPTION OF PROCEDURE: She was taken to the operating room. The patient was placed in a supine position. Anesthesia and intubation were then obtained. The patient was placed in a supine lithotomy position. The perineum and right upper thigh were prepped and draped in the usual fashion. The previous drainage incision was located in the medial aspect of the right upper thigh. The skin opening was enlarged so to access . A large amount of necrotic subcutaneous fat was identified. This was sharply excised with Bovie down to fascia and the debridement was continued circumferentially until good bleeding thigh tissue was identified. This allowed the formation of the subcutaneous cavity measuring 12.9 cm. Following this, the area was cleaned with curette, irrigated with normal saline. No additional areas of necrotic tissue was identified. Bleeders were cauterized. The area was packed with triple antibiotic ointment followed by Kerlix, 4 x 4, ABDs, and GLORIA bandage. The patient tolerated the procedure well and was transferred to the recovery room in satisfactory condition. DICTATING PHYSICIAN: ALLYSON ZAVALETA M.D. [id number] PHY#: [id number] ID: [id number] JOB#: [id number] ACCT: [id number] cc:ALLYSON ZAVALETA M.D. >
--- NOTE | 2018-04-20 13:42 | PDOC PROGRESS REPORT ---
Subjective Progress Note for:: 04/20/18 Subjective:: Assumed care today. Reviewed notes. This is a 63 yr old female with a PMH of hypertension, COPD, hyperlipidemia and alcohol use who was admitted for a right thigh abscess. Patient underwent an I&D in the ER on 04/18/18 and was sent home on doxycycline. She had recurrence of erythema and discharge on the area and hence was admitted for IV antibotics and repeat I&D. She underwent I&D by surgery last night 04/19/18. No acute event overnight. No fever or chills. Surgical packing in place on wound. No active drainage noted. Reason For Visit: ABSCESS RT THIGH Physical Exam Vital Signs: Temp Pulse Resp BP Pulse Ox 97.7 F 92 16 103/59 L 98 04/20/18 12:05 04/20/18 12:05 04/20/18 12:05 04/20/18 12:05 04/20/18 12:05 Intake & Output 04/19/18 04/20/18 04/21/18 06:59 06:59 06:59 Intake Total 3372 1410 Output Total 1250 Balance 2122 1410 Weight 158 lb 4.67 oz General appearance: PRESENT: no acute distress, well-developed, well-nourished Head exam: PRESENT: atraumatic, normocephalic Eye exam: PRESENT: conjunctiva pink, EOMI, PERRLA. ABSENT: scleral icterus Ear exam: PRESENT: normal external ear exam Mouth exam: PRESENT: moist, tongue midline Neck exam: ABSENT: carotid bruit, JVD, lymphadenopathy, thyromegaly Respiratory exam: PRESENT: clear to auscultation paul. ABSENT: rales, rhonchi, wheezes Cardiovascular exam: PRESENT: RRR. ABSENT: diastolic murmur, rubs, systolic murmur Pulses: PRESENT: normal dorsalis pedis pul GI/Abdominal exam: PRESENT: normal bowel sounds, soft. ABSENT: distended, guarding, mass, organolmegaly, rebound, tenderness Rectal exam: PRESENT: deferred Extremities exam: PRESENT: other - Surgical packing in place on wound on right thigh. No active drainage noted. Neurological exam: PRESENT: alert, awake, oriented to person, oriented to place, oriented to time, oriented to situation, CN II-XII grossly intact. ABSENT: motor sensory deficit Results Laboratory Results: 04/20/18 05:12 04/20/18 07:13 04/20/18 04/20/18 04/20/18 05:12 05:12 07:13 WBC 9.9 RBC 3.39 L Hgb 11.5 L Hct 34.0 L MCV 100 H MCH 33.9 H MCHC 33.8 RDW 14.3 H Plt Count 186 Seg Neutrophils % Not Reportable Lymphocytes % Not Reportable Monocytes % Not Reportable Eosinophils % Not Reportable Basophils % Not Reportable Absolute Neutrophils Not Reportable Absolute Lymphocytes Not Reportable Absolute Monocytes Not Reportable Absolute Eosinophils Not Reportable Absolute Basophils Not Reportable Sodium Cancelled 136.6 L Potassium Cancelled 4.2 Chloride Cancelled 105 Carbon Dioxide Cancelled 22 Anion Gap Cancelled 10 BUN Cancelled 10 Creatinine Cancelled 0.59 Est GFR ( Amer) Cancelled > 60 Est GFR (Non-Af Amer) Cancelled > 60 Glucose Cancelled 102 Calcium Cancelled 8.2 L Phosphorus Cancelled 4.1 Magnesium Cancelled 1.6 Total Bilirubin Cancelled 0.3 AST Cancelled 23 ALT Cancelled 31 Alkaline Phosphatase Cancelled 65 Total Protein Cancelled 5.4 L Albumin Cancelled 3.2 L Assessment & Plan - Diagnosis (1) Cellulitis and abscess of right leg Is this a current diagnosis for this admission?: Yes Plan: S/P I&D in the ER on 04/18/18. S/P repeat I&D by surgery on 04/19/18. Preliminary wound GS show gram positive cocci and gram negative rods. Continue Zosyn and vancomycin today. De-escalate antibiotics pending final culture results. (2) Hypertension Is this a current diagnosis for this admission?: Yes Plan: Continue lisinopril and metoprolol. (3) COPD (chronic obstructive pulmonary disease) Is this a current diagnosis for this admission?: Yes Plan: Not in exacerbation. Continue breathing treatments prn. - Time Time Spent with patient: 25-34 minutes
[2018-04-20] MEDS: ATORVASTATIN CALCIUM 80 MG TABLET PO SCH (21:46)
[2018-04-21] MEDS: PIPERACILLIN SODIUM/TAZOBACTAM 3.375 GM in NORMAL SALINE 100 ML IV SCH ×4 (00:03→17:54)
[2018-04-21] MEDS: MORPHINE SULFATE 10 MG/ML INJ IV PRN ×4 (04:49→16:36)
[2018-04-21] MEDS: LANSOPRAZOLE 30 MG TAB.RAP.DR PO SCH ×2 (05:02→17:54)
[2018-04-21 05:32] LABS: ANION GAP 5 (5-19); BLOOD UREA NITROGEN 8 mg/dL (7-20); CALCIUM 8.5 mg/dL (8.4-10.2); CARBON DIOXIDE 26 mmol/L (22-30); CHLORIDE 108 mmol/L (98-107); GLUCOSE 93 mg/dL (75-110); POTASSIUM 4.3 mmol/L (3.6-5.0); SODIUM 138.8 mmol/L (137-145)
[2018-04-21] MEDS: HYDROCODONE/ACETAMINOPHEN 5-325 MG TABLET PO PRN ×3 (06:23→22:16)
[2018-04-21 07:46] LABS: CREATINE KINASE MB 0.99 ng/mL (<4.55)
[2018-04-21 07:55] LABS: TROPONIN I < 0.012 ng/mL
--- NOTE | 2018-04-21 07:55 | EKG REPORT ---
SEVERITY:- BORDERLINE ECG - SINUS RHYTHM BORDERLINE R WAVE PROGRESSION, ANTERIOR LEADS BORDERLINE T ABNORMALITIES, ANT-LAT LEADS : Confirmed by: Savannah Tang MD 21-Apr-2018 07:54:19
[2018-04-21 09:28] LABS: APPEARANCE,URINE SLIGHTLY-CLOUDY; BILIRUBIN,URINE NEGATIVE (NEGATIVE); COLOR,URINE YELLOW; GLUCOSE, URINE NEGATIVE (NEGATIVE); KETONES,URINE NEGATIVE (NEGATIVE); LEUKOCYTE ESTERASE,URINE LARGE (NEGATIVE); NITRITE,URINE NEGATIVE (NEGATIVE); PROTEIN,URINE NEGATIVE (NEGATIVE); URINE SPECIFIC GRAVITY 1.029; UROBILINOGEN,URINE NEGATIVE mg/dL (<2.0)
[2018-04-21] MEDS: ASPIRIN 81 MG TABLET, ENT COATED PO SCH (09:31)
[2018-04-21] MEDS: CLOPIDOGREL BISULFATE 75 MG TABLET PO SCH (09:31)
[2018-04-21] MEDS: DOCUSATE SODIUM 100 MG CAPSULE PO SCH ×2 (09:31→17:54)
[2018-04-21] MEDS: METOPROLOL SUCCINATE 25 MG TAB.SR.24H PO SCH (09:31)
[2018-04-21] MEDS: LISINOPRIL 5 MG TABLET PO SCH (09:31)
[2018-04-21] MEDS: MULTIVITAMIN TABLET PO SCH (09:31)
[2018-04-21] MEDS: ENOXAPARIN SODIUM INJ 40 MG/0.4 ML DISP.SYRIN SUBCUT SCH (09:32)
[2018-04-21] MEDS: FAMOTIDINE INJ/PF 20 MG/2 ML SDV IV SCH ×2 (09:32→22:17)
[2018-04-21] MEDS: TIOTROPIUM BROMIDE DPI 5 CAP/KIT (18 MCG/CAP) IH SCH (10:57)
[2018-04-21] MEDS: VANCOMYCIN HCL 1,000 MG in DEXTROSE 5%-WATER 250 ML IV SCH ×2 (10:59→22:55)
[2018-04-21 11:09] LABS: VANCOMYCIN,TROUGH 11.9 ug/mL (5.0-20.0)
--- NOTE | 2018-04-21 16:18 | PDOC PROGRESS REPORT ---
Subjective Progress Note for:: 04/21/18 Subjective:: No adverse events overnight. No new complaints. Vital signs been stable. She says her abscess area on the inside of her right thigh does not bother her too bad as long as she is not moving. She is been afebrile. Reason For Visit: ABSCESS RT THIGH Physical Exam Vital Signs: Temp Pulse Resp BP Pulse Ox 98.1 F 81 16 132/72 H 98 04/21/18 10:41 04/21/18 10:41 04/21/18 10:41 04/21/18 10:41 04/21/18 10:41 Intake & Output 04/20/18 04/21/18 04/22/18 06:59 06:59 06:59 Intake Total 3372 2504 275 Output Total 1250 200 Balance 2122 2504 75 Weight 71.8 kg 68.9 kg General appearance: PRESENT: no acute distress, cooperative, disheveled Respiratory exam: PRESENT: clear to auscultation paul, symmetrical, unlabored. ABSENT: accessory muscle use, prolonged expiratory phas, rales, rhonchi, tachypnea, wheezes Cardiovascular exam: PRESENT: RRR, +S1, +S2 GI/Abdominal exam: PRESENT: normal bowel sounds, soft. ABSENT: distended, guarding, rebound, tenderness Extremities exam: PRESENT: other - The abscess area on her right thigh is cleanly dressed without any shadowing on the bandage. ABSENT: clubbing, pedal edema Musculoskeletal exam: PRESENT: normal inspection. ABSENT: deformity Neurological exam: PRESENT: alert, awake, oriented to person, oriented to place, oriented to time, oriented to situation Psychiatric exam: PRESENT: unusual affect Skin exam: PRESENT: dry, warm Results Laboratory Results: 04/20/18 05:12 04/21/18 04:42 04/21/18 04/21/18 04:42 09:05 Sodium 138.8 Potassium 4.3 Chloride 108 H Carbon Dioxide 26 Anion Gap 5 BUN 8 Creatinine 0.67 Est GFR ( Amer) > 60 Est GFR (Non-Af Amer) > 60 Glucose 93 Calcium 8.5 Urine Color YELLOW Urine Appearance SLIGHTLY-CLOUDY Urine pH 5.0 Ur Specific [place] 1.029 Urine Protein NEGATIVE Urine Glucose (UA) NEGATIVE Urine Ketones NEGATIVE Urine Blood MODERATE H Urine Nitrite NEGATIVE Ur Leukocyte Esterase LARGE H Urine WBC (Auto) 9 Urine RBC (Auto) 48 01/22/19 01/22/19 07:06 07:06 Creatine Kinase 51 CK-MB (CK-2) 0.99 Troponin I < 0.012 Assessment & Plan - Diagnosis (1) Cellulitis and abscess of right leg Is this a current diagnosis for this admission?: Yes Plan: Surgery has ordered a wound VAC. We are waiting on culture results for antibiotic susceptibility to help guide choices. Hopefully we can have her out of here the next day or 2. - Time Time Spent with patient: 25-34 minutes
--- NOTE | 2018-04-21 21:21 | PDOC PROGRESS REPORT ---
Subjective Progress Note for:: 04/21/18 Subjective:: less pains right thigh wound Reason For Visit: ABSCESS RT THIGH Physical Exam Vital Signs: Temp Pulse Resp BP Pulse Ox 98.5 F 85 20 118/88 H 96 04/21/18 20:12 04/21/18 20:12 04/21/18 20:12 04/21/18 20:12 04/21/18 20:12 Intake & Output 04/20/18 04/21/18 04/22/18 06:59 06:59 06:59 Intake Total 3372 2504 1050 Output Total 1250 200 Balance 2122 2504 850 Weight 71.8 kg 68.9 kg Exam: Right thigh wound looks clean and dry. Results Laboratory Results: 04/20/18 05:12 04/21/18 04:42 04/21/18 04/21/18 04:42 09:05 Sodium 138.8 Potassium 4.3 Chloride 108 H Carbon Dioxide 26 Anion Gap 5 BUN 8 Creatinine 0.67 Est GFR ( Amer) > 60 Est GFR (Non-Af Amer) > 60 Glucose 93 Calcium 8.5 Urine Color YELLOW Urine Appearance SLIGHTLY-CLOUDY Urine pH 5.0 Ur Specific [place] 1.029 Urine Protein NEGATIVE Urine Glucose (UA) NEGATIVE Urine Ketones NEGATIVE Urine Blood MODERATE H Urine Nitrite NEGATIVE Ur Leukocyte Esterase LARGE H Urine WBC (Auto) 9 Urine RBC (Auto) 48 04/21/18 04/21/18 07:06 07:06 Creatine Kinase 51 CK-MB (CK-2) 0.99 Troponin I < 0.012 Assessment & Plan - Time Time Spent with patient: 15-24 minutes - Inpatient Certification Medical Necessity: Need for IV Antibiotics, Risk of Complication if Not Cared For in Hospital - Plan Summary Plan Summary: Await wound vac at home. Discharge when wound vac available ,hopefully by tomorrow Continue IV antibiotics
[2018-04-21] MEDS: ATORVASTATIN CALCIUM 80 MG TABLET PO SCH (22:17)
[2018-04-22] MEDS: PIPERACILLIN SODIUM/TAZOBACTAM 3.375 GM in NORMAL SALINE 100 ML IV SCH ×4 (00:49→19:22)
[2018-04-22] MEDS: LANSOPRAZOLE 30 MG TAB.RAP.DR PO SCH ×2 (05:44→19:20)
[2018-04-22 07:01] LABS: HEMATOCRIT 35.5 % (36.0-47.0); MEAN CORPUSCULAR HEMOGLOBIN 33.4 pg (27.0-33.4); MEAN CORPUSCULAR HGB CONC 33.9 g/dL (32.0-36.0); MEAN CORPUSCULAR VOLUME 99 fl (80-97); PLATELET COUNT 219 10^3/uL (150-450); RED CELL DISTRIBUTION WIDTH 14.2 % (11.5-14.0)
[2018-04-22 07:22] LABS: ANION GAP 5 (5-19); BLOOD UREA NITROGEN 6 mg/dL (7-20); CALCIUM 8.7 mg/dL (8.4-10.2); CARBON DIOXIDE 26 mmol/L (22-30); CHLORIDE 109 mmol/L (98-107); GLUCOSE 93 mg/dL (75-110); POTASSIUM 3.8 mmol/L (3.6-5.0); SODIUM 140.1 mmol/L (137-145)
--- NOTE | 2018-04-22 09:38 | PDOC PROGRESS REPORT ---
Subjective Progress Note for:: 04/22/18 Subjective:: no pains Reason For Visit: ABSCESS RT THIGH Physical Exam Vital Signs: Temp Pulse Resp BP Pulse Ox 98.0 F 94 18 131/55 H 92 04/22/18 07:47 04/22/18 07:47 04/22/18 07:47 04/22/18 07:47 04/22/18 07:47 Intake & Output 04/21/18 04/22/18 04/23/18 06:59 06:59 06:59 Intake Total 2504 1400 100 Output Total 200 Balance 2504 1200 100 Weight 68.9 kg 69.6 kg Exam: wound vac placed on right thigh yesterday Results Laboratory Results: 04/22/18 06:34 04/22/18 06:34 04/22/18 04/22/18 06:34 06:34 WBC 8.0 RBC 3.60 L Hgb 12.0 Hct 35.5 L MCV 99 H MCH 33.4 MCHC 33.9 RDW 14.2 H Plt Count 219 Sodium 140.1 Potassium 3.8 Chloride 109 H Carbon Dioxide 26 Anion Gap 5 BUN 6 L Creatinine 0.59 Est GFR ( Amer) > 60 Est GFR (Non-Af Amer) > 60 Glucose 93 Calcium 8.7 04/21/18 04/21/18 07:06 07:06 Creatine Kinase 51 CK-MB (CK-2) 0.99 Troponin I < 0.012 Assessment & Plan - Time Time Spent with patient: 15-24 minutes - Plan Summary Plan Summary: Await availability of wound vac at home prior to discharge Continue IV antibiotics while in hospital
[2018-04-22] MEDS: HYDROCODONE/ACETAMINOPHEN 5-325 MG TABLET PO PRN ×3 (09:40→19:20)
[2018-04-22] MEDS: ASPIRIN 81 MG TABLET, ENT COATED PO SCH (09:41)
[2018-04-22] MEDS: DOCUSATE SODIUM 100 MG CAPSULE PO SCH ×2 (09:41→19:20)
[2018-04-22] MEDS: FAMOTIDINE INJ/PF 20 MG/2 ML SDV IV SCH ×2 (09:42→22:13)
[2018-04-22] MEDS: METOPROLOL SUCCINATE 25 MG TAB.SR.24H PO SCH (09:43)
[2018-04-22] MEDS: MULTIVITAMIN TABLET PO SCH (09:43)
[2018-04-22] MEDS: ENOXAPARIN SODIUM INJ 40 MG/0.4 ML DISP.SYRIN SUBCUT SCH (09:43)
[2018-04-22] MEDS: TIOTROPIUM BROMIDE DPI 5 CAP/KIT (18 MCG/CAP) IH SCH (09:49)
[2018-04-22] MEDS: VANCOMYCIN HCL 1,000 MG in DEXTROSE 5%-WATER 250 ML IV SCH ×2 (12:32→22:13)
[2018-04-22] MEDS: CLOPIDOGREL BISULFATE 75 MG TABLET PO SCH (12:32)
[2018-04-22] MEDS: LISINOPRIL 5 MG TABLET PO SCH (12:32)
--- NOTE | 2018-04-22 14:27 | PDOC PROGRESS REPORT ---
Subjective Progress Note for:: 04/22/18 Subjective:: No adverse events overnight. No new complaints. Vital signs been stable. She is been afebrile. She is been resting comfortably. She got her wound VAC put on. Reason For Visit: ABSCESS RT THIGH Physical Exam Vital Signs: Temp Pulse Resp BP Pulse Ox 98.5 F 86 15 153/73 H 96 04/22/18 11:25 04/22/18 11:25 04/22/18 11:25 04/22/18 11:25 04/22/18 11:25 Intake & Output 04/21/18 04/22/18 04/23/18 06:59 06:59 06:59 Intake Total 2504 1400 100 Output Total 200 Balance 2504 1200 100 Weight 68.9 kg 69.6 kg General appearance: PRESENT: no acute distress, cooperative, disheveled Respiratory exam: PRESENT: clear to auscultation paul, symmetrical, unlabored. ABSENT: accessory muscle use, prolonged expiratory phas, rales, rhonchi, tachypnea, wheezes Cardiovascular exam: PRESENT: RRR, +S1, +S2 GI/Abdominal exam: PRESENT: normal bowel sounds, soft. ABSENT: distended, guarding, rebound, tenderness Extremities exam: PRESENT: other - The abscess area on her right thigh has a wound VAC dressing. ABSENT: clubbing, pedal edema Musculoskeletal exam: PRESENT: normal inspection. ABSENT: deformity Neurological exam: PRESENT: alert, awake, oriented to person, oriented to place, oriented to time, oriented to situation Psychiatric exam: PRESENT: unusual affect Skin exam: PRESENT: dry, warm Results Laboratory Results: 04/22/18 06:34 04/22/18 06:34 04/22/18 04/22/18 06:34 06:34 WBC 8.0 RBC 3.60 L Hgb 12.0 Hct 35.5 L MCV 99 H MCH 33.4 MCHC 33.9 RDW 14.2 H Plt Count 219 Sodium 140.1 Potassium 3.8 Chloride 109 H Carbon Dioxide 26 Anion Gap 5 BUN 6 L Creatinine 0.59 Est GFR ( Amer) > 60 Est GFR (Non-Af Amer) > 60 Glucose 93 Calcium 8.7 04/19/18 18:29 Thigh - Right Side Abscess Gram Stain - Final 04/19/18 18:28 Thigh - Right Side Abscess Gram Stain - Final 04/21/18 04/21/18 07:06 07:06 Creatine Kinase 51 CK-MB (CK-2) 0.99 Troponin I < 0.012 Assessment & Plan - Diagnosis (1) Cellulitis and abscess of right leg Is this a current diagnosis for this admission?: Yes Plan: Wound VAC has been applied. She will follow-up with surgery as an outpatient. She has had organisms show up in her wound cultures. We hope to have definitive identification and susceptibility results by tomorrow to help guide antibiotic choices. Hope to be able to have her discharged tomorrow.
[2018-04-22] MEDS: PROMETHAZINE HCL INJ 25 MG/1 ML VIAL IV PRN (19:35)
[2018-04-22] MEDS: ATORVASTATIN CALCIUM 80 MG TABLET PO SCH (22:13)
[2018-04-23] MEDS: PIPERACILLIN SODIUM/TAZOBACTAM 3.375 GM in NORMAL SALINE 100 ML IV SCH ×3 (00:53→13:23)
[2018-04-23] MEDS: PROMETHAZINE HCL INJ 25 MG/1 ML VIAL IV PRN ×4 (01:32→22:57)
[2018-04-23] MEDS: HYDROCODONE/ACETAMINOPHEN 5-325 MG TABLET PO PRN ×6 (01:32→22:48)
[2018-04-23] MEDS: LANSOPRAZOLE 30 MG TAB.RAP.DR PO SCH ×2 (05:50→16:38)
[2018-04-23 06:57] LABS: ANION GAP 8 (5-19); BLOOD UREA NITROGEN 5 mg/dL (7-20); CALCIUM 8.9 mg/dL (8.4-10.2); CARBON DIOXIDE 24 mmol/L (22-30); CHLORIDE 109 mmol/L (98-107); GLUCOSE 105 mg/dL (75-110); POTASSIUM 3.3 mmol/L (3.6-5.0); SODIUM 140.8 mmol/L (137-145)
[2018-04-23] MEDS ORDERED: POTASSIUM CHLORIDE 10 MEQ CAPSULE.ER PO ONE (09:30)
[2018-04-23] MEDS: ASPIRIN 81 MG TABLET, ENT COATED PO SCH (10:24)
[2018-04-23] MEDS: MULTIVITAMIN TABLET PO SCH (10:24)
[2018-04-23] MEDS: METOPROLOL SUCCINATE 25 MG TAB.SR.24H PO SCH (10:24)
[2018-04-23] MEDS: ENOXAPARIN SODIUM INJ 40 MG/0.4 ML DISP.SYRIN SUBCUT SCH ×2 (10:25→13:57)
[2018-04-23] MEDS: DOCUSATE SODIUM 100 MG CAPSULE PO SCH ×2 (10:25→18:02)
[2018-04-23] MEDS: FAMOTIDINE INJ/PF 20 MG/2 ML SDV IV SCH ×2 (10:27→22:47)
[2018-04-23] MEDS: CLOPIDOGREL BISULFATE 75 MG TABLET PO SCH (10:28)
[2018-04-23] MEDS: LISINOPRIL 5 MG TABLET PO SCH (10:28)
[2018-04-23] MEDS: TIOTROPIUM BROMIDE DPI 5 CAP/KIT (18 MCG/CAP) IH SCH (10:28)
[2018-04-23] MEDS: VANCOMYCIN HCL 1,000 MG in DEXTROSE 5%-WATER 250 ML IV SCH ×2 (10:42→22:00)
--- NOTE | 2018-04-23 15:39 | PDOC PROGRESS REPORT ---
Subjective Progress Note for:: 04/23/18 Subjective:: No adverse events overnight. No new complaints. Vital signs been stable. No fevers. Apparently she was getting out of bed and not calling for help and her wound VAC is come disconnected a couple of times. Reason For Visit: ABSCESS RT THIGH Physical Exam Vital Signs: Temp Pulse Resp BP Pulse Ox 98.1 F 78 17 152/74 H 99 04/23/18 11:57 04/23/18 11:57 04/23/18 11:57 04/23/18 11:57 04/23/18 11:57 Intake & Output 04/22/18 04/23/18 04/24/18 06:59 06:59 06:59 Intake Total 1400 1722 800 Output Total 200 Balance 1200 1722 800 Weight 69.6 kg 69.9 kg General appearance: PRESENT: no acute distress, cooperative, disheveled Respiratory exam: PRESENT: clear to auscultation paul, symmetrical, unlabored. ABSENT: accessory muscle use, prolonged expiratory phas, rales, rhonchi, tachyp riya, wheezes Cardiovascular exam: PRESENT: RRR, +S1, +S2 GI/Abdominal exam: PRESENT: normal bowel sounds, soft. ABSENT: distended, guarding, rebound, tenderness Extremities exam: PRESENT: other - The abscess area on her right thigh has a wound VAC dressing. ABSENT: clubbing, pedal edema Musculoskeletal exam: PRESENT: normal inspection. ABSENT: deformity Neurological exam: PRESENT: alert, awake, oriented to person, oriented to place, oriented to time, oriented to situation Psychiatric exam: PRESENT: unusual affect Skin exam: PRESENT: dry, warm Results Laboratory Results: 04/22/18 06:34 04/23/18 06:11 04/23/18 06:11 Sodium 140.8 Potassium 3.3 L Chloride 109 H Carbon Dioxide 24 Anion Gap 8 BUN 5 L Creatinine 0.74 Est GFR ( Amer) > 60 Est GFR (Non-Af Amer) > 60 Glucose 105 Calcium 8.9 04/19/18 18:28 Thigh - Right Side Abscess Gram Stain - Final 04/19/18 18:28 Thigh - Right Side Abscess Wound Culture - Final Staphylococcus Haemolyticus Staphylococcus Epidermidis Peptostreptococcus Species 04/19/18 18:29 Thigh - Right Side Abscess Gram Stain - Final 04/21/18 04/21/18 07:06 07:06 Creatine Kinase 51 CK-MB (CK-2) 0.99 Troponin I < 0.012 Assessment & Plan - Diagnosis (1) Cellulitis and abscess of right leg Is this a current diagnosis for this admission?: Yes Plan: Based on the results of her wound culture, and a have to get a PICC line and treat her with vancomycin for about 10 more days. She will continue with the wound VAC at home. PICC line has been ordered as well as a discharge planning consult. - Time Time Spent with patient: 25-34 minutes
--- NOTE | 2018-04-23 16:19 | RADIOLOGY REPORT (SQ) ---
EXAM DESCRIPTION: PICC INSERTION; FLUORO/CV PLACEMENT; U/S GUIDE FOR VASCULAR ACCESS COMPLETED DATE/TIME: 04/23/2018 3:19 pm REASON FOR STUDY: iv access for home antibiotics; IV ACCESS FOR HOME ANTIBIOTICS COMPARISON: Two-view chest 08/21/2016 FLUOROSCOPY TIME: 44 seconds 1 ultrasound and 1 digital fluoroscopic images saved to PACS. TECHNIQUE: Fluoroscopic and ultrasound guided PICC placement. LIMITATIONS: None. PROCEDURE: After written consent and assessment were obtained, the patient was brought into the fluo roscopy room and placed supine on the table. Ultrasound evaluation of potential access sites were per formed. After successfully identifying a patent right basilic vein, the right arm was prepped and jonathan ped in a sterile fashion along with the ultrasound probe. The entry site was anesthetized with 1% lid ocaine. A 21 gauge 7 cm needle was advanced through the skin and into the basilic vein under live ult rasound guidance. An ultrasound image was saved to PACS confirming access site. A .018 guide wire w as then inserted through the needle and into the venous system. The needle was then removed and an 11 blade scalpel was used to make a 1cm skin incision. A 5 fr peel-away sheath was advanced over the w yoana and into the venous system. A measurement was then made using the existing wire and live fluorosc opic guidance. The wire was then removed and trimmed. The PICC was advanced through the peel-away she ath and into the venous system. The peel-away sheath was removed and the catheter was adhered to the patients arm with a stat lock. The catheter was then aspirated and flushed and a sterile bandage was placed over the access site. A fluoroscopic spot image was saved to PACS confirming the catheter tip within the superior vena cava. IMPRESSION: SUCCESSFUL PLACEMENT OF A 5 FR DUAL LUMEN 39 CM PICC IN THE RIGHT BASILIC VEIN. COMMENT: Patient medication list reviewed: Yes- Quality ID# 130:Eligible professional attests to doc umenting in the medical record they obtained, updated, or reviewed the patient's current medications. . Quality ID 145: Final reports for procedures using fluoroscopy that document radiation exposure hailey farshad, or exposure time and number of fluorographic images (if radiation exposure indices are not avail able) Quality ID #76: The patient was prepped and draped using maximum sterile barrier technique including cap, mask, sterile gown, sterile gloves, a large sterile sheet, hand hygiene, and 2% Chlorhexidine fo r cutaneous antisepsis. When ultrasound is used, sterile ultrasound techniques are followed requiring sterile gel and sterile probes. TECHNICAL DOCUMENTATION: JOB ID: [id number] [employer]- All Rights Reserved rev-08/15 Reading location - IP/workstation name: [facility]
[2018-04-23] MEDS ORDERED: NORMAL SALINE 10 ML SDV (AFTER EACH USE) IV PRN (22:30)
[2018-04-23] MEDS: ATORVASTATIN CALCIUM 80 MG TABLET PO SCH (22:47)
[2018-04-24] MEDS: HYDROCODONE/ACETAMINOPHEN 5-325 MG TABLET PO PRN ×3 (04:09→15:43)
[2018-04-24] MEDS: LANSOPRAZOLE 30 MG TAB.RAP.DR PO SCH (06:24)
[2018-04-24 07:08] LABS: HEMATOCRIT 34.7 % (36.0-47.0); HEMOGLOBIN 11.9 g/dL (12.0-15.5); MEAN CORPUSCULAR HEMOGLOBIN 33.5 pg (27.0-33.4); MEAN CORPUSCULAR HGB CONC 34.2 g/dL (32.0-36.0); MEAN CORPUSCULAR VOLUME 98 fl (80-97); PLATELET COUNT 239 10^3/uL (150-450); RED BLOOD COUNT 3.55 10^6/uL (3.72-5.28); WHITE BLOOD COUNT 9.3 10^3/uL (4.0-10.5)
[2018-04-24 07:32] LABS: ANION GAP 6 (5-19); BLOOD UREA NITROGEN 6 mg/dL (7-20); CALCIUM 8.8 mg/dL (8.4-10.2); CARBON DIOXIDE 24 mmol/L (22-30); CHLORIDE 111 mmol/L (98-107); GLUCOSE 122 mg/dL (75-110); POTASSIUM 3.7 mmol/L (3.6-5.0); SODIUM 140.7 mmol/L (137-145)
[2018-04-24] MEDS ORDERED: NORMAL SALINE 10 ML SDV (SCHEDULED) IV SCH (10:00)
[2018-04-24] MEDS: DOCUSATE SODIUM 100 MG CAPSULE PO SCH (10:35)
[2018-04-24] MEDS: ASPIRIN 81 MG TABLET, ENT COATED PO SCH (10:36)
[2018-04-24] MEDS: FAMOTIDINE INJ/PF 20 MG/2 ML SDV IV SCH (10:38)
[2018-04-24] MEDS: LISINOPRIL 5 MG TABLET PO SCH (10:39)
[2018-04-24] MEDS: CLOPIDOGREL BISULFATE 75 MG TABLET PO SCH (10:39)
[2018-04-24] MEDS: TIOTROPIUM BROMIDE DPI 5 CAP/KIT (18 MCG/CAP) IH SCH (10:40)
[2018-04-24] MEDS: MULTIVITAMIN TABLET PO SCH (10:41)
[2018-04-24] MEDS: METOPROLOL SUCCINATE 25 MG TAB.SR.24H PO SCH (10:41)
[2018-04-24] MEDS: VANCOMYCIN HCL 1,000 MG in DEXTROSE 5%-WATER 250 ML IV SCH (10:45)
[2018-04-24] MEDS: PROMETHAZINE HCL INJ 25 MG/1 ML VIAL IV PRN (11:00)
[2018-04-24 14:48] VITALS: BP 129/64
--- NOTE | 2018-04-24 16:16 | PDOC DISCHARGE SUMMARY ---
General - Admit/Disc Date/PCP Admission Date/Primary Care Provider: 04/19/18 14:13 THIEN DUCKWORTH MD Discharge Date: 04/24/18 - Discharge Diagnosis (1) Cellulitis and abscess of right leg Is this a current diagnosis for this admission?: Yes Summary: Grew out multiple organisms, we will have to treat with IV vancomycin based on sensitivities. She did get a wound VAC on that leg and will follow up outpatient with general surgery. - Additional Information Resuscitation Status: Full Code Discharge Diet: Cardiac Discharge Activity: Activity As Tolerated, Balance Activity w/Rest, No tub bath, Other Prescriptions: Hydrocodone/Acetaminophen [[place] 5-325 mg Tablet] 1 tab PO Q4HP PRN #20 tablet PRN Reason: Vancomycin HCl [Vancocin Inj 1000 mg Vial] 1,000 mg IV Q12 #20 vial Home Medications: Albuterol Sulfate [Proair HFA Inhalation Aerosol 8.5 gm MDI] 2 puff IH Q4 PRN 04/19/18 Aspirin [Adult Aspirin] 81 mg PO DAILY 04/19/18 Atorvastatin Calcium [Lipitor 80 mg Tablet] 80 mg PO QHS 04/19/18 Cariprazine HCl [Vraylar] 6 mg PO DAILY 04/19/18 Clopidogrel Bisulfate [Plavix 75 mg Tablet] 75 mg PO DAILY 04/19/18 Lisinopril [Prinivil 2.5 mg Tablet] 2.5 mg PO DAILY 04/19/18 Metoprolol Succinate [Toprol Xl] 25 mg PO DAILY 04/19/18 Multivitamin [Daily Multiple Vitamin] 1 each PO DAILY 04/19/18 Tiotropium [place] [Spiriva [place] 5 Cap/Kit (18 Mcg/Cap)] 1 cap IH DAILY 04/19/18 Cyanocobalamin (Vitamin B-12) [Vitamin B-12 500 mcg Tablet] 500 mcg PO DAILY 04/22/18 Gabapentin [Neurontin 300 mg Capsule] 300 mg PO TID 04/22/18 Multivit-Min/Iron/Folic/Lutein [Centrum Silver Women Tablet] 1 each PO DAILY 04/22/18 Pyridoxine HCl [Vitamin B-6] 100 mg PO DAILY 04/22/18 Vitamin B Complex/Folic Acid [Vitamin B-50 Complex Tablet] 0.4 mg PO DAILY 04/22/18 Hydrocodone/Acetaminophen [[place] 5-325 mg Tablet] 1 tab PO Q4HP PRN #20 tablet 04/24/18 Vancomycin HCl [Vancocin Inj 1000 mg Vial] 1,000 mg IV Q12 #20 vial 04/24/18 History of Present Illness History of Present Illness: SIMON WILLIAM is a 63 year old female who was admitted with an abscess of her right thigh. She had pain redness and swelling. She was put on IV antibiotics and surgery was consulted. Hospital Course Hospital Course: She had I&D and has had placement of a wound VAC. She will follow-up outpatient with surgery. Should get home health for wound VAC. Because of her culture results, we elected to put her on IV vancomycin for 10 more days for total of 14 days of antibiotics. She got a PICC line placed and home health was set up. Her labs and examination were reassuring and she was discharged in good condition. Physical Exam Vital Signs: Temp Pulse Resp BP Pulse Ox 98.8 F 85 18 129/64 H 100 04/24/18 14:58 04/24/18 14:58 04/24/18 14:58 04/24/18 14:58 04/24/18 14:58 Intake & Output 04/23/18 04/24/18 04/25/18 06:59 06:59 06:59 Intake Total 1722 2298 250 Balance 1722 2298 250 Weight 69.9 kg 69.6 kg General appearance: PRESENT: no acute distress, cooperative, disheveled Respiratory exam: PRESENT: clear to auscultation paul, symmetrical, unlabored. ABSENT: accessory muscle use, prolonged expiratory phas, rales, rhonchi, tachypnea, wheezes Cardiovascular exam: PRESENT: RRR, +S1, +S2 GI/Abdominal exam: PRESENT: normal bowel sounds, soft. ABSENT: distended, guarding, rebound, tenderness Extremities exam: PRESENT: other - The abscess area on her right thigh has a wound VAC dressing. ABSENT: clubbing, pedal edema Musculoskeletal exam: PRESENT: normal inspection. ABSENT: deformity Neurological exam: PRESENT: alert, awake, oriented to person, oriented to place, oriented to time, oriented to situation Psychiatric exam: PRESENT: unusual affect Skin exam: PRESENT: dry, warm Results Laboratory Results: 04/24/18 06:39 04/24/18 06:39 01/25/19 01/25/19 01/25/19 06:39 06:39 12:20 WBC 9.3 RBC 3.55 L Hgb 11.9 L Hct 34.7 L MCV 98 H MCH 33.5 H MCHC 34.2 RDW 14.0 Plt Count 239 Sodium 140.7 Potassium 3.7 Chloride 111 H Carbon Dioxide 24 Anion Gap 6 BUN 6 L Creatinine 0.94 Est GFR ( Amer) > 60 Est GFR (Non-Af Amer) > 60 Glucose 122 H Calcium 8.8 Stool Occult Blood NEGATIVE 04/19/18 12:43 Blood Blood Culture - Final NO GROWTH IN 5 DAYS 04/19/18 11:37 Blood Blood Culture - Final NO GROWTH IN 5 DAYS 04/19/18 18:29 Thigh - Right Side Abscess Gram Stain - Final 04/19/18 18:29 Thigh - Right Side Abscess Wound Culture - Final Staphylococcus Schleiferi Peptostreptococcus Species 04/19/18 18:28 Thigh - Right Side Abscess Gram Stain - Final 04/19/18 18:28 Thigh - Right Side Abscess Wound Culture - Final Staphylococcus Haemolyticus Staphylococcus Epidermidis Peptostreptococcus Species 04/21/18 04/21/18 07:06 07:06 Creatine Kinase 51 CK-MB (CK-2) 0.99 Troponin I < 0.012 Impressions: Guidance Fluoroscopy 04/23/18 00:00 IMPRESSION: SUCCESSFUL PLACEMENT OF A 5 FR DUAL LUMEN 39 CM PICC IN THE RIGHT BASILIC VEIN. Interventional Vascular Procedure 04/23/18 00:00 IMPRESSION: SUCCESSFUL PLACEMENT OF A 5 FR DUAL LUMEN 39 CM PICC IN THE RIGHT BASILIC VEIN. PICC Line Insertion 04/23/18 00:00 IMPRESSION: SUCCESSFUL PLACEMENT OF A 5 FR DUAL LUMEN 39 CM PICC IN THE RIGHT BASILIC VEIN. Qualifiers - * PATIENT BEING DISCHARGED WITH ANY OF THE FOLLOWING DIAGNOSIS: No
== END 2018-04-24 16:45 | disposition home health service (06) | DRG 572 ==
LOC: ER 10:10 → EH 14:13 → 3W 20:00 → 2S 04-21 20:04
PROVIDERS: ADMIT Internal Medicine; ATTEND Internal Medicine
PROC: 0JBL0ZZ Excision of Right Upper Leg Subcutaneous Tissue and Fascia, Open Approach (ICD-10-PCS; principal; 2018-04-19 18:00)
PROC: 02HV33Z Insertion of Infusion Device into Superior Vena Cava, Percutaneous Approach (ICD-10-PCS; 2018-04-23)
PROC: B518ZZA Fluoroscopy of Superior Vena Cava, Guidance (ICD-10-PCS; 2018-04-23)
PROC: B548ZZA Ultrasonography of Superior Vena Cava, Guidance (ICD-10-PCS; 2018-04-23)
DX: L03.115 Cellulitis of right lower limb (principal); L02.415 Cutaneous abscess of right lower limb; J44.9 Chronic obstructive pulmonary disease, unspecified; I10 Essential (primary) hypertension; F41.8 Other specified anxiety disorders; F31.9 Bipolar disorder, unspecified; F17.210 Nicotine dependence, cigarettes, uncomplicated; B95.7 Other staphylococcus as the cause of diseases classified elsewhere; B96.89 Other specified bacterial agents as the cause of diseases classified elsewhere; Z79.01 Long term (current) use of anticoagulants; Z95.5 Presence of coronary angioplasty implant and graft; Z79.82 Long term (current) use of aspirin; Z79.51 Long term (current) use of inhaled steroids; Z79.899 Other long term (current) drug therapy
CPT/HCPCS: 1250; 36415; 36569; 76937; 77001; 80048; 80053; 80202; 81001; 82272; 82550; 82553; 82962; 83735; 84100; 84484; 85025; 85027; 87040; 87070; 87075; 87077; 87186; 87205; 93005; 93010; 94799; 96365; 96375; 99283; 99284; C1769; J0330; J1642; J1650; J2250; J2270; J2405; J2543; J2550; J2704; J3010; J3370; J3490; J7030; J7060; S0028

== ENCOUNTER 2018-05-03 19:43 | Emergency (ER) | payer MEDICARE, MEDICAID ==
[2018-05-03] MEDS ORDERED: VANCOMYCIN HCL INJ 1000 MG VIAL IV ONE (20:11)
--- NOTE | 2018-05-03 20:19 | ER Document Report ---
ED General - General Stated Complaint: PIC LINE GONE Time Seen by Provider: 05/03/18 19:52 Primary Care Provider: THIEN DUCKWORTH MD [Primary Care Provider] - Follow up as needed Notes: Patient is a 63-year-old female currently receiving vancomycin through a PICC line for chronic right leg abscess with associated cellulitis who presents after the PICC line became dislodged. Patient states she does not know where it has gone. She is due for her evening dose of 1000 mg of vancomycin. Denies any additional concerns. States that it happened sometime within the last 12 hours. TRAVEL OUTSIDE OF THE [place] IN LAST 30 DAYS: No - Related Data Allergies/Adverse Reactions: alprazolam [From Xanax] Allergy (Verified 04/18/18 09:21) citalopram hydrobromide [From Celexa] Allergy (Verified 04/18/18 09:21) dextromethorphan HBr [From NyQuil] Allergy (Verified 04/18/18 09:21) doxylamine [From NyQuil] Allergy (Verified 04/18/18 09:21) fluoxetine HCl [From Prozac] Allergy (Verified 04/18/18 09:21) pseudoephedrine HCl [From NyQuil] Allergy (Verified 04/18/18 09:21) trazodone [Trazodone] Allergy (Verified 04/18/18 09:21) antidepressants Adverse Reaction (Uncoded 04/18/18 09:21) Hallucinations Past Medical History - General Information source: Patient - Social History Smoking Status: Current Every Day Smoker Frequency of alcohol use: None Drug Abuse: None Lives with: Friend Family History: Reviewed & Not Pertinent - Past Medical History Cardiac Medical History: Reports: Hx Hypertension Denies: Hx Coronary Artery Disease, Hx Heart Attack Pulmonary Medical History: Reports: Hx Asthma, Hx Bronchitis, Hx COPD, Hx Pneumonia Denies: Hx Tuberculosis Neurological Medical History: Reports: Hx Migraine. Denies: Hx Cerebrovascular Accident Renal/ Medical History: Denies: Hx Peritoneal Dialysis Malignancy Medical History: Reports: Hx Cervical Cancer GI Medical History: Reports: Hx Cirrhosis, Hx Gastritis Musculoskeletal Medical History: Denies Hx Arthritis, Reports Hx Muscle Weakness, Reports Hx Musculoskeletal Trauma Psychiatric Medical History: Reports: Hx Anxiety, Hx Bipolar Disorder, Hx Depression Traumatic Medical History: Reports: Hx Fractures Past Surgical History: Reports: Hx Section - x3, Hx Gynecologic Surgery - cervical dysplasia, Hx Tonsillectomy. Denies: Hx Pacemaker - Immunizations Immunizations up to date: Yes Hx Diphtheria, Pertussis, Tetanus Vaccination: Yes Review of Systems - Review of Systems Notes: Constitutional: Negative for fever. HENT: Negative for sore throat. Eyes: Negative for visual changes. Cardiovascular: Negative for chest pain. Respiratory: Negative for shortness of breath. Gastrointestinal: Negative for abdominal pain, vomiting or diarrhea. Genitourinary: Negative for dysuria. Musculoskeletal: Negative for back pain. Skin: Positive for chronic right leg infection Neurological: Negative for headaches, weakness or numbness. 10 point ROS negative except as marked above and in HPI. Physical Exam - Vital signs Notes: PHYSICAL EXAMINATION: GENERAL: Well-appearing, well-nourished and in no acute distress. HEAD: Atraumatic, normocephalic. EYES: Pupils equal round and reactive to light, extraocular movements intact, sclera anicteric, conjunctiva are normal. ENT: nares patent, oropharynx clear without exudates. Moist mucous membranes. NECK: Normal range of motion, supple without lymphadenopathy LUNGS: Breath sounds clear to auscultation bilaterally and equal. No wheezes rales or rhonchi. HEART: Regular rate and rhythm without murmurs ABDOMEN: Soft, nontender, normoactive bowel sounds. No guarding, no rebound. No masses appreciated. EXTREMITIES: Normal range of motion, no pitting or edema. No cyanosis. NEUROLOGICAL: No focal neurological deficits. Moves all extremities spontaneously and on command. PSYCH: Moderately anxious SKIN: Warm, Dry, normal turgor, bruising over the right brachial vein region and no evidence of any retained PICC line fragment Course - Re-evaluation Re-evalutation: 05/03/18 20:16 Patient presents with concerns of her PICC line has been dislodged. Patient is receiving vancomycin for a right leg cellulitis and abscess. She has been given her nighttime dose of 1000 mill grams of vancomycin and will be discharged home with a peripheral IV in place so that she can receive her doses for the next 48 hours. I have clearly informed the patient that this IV can only be used for the next 2 days and that she needs to have her PICC line replaced urgently. At this time will discharge with return precautions and follow-up recommendations. Verbal discharge instructions given a the bedside and opportunity for questions given. Medication warnings reviewed. Patient is in agreement with this plan and has verbalized understanding of return precautions and the need for primary care follow-up in the next 24 hours. - Diagnostic Test Radiology reviewed: Image reviewed, Reports reviewed Radiology results interpreted by me: 05/03/18 20:17 Chest x-ray: No evidence of PICC line presents. Discharge - Discharge Clinical Impression: Cellulitis and abscess of right leg, S/P PICC central line placement Condition: Stable Disposition: HOME, SELF-CARE Additional Instructions: You have been given a dose of vancomycin here in the emergency department. You need to contact your home health agency regarding her PICC line becoming detached and lost as this will need to be placed. We have given you a pe ripheral IV which can be used for your antibiotics for up to 48 hours. Your chest x-ray does not show any remnants of the PICC line. Referrals: THIEN DUCKWORTH MD [Primary Care Provider] - Follow up tomorrow
--- NOTE | 2018-05-03 20:55 | RADIOLOGY REPORT (SQ) ---
EXAM DESCRIPTION: XR CHEST 1 VIEW COMPLETED DATE/TME: 05/03/2018 20:11 CLINICAL HISTORY: 63 years, Female, picc line missing Findings: Heart is not enlarged. No consolidation or pleural effusion. No pulmonary edema or pneumothorax. No central line is identified. IMPRESSION: No acute disease.
[2018-05-03 22:02] VITALS: BP 166/80
== END 2018-05-03 21:16 | disposition home or self-care (01) ==
LOC: ER 19:43
DX: L03.115 Cellulitis of right lower limb (principal); T82.7XXA Infection and inflammatory reaction due to other cardiac and vascular devices, implants and grafts, initial encounter; X58.XXXA Exposure to other specified factors, initial encounter; I10 Essential (primary) hypertension; F17.200 Nicotine dependence, unspecified, uncomplicated
CPT/HCPCS: 71045; 99283

== ENCOUNTER 2018-10-20 15:42 | Emergency (ER) | payer MEDICARE, MEDICAID ==
--- NOTE | 2018-10-20 17:05 | RADIOLOGY REPORT (SQ) ---
EXAM DESCRIPTION: SHOULDER RIGHT 2 OR MORE VIEWS COMPLETED DATE/TIME: 10/20/2018 4:57 pm REASON FOR STUDY: BED 18 RIGHT SHOULDER +DEFORMITY +TENDER COMPARISON: None. NUMBER OF VIEWS: Two views. TECHNIQUE: Frontal and lateral images acquired of the right shoulder. LIMITATIONS: None. FINDINGS: MINERALIZATION: Normal. BONES: Comminuted fracture of the humeral head. JOINTS: No dislocation. VISUALIZED LUNGS AND RIBS: No pneumothorax. No rib fracture. SOFT TISSUES: No radiopaque foreign body. OTHER: No other significant finding. IMPRESSION: Comminuted humeral head fracture. TECHNICAL DOCUMENTATION: JOB ID: [id number] [employer]- All Rights Reserved Reading location - IP/workstation name: [email or web address]
--- NOTE | 2018-10-20 17:06 | RADIOLOGY REPORT (SQ) ---
EXAM DESCRIPTION: FOREARM RIGHT COMPLETED DATE/TIME: 10/20/2018 4:57 pm REASON FOR STUDY: fell on right arm, pain forearm and elbow COMPARISON: None. NUMBER OF VIEWS: Two views. TECHNIQUE: Two radiographic images acquired of the right forearm, including elbow and wrist in at le ast one projection. LIMITATIONS: None. FINDINGS: MINERALIZATION: Normal. BONES: No acute fracture. No worrisome bone lesions. SOFT TISSUES: No obvious swelling or foreign body. OTHER: No other significant finding. IMPRESSION: NEGATIVE STUDY OF THE RIGHT FOREARM. NO RADIOGRAPHIC EVIDENCE OF ACUTE INJURY. TECHNICAL DOCUMENTATION: JOB ID: [id number] [employer]- All Rights Reserved Reading location - IP/workstation name: [email or web address]
--- NOTE | 2018-10-20 17:06 | RADIOLOGY REPORT (SQ) ---
EXAM DESCRIPTION: ELBOW RIGHT AP/LAT COMPLETED DATE/TIME: 10/20/2018 4:57 pm REASON FOR STUDY: fell on right arm, pain forearm and elbow COMPARISON: None. NUMBER OF VIEWS: Two views. TECHNIQUE: AP and lateral radiographic images acquired of the right elbow. LIMITATIONS: None. FINDINGS: MINERALIZATION: Normal. BONES: No acute fracture or dislocation. No worrisome bone lesions. JOINT: No effusion. SOFT TISSUES: No soft tissue swelling. No foreign body. OTHER: No other significant finding. IMPRESSION: NEGATIVE STUDY OF THE RIGHT ELBOW. NO RADIOGRAPHIC EVIDENCE OF ACUTE INJURY. TECHNICAL DOCUMENTATION: JOB ID: [id number] [employer]- All Rights Reserved Reading location - IP/workstation name: [email or web address]
[2018-10-20] MEDS ORDERED: OXYCODONE-ACETAMINOPHEN 5-325 MG TABLET PO ONE (17:20)
[2018-10-20 18:25] VITALS: BP 126/84
--- NOTE | 2018-10-20 19:14 | ER Document Report ---
Entered by JOHN CHAPPELL SCRIBE 10/20/18 [id number] Acting as scribe for:MESFIN IRIZARRY DO ED General - General Chief Complaint: Shoulder Injury Stated Complaint: SHOULDER PAIN Time Seen by Provider: 10/20/18 15:47 Primary Care Provider: YUVAL COBURN MD [ACTIVE STAFF] - Follow up in 1 week (Call tomorrow morning to arrange a follow-up appointment.) Notes: Patient is a 63-year-old female male arriving via EMS presenting to the emergency department after a fall. Patient states that she tripped over something, she was landed on her right shoulder. Patient states that she is having right elbow pain radiating up to her right shoulder. Patient states that EMS gave her fentanyl 100mics it helped minimally, alleviated her anxiety. Patient denies having any other pain, hitting her head or having neck pain. TRAVEL OUTSIDE OF THE [place] IN LAST 30 DAYS: No - Related Data Allergies/Adverse Reactions: alprazolam [From Xanax] Allergy (Verified 04/18/18 09:21) citalopram hydrobromide [From Celexa] Allergy (Verified 04/18/18 09:21) dextromethorphan HBr [From NyQuil] Allergy (Verified 04/18/18 09:21) doxylamine [From NyQuil] Allergy (Verified 04/18/18 09:21) fluoxetine HCl [From Prozac] Allergy (Verified 04/18/18 09:21) pseudoephedrine HCl [From NyQuil] Allergy (Verified 04/18/18 09:21) trazodone [Trazodone] Allergy (Verified 04/18/18 09:21) antidepressants Adverse Reaction (Uncoded 04/18/18 09:21) Hallucinations Past Medical History - General Information source: Patient - Social History Smoking Status: Current Some Day Smoker Cigarette use (# per day): Yes Chew tobacco use (# tins/day): No Frequency of alcohol use: None Drug Abuse: None Family History: Reviewed & Not Pertinent - Past Medical History Cardiac Medical History: Reports: Hx Hypertension Pulmonary Medical History: Reports: Hx Asthma, Hx Bronchitis, Hx COPD, Hx Pneumonia Neurological Medical History: Reports: Hx Migraine Malignancy Medical History: Reports: Hx Cervical Cancer GI Medical History: Reports: Hx Cirrhosis, Hx Gastritis Musculoskeletal Medical History: Reports Hx Muscle Weakness, Reports Hx Musculoskeletal Trauma Psychiatric Medical History: Reports: Hx Anxiety, Hx Bipolar Disorder, Hx Depression Traumatic Medical History: Reports: Hx Fractures Past Surgical History: Reports: Hx Section - x3, Hx Gynecologic Surgery - cervical dysplasia, Hx Tonsillectomy - Immunizations Immunizations up to date: Yes Hx Diphtheria, Pertussis, Tetanus Vaccination: Yes Review of Systems - Review of Systems Constitutional: No symptoms reported EENT: No symptoms reported Cardiovascular: No symptoms reported Respiratory: No symptoms reported Gastrointestinal: No symptoms reported Genitourinary: No symptoms reported Female Genitourinary: No symptoms reported Musculoskeletal: See HPI, Other - Right shoulder pain, right elbow pain Skin: No symptoms reported Hematologic/Lymphatic: No symptoms reported Neurological/Psychological: No symptoms reported -: Yes All other systems reviewed and negative Physical Exam - Notes Notes: PHYSICAL EXAM GENERAL: Alert, interacts well. No acute distress. HEAD: Normocephalic, atraumatic. EYES: Pupils equal, round, and reactive to light. Extraocular movements intact. ENT: Oral mucosa moist, tongue midline. NECK: Full range of motion. Supple. Trachea midline. LUNGS: Clear to auscultation bilaterally, no wheezes, rales, or rhonchi. No r espiratory distress. HEART: Regular rate and rhythm. No murmurs, gallops, or rubs. ABDOMEN: Soft, non-tender. Non-distended. Bowel sounds present in all 4 quadrants. No guarding, rigidity, or rebound. EXTREMITIES: Right elbow tenderness to palpation. Proximal forearm tenderness to palpation. Humerus tenderness to palpation. Glenohumeral joint tenderness to palpation. Moves right hand without difficulty, shoulder immobilized in a sling at this time. No edema, radial and dorsalis pedis pulses 2/4 bilaterally. No cyanosis. NEUROLOGICAL: Alert and oriented x3. Normal speech. PSYCH: Normal affect, normal mood. SKIN: Warm, dry, normal turgor. No rashes or lesions noted. Course - Re-evaluation Re-evalutation: 10/20/18 17:22 XRays reveal comminuted humeral head fracture, no abnormality of forearm or elbow. Placed in shoulder immobilizer, referred to Dr. Coburn for outpatient follow-up. Verbally discussed on the phone with Dr. Coburn to confirm availability of outpatient follow-up. Discharged home. Procedures - Immobilization Right shoulder Pre-Proc Neuro Vasc Exam: Normal Immobilizer type: Shoulder immobilizer Performed by: PCT Post-Proc Neuro Vasc Exam: Normal, Unchanged from pre-exam Alignment checked and good: Yes Discharge - Discharge Clinical Impression: Fracture of humeral head, right, closed Qualifiers: Encounter type: initial encounter Qualified Code(s): S42.291A - Other displaced fracture of upper end of right humerus, initial encounter for closed fracture Fall Qualifiers: Encounter type: initial encounter Qualified Code(s): W19.XXXA - Unspecified fall, initial encounter Condition: Stable Disposition: HOME, SELF-CARE Additional Instructions: Fracture Proximal Humerus There is a fracture at the upper end of the humerus, near the shoulder joint. Your physician has assessed the fracture's severity and has determined that it will heal well without surgery or "setting." The typical shoulder fracture doesn't need a cast. It's best treated by binding the arm down with a special sling. Ice packs are used to reduce pain and swelling. After early healing has occurred, [id number] exercises are prescribed for the shoulder. Complete healing may take three to six weeks, depending on the age of the patient and the severity of the fracture. Call the doctor or return at once if the arm becomes numb, or if pain or swelling become severe. Please follow-up with Dr. Coburn as an outpatient. Please dissolve 1 scoop of MiraLAX (or generic equivalent) in a glass of water once a day to prevent constipation while on these pain medications. Do not drive or operate heavy machinery while taking these pain medications. Prescriptions: Hydrocodone/Acetaminophen [[place] 5-325 mg Tablet] 1 tab PO Q4HP PRN #14 tablet PRN Reason: Referrals: YUVAL COBURN MD [ACTIVE STAFF] - Follow up in 1 week (Call tomorrow morning to arrange a follow-up appointment.) I personally performed the services described in the documentation, reviewed and edited the documentation which was dictated to the scribe in my presence, and it accurately records my words and actions.
== END 2018-10-20 18:30 | disposition home or self-care (01) ==
LOC: ER 15:42
DX: S42.293A Other displaced fracture of upper end of unspecified humerus, initial encounter for closed fracture (principal); W01.0XXA Fall on same level from slipping, tripping and stumbling without subsequent striking against object, initial encounter; Y92.009 Unspecified place in unspecified non-institutional (private) residence as the place of occurrence of the external cause; M25.521 Pain in right elbow; F17.210 Nicotine dependence, cigarettes, uncomplicated; I10 Essential (primary) hypertension; J44.9 Chronic obstructive pulmonary disease, unspecified; Z88.8 Allergy status to other drugs, medicaments and biological substances; M25.511 Pain in right shoulder
CPT/HCPCS: 99283; 73070; 73090; 73030; L3650; A9270

== ENCOUNTER → 2019-03-03 | Outpatient (CLI) | payer MEDICARE, MEDICAID ==
--- NOTE | 2019-03-03 15:15 | RADIOLOGY REPORT (SQ) ---
EXAM DESCRIPTION: SHOULDER RIGHT 2 OR MORE VIEWS COMPLETED DATE/TIME: 03/03/2019 2:27 pm REASON FOR STUDY: UNSP FRACTURE OF SHAFT OF HUMERUS, RIGHT ARM, INIT (S42.301A) S42.301A UNSP FRACT URE OF SHAFT OF HUMERUS, RIGHT ARM, INIT COMPARISON: 10/20/2018 NUMBER OF VIEWS: Three views. TECHNIQUE: Internal rotation, external rotation, and Y view images acquired of the right shoulder. LIMITATIONS: None. FINDINGS: MINERALIZATION: Normal. BONES: Since the previous examination, callus formation is suggested at the humeral head fracture si te. The humeral head is displaced, rotated medially and inferiorly. Increase in the acromial humeral distance may be related to underlying JOINTS: See above. VISUALIZED LUNGS AND RIBS: No pneumothorax. No rib fracture. SOFT TISSUES: No radiopaque foreign body. OTHER: No other significant finding. IMPRESSION: 1. Since the previous examination dated 10/20/2018, callus formation at the humeral head fracture site. The humeral head is displaced and rotated inferior medially new finding. Correlatio n suggested. TECHNICAL DOCUMENTATION: JOB ID: [id number] [employer]- All Rights Reserved Reading location - IP/workstation name: [email or web address]
== END ==
LOC: RAD 13:46
PROVIDERS: ATTEND Nurse Practitioner Primary Care
DX: S42.301A Unspecified fracture of shaft of humerus, right arm, initial encounter for closed fracture (principal); X58.XXXA Exposure to other specified factors, initial encounter; Y93.9 Activity, unspecified; Y92.9 Unspecified place or not applicable

== ENCOUNTER 2019-03-26 14:57 | Emergency (ER) | payer MEDICARE, MEDICAID ==
--- NOTE | 2019-03-26 16:03 | ER Document Report ---
HPI - HPI Patient complains to provider of: chronic pain for shoulder Time Seen by Provider: 03/26/19 15:57 Onset: Other - october 20 Onset/Duration: Persistent Quality of pain: Sharp Severity: Moderate Pain Level: 3 Context: 64-year-old female presented to ED for being out of her medications. She is on chronic pain management for her fractured shoulder that she fractured in September. She states the doctor was not in this week and she was not able to get into get her medication. She states she has an appointment with chronic pain management on April 21. I have informed her we cannot give her pain medicine to go home she will need to get an appointment with her primary doctor I will give her 1 pain medicine while she is in the emergency room and she needs to use Tylenol or Motrin until she can get into a primary care or a urgent care. Associated Symptoms: Other - Chronic pain right shoulder Exacerbated by: Movement Relieved by: Denies Similar symptoms previously: Yes Recently seen / treated by doctor: Yes - ROS ROS below otherwise negative: Yes - CONSTITUTIONAL Constitutional: DENIES: Fever, Chills - EENT EENT: DENIES: Sore Throat, Ear Pain, Nasal Drainage-Clear, Nasal Drainage- Purulent, Congestion, Eye problems - NEURO Neurology: DENIES: Headache, Weakness, Vision blurred, Dizzinesss / Vertigo - CARDIOVASCULAR Cardiovascular: DENIES: Chest pain - RESPIRATORY Respiratory: DENIES: Trouble Breathing, Coughing - GASTROINTESTINAL Gastrointestinal: DENIES: Abdominal Pain, Nausea, Patient vomiting, Diarrhea, Constipation, Black / Bloody Stools - URINARY Urinary: DENIES: Dysuria, Urgency, Frequency - REPRODUCTIVE Reproductive: DENIES: :, Postmenopausal, Abnormal bleeding / discharge - MUSCULOSKELETAL Musculoskeletal: REPORTS: Extremity pain - Right shoulder. DENIES: Back Pain, Neck Pain, Swelling - DERM Skin Color: Normal Skin Problems: None Past Medical History - General Information source: Patient - Social History Smoking Status: Current Every Day Smoker - Pack a day Cigarette use (# per day): Yes Smoking Education Provided: Yes - 4 min Frequency of alcohol use: Heavy - Couple beer every 3 few days Drug Abuse: None Lives with: Friend Family History: Reviewed & Not Pertinent Patient has suicidal ideation: No Patient has homicidal ideation: No - Past Medical History Cardiac Medical History: Reports: Hx Heart Attack, Hx Hypercholesterolemia, Hx Hypertension Pulmonary Medical History: Reports: Hx Asthma, Hx Bronchitis, Hx COPD, Hx Pneumonia Denies: Hx Tuberculosis EENT Medical History: Reports: None Neurological Medical History: Reports: Hx Migraine Endocrine Medical History: Reports: None Renal/ Medical History: Reports: None Malignancy Medical History: Reports: Hx Cervical Cancer GI Medical History: Reports: Hx Cirrhosis, Hx Gastritis Musculoskeletal Medical History: Reports Hx Muscle Weakness, Reports Hx Musculoskeletal Trauma Skin Medical History: Reports None Psychiatric Medical History: Reports: Hx Anxiety, Hx Bipolar Disorder, Hx Depression Traumatic Medical History: Reports: Hx Fractures - Right shoulder Infectious Medical History: Reports: None Past Surgical History: Reports: Hx Cardiac Catheterization, Hx Section - x3, Hx Coronary Stent, Hx Gynecologic Surgery - cervical dysplasia, Hx Tonsillectomy, Other - Abscess to the leg with wound VAC after surgery - Immunizations Immunizations up to date: Yes Hx Diphtheria, Pertussis, Tetanus Vaccination: Yes Vertical Provider Document - CONSTITUTIONAL Agree With Documented VS: Yes Exam Limitations: No Limitations General Appearance: WD/WN - INFECTION CONTROL TRAVEL OUTSIDE OF THE [place] IN LAST 30 DAYS: No - HEENT HEENT: Atraumatic, Normal ENT Exam, Normocephalic, PERRLA - NECK Neck: Normal Inspection, Supple, Thyroid Normal - RESPIRATORY Respiratory: Breath Sounds Normal, No Respiratory Distress, Chest Non-Tender - CARDIOVASCULAR Cardiovascular: Regular Rate, Regular Rhythm, No Murmur - GI/ABDOMEN Gastrointestinal: Abdomen Soft, Abdomen Non-Tender, No Organomegaly, Normal Bowel Sounds - REPRODUCTIVE Female Genitalia: Normal Inspection - BACK Back: Normal Inspection - MUSCULOSKELETAL/EXTREMETIES Musculoskeletal/Extremeties: Tender - right shoulder, No Edema. negative: FROM - Right shoulder limited due to pain, Eccymosis - NEURO Level of Consciousness: Awake, Alert, Appropriate Motor/Sensory: No Motor Deficit, No Sensory Deficit, No Pronator Drift Deep Tendon Reflexes: 2+ - DERM Integumentary: Warm, Dry, No Rash Course - Re-evaluation Re-evalutation: 03/26/19 16:10 Patient is on chronic pain management. Will give 1 [place] while she is here in the emergency room she has been instructed to follow-up with a primary care urgent care for any other medications until she can follow-up with her primary doctor and pain management. - Vital Signs Vital signs: Temp Pulse Resp BP Pulse Ox 98.2 F 92 16 148/103 H 97 03/26/19 15:47 03/26/19 15:47 03/26/19 15:47 03/26/19 15:47 03/26/19 15:47 Discharge - Discharge Clinical Impression: Chronic pain in right shoulder Condition: Stable Disposition: HOME, SELF-CARE Additional Instructions: Chronic Pain Control Stress, inactivity, and depression make pain more severe regardless of the cause of the pain. Stress and poor physical condition can cause pain such as headaches and backache. Relaxation: Rest in a quiet place with your eyes closed for 20 minutes twice daily. Concentrate on a pleasant image, or simply "feel" your breathing. Clear your mind. Stress management: Deal with your "stressors." Either take action, or eliminate the stressor from your life. Don't let things hang over you. Accept those things you can't change. Nutrition: Eat small, balanced meals -- don't skip, don't overeat. Meals should be high-carbohydrate, low-sugar, low-fat. Exercise: Exercise helps painful conditions and eases stress. Get 30 minutes of moderate exercise, five days a week. Do an activity that does not flare your pain. Precautions: Pain which continues to disrupt daily activities, or which changes in nature, requires a medical evaluation. Pain Clinic referral is available. We do not manage chronic pain in the Emergency Department. We will try to appropriately help you through an acute flare of your chronic painful condition, but for on-going chronic pain that does not improve, you will need to see your private doctor or touch up painter hand. We do not provide repeated medication management of chronic painful conditions. If you wish, we can provide the name of local pain management physicians. Exercise Program for the Shoulder Since the shoulder moves in so many directions, the joint attachment is weak. Muscles provide most of the stability to the shoulder. You must exercise your shoulder to prevent painful instability or stiffening. PASSIVE - These may be begun within a few days of the injury. While standing, lean forward, allowing the arm to hang down towards the floor. Move the arm in small circles while slowly twisting your chest towards and away from the hanging arm. Do this for one minute. ACTIVE - These may be performed when the doctor gives permission. Begin with the arms at the sides. Raise the arms forward (shoulder's width apart) until they reach shoulder level. Then slowly swing both arms back until they are aiming straight out away from each other. Then bring them forward again, and finally, lower them to your sides. Repeat 20 to 30 times. As you improve, put weights in your hands for the exercise. Start with one pound, and work up to 10 pounds. Never use more than is comfortable. Athletes may work up to 30 pounds. Oral Narcotic Medication You have been given norco for pain control. This medication is a narcotic. It's best taken with food, as nausea can result if taken on an empty stomach. Don't operate machinery or drive within six hours of taking this medication. Do not combine this medicine with alcohol, or with any medication which can cause sedation (such as cold tablets or sleeping pills) unless you get permission from the physician. Narcotics tend to cause constipation. If possible, drink plenty of fluids and eat a diet high in fiber and fruits. FOLLOW-UP CARE: If you have been referred to a physician for follow-up care, call the physicians office for an appointment as you were instructed or within the next two days. If you experience worsening or a significant change in your symptoms, notify the physician immediately or return to the Emergency Department at any time for re-evaluation. Referrals: DELANEY BROOKE NP [Primary Care Provider] - Follow up as needed [facility] [Provider Group] - Follow up as needed [facility] [Provider Group] - Follow up as needed [facility] [Provider Group] - Follow up as needed
[2019-03-26] MEDS ORDERED: HYDROCODONE/ACETAMINOPHEN 5-325 MG TABLET PO ONE (16:04)
[2019-03-26 16:16] VITALS: BP 142/76
== END 2019-03-26 16:17 | disposition home or self-care (01) ==
LOC: ER 14:57
DX: G89.29 Other chronic pain (principal); M25.511 Pain in right shoulder; I10 Essential (primary) hypertension; J44.9 Chronic obstructive pulmonary disease, unspecified; F17.210 Nicotine dependence, cigarettes, uncomplicated; Z71.6 Tobacco abuse counseling; Z85.41 Personal history of malignant neoplasm of cervix uteri
CPT/HCPCS: 99406; 99283; A9270

== ENCOUNTER → 2019-08-10 | Outpatient (CLI) | payer MEDICARE, MEDICAID ==
--- NOTE | 2019-08-10 14:48 | RADIOLOGY REPORT (SQ) ---
EXAM DESCRIPTION: CHEST PA/LATERAL IMAGES COMPLETED DATE/TIME: 08/10/2019 2:40 pm REASON FOR STUDY: CHRONIC OBSTRUCTIVE PULMONARY DISEASE, UNSPECIFIED COMPARISON: 05/03/2018 EXAM PARAMETERS: NUMBER OF VIEWS: two views TECHNIQUE: Digital Frontal and Lateral radiographic views of the chest acquired. RADIATION DOSE: NA LIMITATIONS: none FINDINGS: LUNGS AND PLEURA: Small asymmetric nodular opacity in the left upper lobe is consistent wi th confluence of shadows. No consolidation or effusions. No pneumothorax. MEDIASTINUM AND HILAR STRUCTURES: No masses or contour abnormalities. HEART AND VASCULAR STRUCTURES: Heart normal size. No evidence for failure. BONES: No acute findings. HARDWARE: None in the chest. OTHER: No other significant finding. IMPRESSION: NO SIGNIFICANT RADIOGRAPHIC FINDING IN THE CHEST. TECHNICAL DOCUMENTATION: JOB ID: [id number] 2010 [employer]- All Rights Reserved Reading location - IP/workstation name: [email or web address]
== END ==
LOC: OD 11:21
PROVIDERS: ATTEND Nurse Practitioner Primary Care
DX: J44.9 Chronic obstructive pulmonary disease, unspecified (principal)
CPT/HCPCS: 71046

== ENCOUNTER → 2019-11-04 | Outpatient (CLI) | payer MEDICARE, MEDICAID ==
--- NOTE | 2019-11-04 17:13 | RADIOLOGY REPORT (SQ) ---
EXAM DESCRIPTION: CT LUNG CANCER SCREENING IMAGES COMPLETED DATE/TIME: 11/04/2019 12:04 pm REASON FOR STUDY: Z87.891 PERSONAL HISTORY OF NICOTINE DEPENDENCE Z87.891 PERSONAL HISTORY OF NICOT INE DEPENDENCE. Has the patient had a Chest CT scan within the past year? N Was the patient offered tobacco cessation counseling? Y Was the patient engaged in shared decision making for this test? Y Does the patient have signs or symptoms of Lung Cancer? N Is the patient a smoker? Y How many pack years? 40 How many years since quitting smoking? 0 Patients age: 64 COMPARISON: None. TECHNIQUE: Low Dose CT scan performed of the chest without intravenous contrast for purposes of scre ening for lung cancer. Images reviewed with lung, soft tissue and bone windows. Reconstructed coron al and sagittal MPR images reviewed. All images stored on PACS. All CT scanners at this facility use dose modulation, iterative reconstruction, and/or weight based d osing when appropriate to reduce radiation dose to as low as reasonably achievable (ALARA). [facility]: Dose Right [facility]: CareDose [facility]: Dose Right [facility]: Teradose 4D [facility]: Smart [employer] RADIATION DOSE: CT Rad equipment meets quality standard of care and radiation dose reduction techniq ues were employed. CTDIvol: 2.1 mGy. DLP: 83 mGy-cm. mGy. . LIMITATIONS: None FINDINGS: LUNGS AND PLEURA: No masses or nodules. No pleural effusions or calcifications. No pne umothorax. No scarring or interstitial changes. Background mild pulmonary emphysema predominantly at the lung apices. Punctate calcified granuloma in the left lower lobe. HILAR AND MEDIASTINAL STRUCTURES: No identified masses. No abnormal nodes. HEART AND VASCULAR STRUCTURES: No aortic aneurysm. No pericardial effusion. No cardiac devices. CORONARY ARTERY CALCIFICATIONS: No significant calcifications. UPPER ABDOMEN, THYROID, BONES, OTHER SOFT TISSUES: No significant findings. IMPRESSION: NO SIGNIFICANT FINDING IN THE LUNGS ON NON-CONTRASTED CHEST CT. NO OTHER CLINICALLY SIGNIFICANT/POTENTIALLY CLINICALLY SIGNIFICANT FINDINGS LUNGRADS: LUNGRADS: 1 NEGATIVE. NO NODULES, OR DEFINITELY BENIGN NODULES MODIFIER: NONE RECOMMENDATION: Continue annual screening with LDCT in 12 months. COMMENT: CRITERIA: No lung nodules. Nodules with specific calcifications: Complete, central, popcorn, concentric rings and fat containin g nodules. TECHNICAL DOCUMENTATION: JOB ID: [id number] Quality ID # [id number]: Final reports with documentation of one or more dose reduction techniques (e.g., Au tomated exposure control, adjustment of the mA and/or kV according to patient size, use of iterative reconstruction technique) 2011 [facility] Radiology Reading location - IP/workstation name: [email or web address]
== END ==
LOC: RAD 12:42
PROVIDERS: ATTEND Internal Medicine Pulmonary Disease
DX: Z12.2 Encounter for screening for malignant neoplasm of respiratory organs (principal); Z87.891 Personal history of nicotine dependence; J43.9 Emphysema, unspecified; J84.10 Pulmonary fibrosis, unspecified
CPT/HCPCS: G0297

== ENCOUNTER 2020-01-17 16:49 | Observation (INO) | payer MEDICARE, MEDICAID ==
[2020-01-17 17:16] LABS: ABSOLUTE BASOPHILS # (AUTO) 0.1 10^3/uL (0.0-0.2); ABSOLUTE EOSINOPHILS # (AUTO) 0.1 10^3/uL (0.0-0.6); ABSOLUTE MONOCYTES (AUTO) 1.1 10^3/uL (0.1-1.4); ABSOLUTE NEUT (AUTO) 6.4 10^3/uL (1.7-8.2); BASOPHILS % (AUTO) 0.7 % (0-2); EOSINOPHILS % (AUTO) 0.9 % (0-6); HEMOGLOBIN 10.9 g/dL (12.0-15.5); LYMPHOCYTES % (AUTO) 20.6 % (13-45); MEAN CORPUSCULAR HEMOGLOBIN 30.7 pg (27.0-33.4); MEAN CORPUSCULAR HGB CONC 34.2 g/dL (32.0-36.0); MEAN CORPUSCULAR VOLUME 90 fl (80-97); MONOCYTES % (AUTO) 11.8 % (3-13); PLATELET COUNT 221 10^3/uL (150-450); RED BLOOD COUNT 3.56 10^6/uL (3.72-5.28); RED CELL DISTRIBUTION WIDTH 18.1 % (11.5-14.0); TOTAL CELLS COUNTED % (AUTO) 100 %; WHITE BLOOD COUNT 9.7 10^3/uL (4.0-10.5)
[2020-01-17 17:21] LABS: PROTHROMBIN TIME 13.4 SEC (11.4-15.4)
[2020-01-17 17:44] LABS: ALKALINE PHOSPHATASE 119 U/L (38-126); ANION GAP 12 (5-19); ASPARTATE AMINO TRANSFERASE 116 U/L (14-36); BILIRUBIN,DIRECT 0.5 mg/dL (0.0-0.4); BILIRUBIN,TOTAL 0.6 mg/dL (0.2-1.3); BLOOD UREA NITROGEN 10 mg/dL (7-20); CALCIUM 9.6 mg/dL (8.4-10.2); CARBON DIOXIDE 24 mmol/L (22-30); CHLORIDE 98 mmol/L (98-107); GLUCOSE 104 mg/dL (75-110); POTASSIUM 5.2 mmol/L (3.6-5.0); TOTAL PROTEIN 6.4 g/dL (6.3-8.2)
--- NOTE | 2020-01-17 17:45 | ER Document Report ---
ED General - General Chief Complaint: Weakness Stated Complaint: WEAKNESS Time Seen by Provider: 01/17/20 17:09 TRAVEL OUTSIDE OF THE [place] IN LAST 30 DAYS: No - HPI Notes: Patient is a 64-year-old female with a past medical history of ID status post cardiac stent placement 2 years ago who presents with weakness in her left leg. Patient states that it began yesterday. She states that her leg kept giving out yesterday and she was unable to ambulate. Today, she states it is slightly better but she feels some numbness in her toes. Patient states that she felt this way when she had a heart attack last time. Patient denies any headache or chest pain. No new shortness of breath. No abdominal pain. Patient is a very poor historian. She told nursing staff that she was very shaky at home and took a Suboxone and drank alcohol prior to coming in. She also mentions she just finished antibiotics for a ear infection approximately 2 days ago that she thinks was amoxicillin. - Related Data Allergies/Adverse Reactions: alprazolam [From Xanax] Allergy (Verified 04/18/18 09:21) citalopram hydrobromide [From Celexa] Allergy (Verified 04/18/18 09:21) dextromethorphan HBr [From NyQuil] Allergy (Verified 04/18/18 09:21) doxylamine [From NyQuil] Allergy (Verified 04/18/18 09:21) fluoxetine HCl [From Prozac] Allergy (Verified 04/18/18 09:21) pseudoephedrine HCl [From NyQuil] Allergy (Verified 04/18/18 09:21) trazodone [Trazodone] Allergy (Verified 04/18/18 09:21) antidepressants Adverse Reaction (Uncoded 04/18/18 09:21) Hallucinations Past Medical History - General Information source: Patient, Relative - Social History Smoking Status: Smoker,Current Status Unk Family History: Reviewed & Not Pertinent - Past Medical History Cardiac Medical History: Reports: Hx Heart Attack, Hx Hypercholesterolemia, Hx Hypertension Pulmonary Medical History: Reports: Hx Asthma, Hx Bronchitis, Hx COPD, Hx Pneumonia Denies: Hx Tuberculosis Neurological Medical History: Reports: Hx Migraine Malignancy Medical History: Reports: Hx Cervical Cancer GI Medical History: Reports: Hx Cirrhosis, Hx Gastritis Musculoskeletal Medical History: Reports Hx Muscle Weakness, Reports Hx Musculoskeletal Trauma Psychiatric Medical History: Reports: Hx Anxiety, Hx Bipolar Disorder, Hx Depression Traumatic Medical History: Reports: Hx Fractures - Right shoulder Past Surgical History: Reports: Hx Cardiac Catheterization, Hx Section - x3, Hx Coronary Stent, Hx Gynecologic Surgery - cervical dysplasia, Hx Tonsillectomy, Other - Abscess to the leg with wound VAC after surgery - Immunizations Immunizations up to date: Yes Hx Diphtheria, Pertussis, Tetanus Vaccination: Yes Review of Systems - Review of Systems Notes: CONSTITUTIONAL: No fever, fatigue or weight loss. SKIN: No rash. HENT: No congestion, ear pain, or sore throat. CARDIOVASCULAR: No chest pain or edema. RESPIRATORY: No cough, shortness of breath, congestion, or wheezing. GASTROINTESTINAL: No abdominal pain, nausea, vomiting, bloody stools or diarrhea. MUSCULOSKELETAL: No joint pain or swelling. LYMPHATIC: No swollen glands. NEUROLOGIC: No seizures. No headache. Positive for left leg weakness. Positive for tremors. HEMATOLOGIC: No unusual bruising or bleeding. PSYCHIATRIC: No depression or anxiety. Physical Exam - Vital signs Vitals: Resp BP Pulse Ox 15 104/64 91 L 01/17/20 17:08 01/17/20 17:08 01/17/20 17:08 - General General appearance: Appears well Notes: VITAL SIGNS: Within normal limits. GENERAL: No acute distress, non-toxic appearance. HEAD: Normal with no signs of head trauma. EYES: EOMI, conjunctiva normal, no discharge. EARS: Hearing grossly intact. NOSE: Normal. NECK: Normal range of motion, no tenderness, supple, no lymphadenopathy, No adenopathy, no JVD. CHEST: Clear breath sounds bilaterally. No wheezes, rales, or rhonchi. CARDIAC: Regular rate and rhythm. S1 and S2, without murmurs, gallops, or rubs. VASCULAR: No Edema. ABDOMEN: Normal and soft with no tenderness, no masses or pulsatile masses. GENITOURINARY: Normal, No tenderness LYMPATHTIC: No lymphadenopathy noted. MUSCULOSKELETAL: Good range of motion of all major joints. Extremities without clubbing, cyanosis or edema. NEUROLOGICAL: Alert and oriented x 3. No focal sensory or strength deficits. Speech normal. Follows commands appropriately. PSYCHIATRIC: Normal Affect, judgement and mood. SKIN: Normal appearance with no rashes or lesions. Course - Re-evaluation Re-evalutation: 01/17/20 18:46 Patient was very shaky on exam. She also keeps jumping around from the story to story. Her friend states she has been more confused lately. She denies any weakness to her left leg currently. Patient's lab work is consistent with rhabdomyolysis. She will be given fluids. Her magnesium will be repleted. Patient's head CT was negative. I did recommend she be admitted to the hospital for the rhabdomyolysis. At first, patient was not willing to stay but later agreed to it. I am unsure of the etiology of her rhabdomyolysis. It does appear that she is on a statin based on her medical records. She was also r ecently on an antibiotic. Patient will be admitted to the hospitalist service for further care. 01/18/20 00:47 - Vital Signs Vital signs: Temp Pulse Resp BP Pulse Ox 88 16 110/67 99 01/17/20 19:49 01/17/20 19:49 01/17/20 22:22 01/17/20 22:22 - Laboratory Result Diagrams: 01/17/20 16:28 01/17/20 16:28 Laboratory results interpreted by me: 01/17/20 01/17/20 01/17/20 16:28 16:28 18:21 RBC 3.56 L Hgb 10.9 L Hct 32.0 L RDW 18.1 H Sodium 134.3 L Potassium 5.2 H Lactic Acid Magnesium 1.4 L Direct Bilirubin 0.5 H AST 116 H Creatine Kinase 2115 H CK-MB (CK-2) Ur Leukocyte Esterase SMALL H 01/17/20 01/17/20 01/17/20 18:44 18:44 21:40 RBC Hgb Hct RDW Sodium Potassium Lactic Acid 3.1 H 3.2 H Magnesium Direct Bilirubin AST Creatine Kinase CK-MB (CK-2) 31.10 H Ur Leukocyte Esterase - Diagnostic Test Radiology reviewed: Image reviewed, Reports reviewed - EKG Interpretation by Me EKG shows normal: Sinus rhythm Rate: Normal Rhythm: NSR When compared to previous EKG there are: No significant change Additional EKG results interpreted by me: 01/17/20 17:51 Sinus rhythm at a rate of 87. QTc 448. No acute ST changes. EKG is similar to previous. Discharge - Discharge Clinical Impression: Hypomagnesemia, Occasional tremors Rhabdomyolysis Qualifiers: Rhabdomyolysis type: non-traumatic Qualified Code(s): M62.82 - Rhabdomyolysis Condition: Stable Disposition: ADMITTED INPATIENT Admitting Provider: Felipa (Hospitalist) Unit Admitted: Medical Floor
--- NOTE | 2020-01-17 17:56 | RADIOLOGY REPORT (SQ) ---
EXAM DESCRIPTION: CHEST SINGLE VIEW IMAGES COMPLETED DATE/TIME: 01/17/2020 5:43 pm REASON FOR STUDY: weakness COMPARISON: 08/10/2019 EXAM PARAMETERS: NUMBER OF VIEWS: One view. TECHNIQUE: Single frontal radiographic view of the chest acquired. RADIATION DOSE: NA LIMITATIONS: None. FINDINGS: LUNGS AND PLEURA: Bibasilar atelectasis. No focal consolidation, pleural effusion, or pne umothorax. MEDIASTINUM AND HILAR STRUCTURES: No masses. Contour normal. HEART AND VASCULAR STRUCTURES: Heart normal in size. Normal vasculature. BONES: No acute findings. HARDWARE: None in the chest. OTHER: No other significant finding. IMPRESSION: NO ACUTE RADIOGRAPHIC FINDING IN THE CHEST. TECHNICAL DOCUMENTATION: JOB ID: [id number] 2010 [email or web address]- All Rights Reserved Reading location - IP/workstation name: [email or web address]
[2020-01-17 18:09] LABS: CREATINE KINASE 2115 U/L (30-135)
[2020-01-17 18:17] LABS: ALCOHOL < 10 mg/dL (NONE DETECTED)
[2020-01-17] MEDS ORDERED: NORMAL SALINE 1000 ML 1,000 ML IV ONE (18:22)
[2020-01-17 18:41] LABS: APPEARANCE,URINE SLIGHTLY-CLOUDY; BILIRUBIN,URINE NEGATIVE (NEGATIVE); COLOR,URINE YELLOW; GLUCOSE, URINE NEGATIVE (NEGATIVE); KETONES,URINE NEGATIVE (NEGATIVE); LEUKOCYTE ESTERASE,URINE SMALL (NEGATIVE); NITRITE,URINE NEGATIVE (NEGATIVE); PROTEIN,URINE NEGATIVE (NEGATIVE); UROBILINOGEN,URINE NEGATIVE mg/dL (<2.0)
--- NOTE | 2020-01-17 18:50 | EKG REPORT ---
SEVERITY:- NORMAL ECG - SINUS RHYTHM : Confirmed by: Jarvis Chaparro MD 17-Jan-2020 18:49:39
[2020-01-17 18:59] LABS: VENOUS BLOOD BASE EXCESS -0.2 mmol/L; VENOUS BLOOD HCO3 26.8 mmol/L (20-32); VENOUS BLOOD PCO2 54.6 mmHg (35-63); VENOUS BLOOD PH 7.31 (7.30-7.42)
[2020-01-17] MEDS: MAGNESIUM SULFATE/D5W 1 GM/100 ML RTUPB IV SCH (19:19)
--- NOTE | 2020-01-17 19:45 | RADIOLOGY REPORT (SQ) ---
EXAM DESCRIPTION: CT HEAD WITHOUT IMAGES COMPLETED DATE/TIME: 01/17/2020 7:33 pm REASON FOR STUDY: weakness, left leg COMPARISON: None. TECHNIQUE: Axial images acquired through the brain without intravenous contrast. Images reviewed wi th bone, brain and subdural windows. Additional sagittal and coronal reconstructions were generated. Images stored on PACS. All CT scanners at this facility use dose modulation, iterative reconstruction, and/or weight based d osing when appropriate to reduce radiation dose to as low as reasonably achievable (ALARA). [facility]: Dose Right [facility]: CareDose [facility]: Dose Right [facility]: Teradose 4D [facility]: [employer] RADIATION DOSE: CT Rad equipment meets quality standard of care and radiation dose reduction techniq ues were employed. CTDIvol: 53.2 mGy. DLP: 1097 mGy-cm. mGy. LIMITATIONS: None. FINDINGS: VENTRICLES: Normal size and contour. CEREBRUM: No masses. No hemorrhage. No midline shift. No evidence for acute infarction. Few scatte red areas of low density in the white matter most likely chronic small vessel ischemic changes. CEREBELLUM: No masses. No hemorrhage. No alteration of density. No evidence for acute infarction. EXTRAAXIAL SPACES: No fluid collections. No masses. ORBITS AND GLOBE: No intra- or extraconal masses. Normal contour of globe without masses. CALVARIUM: No fracture. PARANASAL SINUSES: No fluid or mucosal thickening. SOFT TISSUES: No mass or hematoma. OTHER: No other significant finding. IMPRESSION: MILD CHRONIC MICROVASCULAR ISCHEMIA. NO ACUTE IMAGING FINDINGS IN THE BRAIN. EVIDENCE OF ACUTE STROKE: NO. COMMENT: Quality ID # [id number]: Final reports with documentation of one or more dose reduction techniques (e.g., Automated exposure control, adjustment of the mA and/or kV according to patient size, use of iterative reconstruction technique) TECHNICAL DOCUMENTATION: JOB ID: [id number] 2010 [employer]- All Rights Reserved Reading location - IP/workstation name: [email or web address]
[2020-01-17] MEDS ORDERED: PROMETHAZINE HCL INJ 25 MG/1 ML VIAL IV PRN (23:22)
[2020-01-17] MEDS ORDERED: DEXTROSE 5%-NORMAL SALINE 1,000 ML IV PRN (23:22)
[2020-01-17] MEDS ORDERED: MAGNESIUM HYDROXIDE SUSP 30 ML UDCUP PO PRN (23:22)
[2020-01-17] MEDS ORDERED: LEVALBUTEROL HCL NEB 0.63 MG/3 ML AMPUL NEB PRN (23:22)
[2020-01-17] MEDS ORDERED: MAG HYDROX/AL HYDROX/SIMETH SUSP 30 ML UDCUP PO PRN (23:22)
[2020-01-17] MEDS ORDERED: HYDRALAZINE HCL INJ/PF 20 MG/1 ML SDV IV PRN (23:27)
[2020-01-17] MEDS ORDERED: MORPHINE SULFATE 10 MG/ML INJ IV PRN ×4 (23:27→23:39)
[2020-01-17] MEDS ORDERED: MELATONIN 5 MG TABLET PO PRN (23:27)
[2020-01-17] MEDS ORDERED: METOPROLOL TARTRATE PF/INJ 5 MG/5 ML SDV IV PRN (23:27)
[2020-01-17] MEDS ORDERED: ACETAMINOPHEN 325 MG TABLET PO PRN (23:27)
[2020-01-17] MEDS ORDERED: NICOTINE 21 MG/24 HR PATCH.TD24 TD PRN (23:27)
[2020-01-17] MEDS ORDERED: GUAIFENESIN SYRP 200 MG/10 ML UDC PO PRN (23:27)
[2020-01-17] MEDS ORDERED: CHLORPROMAZINE HCL INJ 25 MG/1 ML AMPULE IV PRN (23:28)
[2020-01-17] MEDS ORDERED: DIAZEPAM INJ 10 MG/2 ML DISP.SYRIN IV PRN (23:28)
--- NOTE | 2020-01-18 00:35 | PDOC H&P ---
History of Present Illness Admission Date/PCP: 01/17/20 21:43 ARABELLA MEZA, MANAGER WIRELESS-C Patient complains of: Generalized weakness History of Present Illness: SIMON WILLIAM is a 64 year old female who presented to the emergency room with a 1 day history of generalized weakness. She has a very poor medical cash poster. She admits gradually developing weakness yesterday when she first noticed weakness in her left leg that has gradually become generalized weakness throughout her body. Her generalized weakness is accompanied by severe intermittent bouts of tremulousness and is associated with numbness in her bilateral toes. She has been feeling very anxious today and took a drink of alcohol and someone else's Suboxone prior to coming to the hospital. She denies other associated or accompanying signs and symptoms. She admits a prior similar episode associated with her heart attack. She has not identified any aggravating or ameliorating factors for her generalized weakness. In the emergency room she was found to have rhabdomyolysis with a CPK of 2150 and was noted to be very tremulous throughout her ER stay. She was subsequently admitted to the medical service for further evaluation and treatment. Past Medical History Cardiac Medical History: Reports: Coronary Artery Disease, Myocardial Infarction, Hyperlipidema, Hypertension Denies: Atrial Fibrillation, Congestive Heart Failure Pulmonary Medical History: Reports: Asthma, Bronchitis, Chronic Obstructive Pulmonary Disease (COPD), Pneumonia, Sleep Apnea - Uses home O2 at 2 L/min at night Denies: Tuberculosis EENT Medical History: Denies: Cataracts, Ears - Hearing aids Neurological Medical History: Reports: Migraine Denies: Hemorrhagic CVA, Ischemic CVA, Seizures Endocrine Medical History: Denies: Diabetes Mellitus Type 1, Diabetes Mellitus Type 2, Hyperthyroidism, Hypothyroidism Renal/ Medical History: Denies: Chronic Kidney Disease, Nephrolithiasis Malignancy Medical History: Reports: Cervical Cancer GI Medical History: Reports: Cirrhosis - Alcoholic, Hepatitis - Alcohol Denies: Peptic Ulcer Disease Musculoskeltal Medical History: Denies: Arthritis, Fibromyalgia Skin Medical History: Denies: Eczema, Psoriasis Psychiatric Medical History: Reports: Alcohol Dependency, Bipolar Disorder, Depression, General Anxiety Disorder, Tobacco Dependency, Other - Insomnia Denies: Substance Abuse Traumatic Medical History: Reports: None Hematology: Denies: Anemia, Bleeding Tendencies Infectious Medical History: Reports: None Past Surgical History Past Surgical History: Reports: Cardiac Catheterization, Section - x3, Coronary Stent, Tonsillectomy, Other - Abscess to the leg with wound VAC after surgery Social History Information Source: Patient Smoking Status: Current Every Day Smoker Cigarettes Packs Per Day: 1 Electronic Cigarette use?: No Frequency of Alcohol Use: Heavy - Admits heavy daily alcohol consumption but will not specify the amount she consumes Hx Recreational Drug Use: No Drugs: None Hx Prescription Drug Abuse: No - Advance Directive Resuscitation Status: Full Code Surrogate healthcare decision maker:: Syd Eisenberg Family History Family History: Malignancy Parental Family History Reviewed: Yes Children Family History Reviewed: No Sibling(s) Family History Reviewed.: No Medication/Allergy Home Medications: Albuterol Sulfate [Proair HFA Inhalation Aerosol 8.5 gm MDI] 2 puff IH Q4 PRN 04/19/18 Aspirin [Adult Aspirin] 81 mg PO DAILY 04/19/18 Atorvastatin Calcium [Lipitor 80 mg Tablet] 80 mg PO QHS 04/19/18 Cariprazine HCl [Vraylar] 6 mg PO DAILY 04/19/18 Clopidogrel Bisulfate [Plavix 75 mg Tablet] 75 mg PO DAILY 04/19/18 Lisinopril [Prinivil 2.5 mg Tablet] 2.5 mg PO DAILY 04/19/18 Metoprolol Succinate [Toprol Xl] 25 mg PO DAILY 04/19/18 Multivitamin [Daily Multiple Vitamin] 1 each PO DAILY 04/19/18 Tiotropium [place] [Spiriva Hand[place]haler 5 Cap/Kit (18 Mcg/Cap)] 1 cap IH DAILY 04/19/18 Cyanocobalamin (Vitamin B-12) [Vitamin B-12 500 mcg Tablet] 500 mcg PO DAILY 04/22/18 Gabapentin [Neurontin 300 mg Capsule] 300 mg PO TID 04/22/18 Multivit-Min/Iron/Folic/Lutein [Centrum Silver Women Tablet] 1 each PO DAILY 04/22/18 Pyridoxine HCl [Vitamin B-6] 100 mg PO DAILY 04/22/18 Vitamin B Complex/Folic Acid [Vitamin B-50 Complex Tablet] 0.4 mg PO DAILY 04/22/18 Hydrocodone/Acetaminophen [[place] 5-325 mg Tablet] 1 tab PO Q4HP PRN #20 tablet 04/24/18 Vancomycin HCl [Vancocin Inj 1000 mg Vial] 1,000 mg IV Q12 #20 vial 04/24/18 Hydrocodone/Acetaminophen [[place] 5-325 mg Tablet] 1 tab PO Q4HP PRN #14 tablet 10/20/18 Allergies/Adverse Reactions: alprazolam [From Xanax] Allergy (Verified 04/18/18 09:21) citalopram hydrobromide [From Celexa] Allergy (Verified 04/18/18 09:21) dextromethorphan HBr [From NyQuil] Allergy (Verified 04/18/18 09:21) doxylamine [From NyQuil] Allergy (Verified 04/18/18 09:21) fluoxetine HCl [From Prozac] Allergy (Verified 04/18/18 09:21) pseudoephedrine HCl [From NyQuil] Allergy (Verified 04/18/18 09:21) trazodone [Trazodone] Allergy (Verified 04/18/18 09:21) antidepressants Adverse Reaction (Uncoded 04/18/18 09:21) Hallucinations Review of Systems Constitutional: PRESENT: weakness - Generalized generalized, started in the left leg. ABSENT: chills, fever(s) Eyes: ABSENT: visual disturbances, other - Eye pain Ears: PRESENT: other - Ear discomfort, recently treated for an ear infection with Augmentin. ABSENT: hearing changes Nose, Mouth, and Throat: ABSENT: headache(s), sore throat Cardiovascular: ABSENT: chest pain, palpitations Respiratory: ABSENT: cough, dyspnea Gastrointestinal: ABSENT: abdominal pain, constipation, diarrhea, nausea, vomiting Genitourinary: ABSENT: dysuria, hematuria Musculoskeletal: PRESENT: muscle weakness. ABSENT: joint swelling Integumentary: ABSENT: pruritus, rash Neurological: PRESENT: focal weakness - Weakness started in left leg and then became generalized, numbness - Bilateral toes. ABSENT: confusion, convulsions, memory loss, syncope Psychiatric: PRESENT: other - Tremulousness. ABSENT: anxiety, depression Endocrine: ABSENT: cold intolerance, heat intolerance Hematologic/Lymphatic: ABSENT: easy bleeding, easy bruising Allergic/Immunologic: ABSENT: seasonal rhinorrhea Physical Exam Vital Signs: Temp Pulse Resp BP Pulse Ox 88 16 110/67 99 01/17/20 19:49 01/17/20 19:49 01/17/20 22:22 01/17/20 22:22 Intake & Output 01/15/20 01/16/20 01/17/20 23:59 23:59 23:59 Weight 66.224 kg General appearance: PRESENT: no acute distress, cooperative Head exam: PRESENT: atraumatic, normocephalic Eye exam: PRESENT: conjunctiva pink. ABSENT: conjunctival injection, scleral icterus Ear exam: PRESENT: normal external ear exam. ABSENT: bleeding, drainage Mouth exam: PRESENT: dry mucosa, neck supple Neck exam: ABSENT: thyromegaly, tracheal deviation Respiratory exam: PRESENT: decreased breath sounds - Minimally decreased breath sounds throughout all iniguez, prolonged expiratory phas - Mildly prolonged expiratory phase throughout all iniguez, symmetrical, wheezes - Minimal expiratory wheezing noted in all iniguez Cardiovascular exam: PRESENT: RRR. ABSENT: clicks, gallop, rubs Pulses: PRESENT: normal radial pulses, normal dorsalis pedis pul Vascular exam: PRESENT: normal capillary refill. ABSENT: pallor GI/Abdominal exam: PRESENT: normal bowel sounds, soft. ABSENT: tenderness Rectal exam: PRESENT: deferred Extremities exam: ABSENT: joint swelling, pedal edema Musculoskeletal exam: ABSENT: deformity, dislocation Neurological exam: PRESENT: alert, oriented to person, oriented to place, oriented to time, oriented to situation, CN II-XII grossly intact, other - Tremulous. ABSENT: motor sensory deficit Psychiatric exam: PRESENT: appropriate affect, flat affect Skin exam: PRESENT: dry, intact, warm. ABSENT: jaundice, rash, urticaria Results Laboratory Results: 01/17/20 16:28 01/17/20 16:28 01/17/20 01/17/20 01/17/20 16:28 16:28 18:21 WBC 9.7 RBC 3.56 L Hgb 10.9 L Hct 32.0 L MCV 90 MCH 30.7 MCHC 34.2 RDW 18.1 H Plt Count 221 Seg Neutrophils % 66.0 VBG pH VBG pCO2 VBG HCO3 VBG Base Excess Sodium 134.3 L Potassium 5.2 H Chloride 98 Carbon Dioxide 24 Anion Gap 12 BUN 10 Creatinine 0.54 Est GFR ( Amer) > 60 Glucose 104 Lactic Acid Calcium 9.6 Magnesium 1.4 L Total Bilirubin 0.6 AST 116 H Alkaline Phosphatase 119 Total Protein 6.4 Albumin 4.0 Urine Color YELLOW Urine Appearance SLIGHTLY-CLOUDY Urine pH 5.0 Ur Specific [place] 1.010 Urine Protein NEGATIVE Urine Glucose (UA) NEGATIVE Urine Ketones NEGATIVE Urine Blood NEGATIVE Urine Nitrite NEGATIVE Ur Leukocyte Esterase SMALL H Urine WBC (Auto) 1 Urine RBC (Auto) 3 01/17/20 01/17/20 01/17/20 18:44 18:44 21:40 WBC RBC Hgb Hct MCV MCH MCHC RDW Plt Count Seg Neutrophils % VBG pH 7.31 VBG pCO2 54.6 VBG HCO3 26.8 VBG Base Excess -0.2 Sodium Potassium Chloride Carbon Dioxide Anion Gap BUN Creatinine Est GFR ( Amer) Glucose Lactic Acid 3.1 H 3.2 H Calcium Magnesium Total Bilirubin AST Alkaline Phosphatase Total Protein Albumin Urine Color Urine Appearance Urine pH Ur Specific [place] Urine Protein Urine Glucose (UA) Urine Ketones Urine Blood Urine Nitrite Ur Leukocyte Esterase Urine WBC (Auto) Urine RBC (Auto) 01/17/20 01/17/20 01/17/20 16:28 16:28 18:44 Creatine Kinase 2115 H CK-MB (CK-2) 31.10 H Troponin I < 0.012 Impressions: Chest X-Ray 01/17/20 17:34 IMPRESSION: NO ACUTE RADIOGRAPHIC FINDING IN THE CHEST. Head CT 01/17/20 17:35 IMPRESSION: MILD CHRONIC MICROVASCULAR ISCHEMIA. NO ACUTE IMAGING FINDINGS IN THE BRAIN. EVIDENCE OF ACUTE STROKE: NO. Assessment and Plan - Diagnosis (1) Rhabdomyolysis Qualifiers: Rhabdomyolysis type: non-traumatic Qualified Code(s): M62.82 - Rhabdomyolysis Is this a current diagnosis for this admission?: Yes (2) Hypomagnesemia Is this a current diagnosis for this admission?: Yes (3) Lactic acidosis Is this a current diagnosis for this admission?: Yes (4) Hyperkalemia Is this a current diagnosis for this admission?: Yes (5) Alcohol use disorder, severe, dependence Is this a current diagnosis for this admission?: Yes (6) Tobacco use disorder, severe, dependence Is this a current diagnosis for this admission?: Yes (7) Hypertension Qualifiers: Hypertension type: essential hypertension Qualified Code(s): I10 - Essential (primary) hypertension Is this a current diagnosis for this admission?: Yes (8) COPD (chronic obstructive pulmonary disease) Qualifiers: COPD type: unspecified COPD Qualified Code(s): J44.9 - Chronic obstructive pulmonary disease, unspecified Is this a current diagnosis for this admission?: Yes (9) Coronary artery disease Qualifiers: Coronary Disease-Associated Artery/Lesion type: [place] artery [place] vs. transplanted heart: nond[place] heart Associated angina: without angina Qualified Code(s): I25.10 - Atherosclerotic heart disease of nond[place] coronary artery without angina pectoris Is this a current diagnosis for this admission?: Yes - Plan Summary Summary: Patient will be admitted to the medical service where she will receive routine supportive and symptomatic cares. She will be treated with IV fluids utilizing normal saline at 167 mL/h. She will receive Valium 5 mg p.o. every 4 hours and may have Valium 10 mg IV every 1 hour as needed severe tremulousness/alcohol withdrawal symptoms. She will receive Thorazine 25 mg IV every 8 hours as needed for hallucination/severe delirium. Smoking cessation is advised and counseled briefly at the bedside. A nicotine replacement patch will be available for the patient's use, if desired. She will be treated with a cardiac diet. Serial CPK levels will be obtained. Additional laboratory and/or radiographic evaluations be obtained as needed. She will receive morphine sulfate 2 to 4 mg IV every 2 hours as needed for pain. - Time Time Spent with patient: Less than 15 minutes Smoking Cessation Education: 3 to 10 minutes Medications reviewed and adjusted accordingly: Yes Anticipated Discharge Disposition: Home, Self Care Anticipated Discharge Timeframe: Undetermined - Inpatient Certification Based on my medical assessment, after consideration of the patient's comorbidities, presenting symptoms, or acuity I expect that the services needed warrant INPATIENT care.: Yes I certify that my determination is in accordance with my understanding of Medicare's requirements for reasonable and necessary INPATIENT services [42 CFR 412.3e].: Yes Medical Necessity: Significant Comorbidiites Make Outpatient Treatment Too Risky, Need Close Monitoring Due to Risk of Patient Decompensation, Need For IV Fluids, Risk of Complication if Not Cared For in Hospital
[2020-01-18] MEDS: DIAZEPAM 5 MG TABLET PO SCH ×2 (02:55→06:12)
[2020-01-18] MEDS: FAMOTIDINE 20 MG TABLET PO SCH ×2 (02:55→09:30)
[2020-01-18] MEDS: MAGNESIUM SULFATE/D5W 1 GM/100 ML RTUPB IV SCH (03:01)
[2020-01-18 05:44] LABS: HEMATOCRIT 27.7 % (36.0-47.0); HEMOGLOBIN 9.4 g/dL (12.0-15.5); MEAN CORPUSCULAR HEMOGLOBIN 30.5 pg (27.0-33.4); MEAN CORPUSCULAR VOLUME 90 fl (80-97); PLATELET COUNT 175 10^3/uL (150-450); RED CELL DISTRIBUTION WIDTH 18.3 % (11.5-14.0); WHITE BLOOD COUNT 7.9 10^3/uL (4.0-10.5)
[2020-01-18] MEDS ORDERED: HEPARIN SOD (PORCINE) 5,000 UNIT/ML 1 ML VIAL SUBCUT SCH (06:00)
[2020-01-18 06:02] LABS: ALBUMIN 3.2 g/dL (3.5-5.0); ALKALINE PHOSPHATASE 104 U/L (38-126); ANION GAP 5 (5-19); ASPARTATE AMINO TRANSFERASE 99 U/L (14-36); BILIRUBIN,DIRECT 0.3 mg/dL (0.0-0.4); BILIRUBIN,TOTAL 0.4 mg/dL (0.2-1.3); BLOOD UREA NITROGEN 9 mg/dL (7-20); CALCIUM 9.2 mg/dL (8.4-10.2); CARBON DIOXIDE 30 mmol/L (22-30); CHLORIDE 101 mmol/L (98-107); CHOLESTEROL 97.15 mg/dL (0-200); CREATINE KINASE 1294 U/L (30-135); GLUCOSE 119 mg/dL (75-110); TOTAL PROTEIN 5.4 g/dL (6.3-8.2); TRIGLYCERIDES 148 mg/dL (<150)
[2020-01-18 06:13] LABS: DIRECT LDL 43 mg/dL (<100)
[2020-01-18 06:27] LABS: POTASSIUM 4.2 mmol/L (3.6-5.0)
[2020-01-18] MEDS ORDERED: LORAZEPAM INJ 2 MG/1 ML VIAL IV PRN ×3 (08:12)
[2020-01-18 10:00] LABS: URINE AMPHETAMINES SCREEN NEGATIVE; URINE BARBITURATES SCREEN NEGATIVE; URINE BENZODIAZEPINES SCREEN NEGATIVE; URINE COCAINE SCREEN NEGATIVE; URINE MARIJUANA (THC) SCREEN NEGATIVE; URINE METHADONE SCREEN NEGATIVE; URINE PHENCYCLIDINE SCREEN NEGATIVE
[2020-01-18] MEDS ORDERED: THIAMINE HCL 100 MG TABLET PO SCH (10:00)
[2020-01-18] MEDS ORDERED: DOCUSATE SODIUM 100 MG CAPSULE PO SCH (10:00)
--- NOTE | 2020-01-18 12:18 | PDOC DISCHARGE SUMMARY ---
Impression - Admit/DC Date/PCP Admission Date/Primary Care Provider: 01/17/20 21:43 NIMCO OJEDA Discharge Date: 01/18/20 - Discharge Diagnosis (1) Rhabdomyolysis Is this a current diagnosis for this admission?: Yes (2) UTI (urinary tract infection) Is this a current diagnosis for this admission?: Yes (3) Weakness generalized Is this a current diagnosis for this admission?: Yes (4) Alcohol use disorder, severe, dependence Is this a current diagnosis for this admission?: Yes (5) Coronary artery disease Is this a current diagnosis for this admission?: Yes (6) Hyperkalemia Is this a current diagnosis for this admission?: Yes (7) Hypomagnesemia Is this a current diagnosis for this admission?: Yes (8) Lactic acidosis Is this a current diagnosis for this admission?: Yes (9) COPD (chronic obstructive pulmonary disease) Is this a current diagnosis for this admission?: Yes (10) Hypertension Is this a current diagnosis for this admission?: Yes - Additional Information Resuscitation Status: Full Code Discharge Diet: Regular Discharge Activity: Activity As Tolerated Referrals: MEGHANN CAREY MD [ACTIVE STAFF] - Follow up as needed ARABELLA MEZA FNP-C [Primary Care Provider] - Prescriptions: Cephalexin Monohydrate [Keflex 500 mg Capsule] 500 mg PO QID 5 Days #20 capsule Lidocaine [Lidoderm 5% (700 mg) Transdermal Patch] 1 patch TP DAILY #10 Thiamine HCl [Thiamine 100 mg Tablet] 100 mg PO DAILY #30 tablet Home Medications: Albuterol Sulfate [Proair HFA Inhalation Aerosol 8.5 gm MDI] 2 puff IH Q4 PRN 04/19/18 Atorvastatin Calcium [Lipitor 80 mg Tablet] 80 mg PO QHS 04/19/18 Cariprazine HCl [Vraylar] 6 mg PO DAILY 04/19/18 Lisinopril [Prinivil 2.5 mg Tablet] 2.5 mg PO DAILY 04/19/18 Metoprolol Succinate [Toprol Xl] 25 mg PO DAILY 04/19/18 Bupropion HCl [Bupropion Xl] 150 mg PO DAILY 01/18/20 Cephalexin Monohydrate [Keflex 500 mg Capsule] 500 mg PO QID 5 Days #20 capsule 01/18/20 Duloxetine HCl [Cymbalta] 60 mg PO BID 01/18/20 Fluticasone/Umeclidin/Vilanter [Trelegy 100-62.5-25 Mcg Ellipta 14 Dose/Dpi] 1 each PO DAILY 01/18/20 Gabapentin [Neurontin 300 mg Capsule] 300 mg PO BID #0 01/18/20 Ipratropium/Albuterol Sulfate [Duoneb 3 ml Ampul] 3 ml NEB RTQ6HP PRN 01/18/20 Lidocaine [Lidoderm 5% (700 mg) Transdermal Patch] 1 patch TP DAILY #10 01/18/20 Omeprazole 20 mg PO DAILY 01/18/20 Pregabalin [Lyrica 100 mg Capsule] 100 mg PO TID 01/18/20 Quetiapine Fumarate [Seroquel] 50 mg PO DAILY 01/18/20 Thiamine HCl [Thiamine 100 mg Tablet] 100 mg PO DAILY #30 tablet 01/18/20 History of Present Illiness History of Present Illness: According to admitting provider: SIMON WILLIAM is a 64 year old female who presented to the emergency room with a 1 day history of generalized weakness. She has a very poor certified medical biller. She admits gradually developing weakness yesterday when she first noticed weakness in her left leg that has gradually become generalized weakness throughout her body. Her generalized weakness is accompanied by severe intermittent bouts of tremulousness and is associated with numbness in her bilateral toes. She has been feeling very anxious today and took a drink of alcohol and someone else's Suboxone prior to coming to the hospital. She denies other associated or accompanying signs and symptoms. She admits a prior similar episode associated with her heart attack. She has not identified any aggravating or ameliorating factors for her generalized weakness. In the emergency room she was found to have rhabdomyolysis with a CPK of 2150 and was noted to be very tremulous throughout her ER stay. She was subsequently admit haylie to the medical service for further evaluation and treatment. Hospital Course Hospital Course: Patient presented to the hospital for evaluation of palpitations, muscle weakness mostly in her legs as well as urinary urgency with frequency. Blood work revealed elevated CK indicative of rhabdomyolysis. Patient does have chronic alcohol abuse which likely contributed to patient's rhabdomyolysis. Urinalysis was faintly positive but urine cultures positive for gram-negative bacteria. Given patient's urinary symptoms she will be treated for UTI with 5 days of Keflex. Regarding patient's rhabdomyolysis, she received IV fluids with significant improvement of rhabdomyolysis. UDS is negative. Patient counseled on alcohol cessation. CIWA score this morning is 0. She denies any fecal incontinence, saddle anesthesia or total numbness in her extremities. She does however have some back pain for which she uses lidocaine patch. I did have physical and occupational therapy work with her this morning and was informed that patient was able to ambulate adequately. I will be setting patient up with home health for PT and OT or to be done as outpatient therapy. Social work consulted to set this up. Patient is stable for discharge at this time. Patient's hypomagnesemia has resolved with adequate repletion. Hyperkalemia has also resolved after receiving IV fluids. Likely she was very much dehydrated. She has been instructed to follow-up with her primary care provider for further care. Physical Exam Vital Signs: Temp Pulse Resp BP Pulse Ox 98.2 F 88 20 131/63 H 91 L 01/18/20 08:51 01/18/20 08:51 01/18/20 08:51 01/18/20 08:51 01/18/20 08:51 Intake & Output 01/17/20 01/18/20 01/19/20 06:59 06:59 06:59 Intake Total 1360 Balance 1360 Weight 68.8 kg General appearance: PRESENT: no acute distress, cooperative Neck exam: ABSENT: JVD Respiratory exam: PRESENT: clear to auscultation paul, symmetrical, unlabored. ABSENT: tachypnea, wheezes Cardiovascular exam: PRESENT: +S1, +S2. ABSENT: tachycardia GI/Abdominal exam: PRESENT: soft. ABSENT: rebound, rigid, tenderness Musculoskeletal exam: PRESENT: tenderness - Presenting paraspinal muscle. No spinal tenderness. Negative straight leg test., other - Decreased sensation in lower extremities bilaterally Neurological exam: PRESENT: alert, awake, oriented to person, oriented to place, oriented to time Results Laboratory Results: WBC 7.9 10^3/uL (4.0-10.5) 01/18/20 05:20 RBC 3.10 10^6/uL (3.72-5.28) L 01/18/20 05:20 Hgb 9.4 g/dL (12.0-15.5) L 01/18/20 05:20 Hct 27.7 % (36.0-47.0) L 01/18/20 05:20 MCV 90 fl (80-97) 01/18/20 05:20 MCH 30.5 pg (27.0-33.4) 01/18/20 05:20 MCHC 34.0 g/dL (32.0-36.0) 01/18/20 05:20 RDW 18.3 % (11.5-14.0) H 01/18/20 05:20 Plt Count 175 10^3/uL (150-450) 01/18/20 05:20 Lymph % (Auto) 20.6 % (13-45) 01/17/20 16:28 [place] % (Auto) 11.8 % (3-13) 01/17/20 16:28 Eos % (Auto) 0.9 % (0-6) 01/17/20 16:28 Baso % (Auto) 0.7 % (0-2) 01/17/20 16:28 Absolute Neuts (auto) 6.4 10^3/uL (1.7-8.2) 01/17/20 16:28 Absolute Lymphs (auto) 2.0 10^3/uL (0.5-4.7) 01/17/20 16:28 Absolute Monos (auto) 1.1 10^3/uL (0.1-1.4) 01/17/20 16:28 Absolute Eos (auto) 0.1 10^3/uL (0.0-0.6) 01/17/20 16:28 Absolute Basos (auto) 0.1 10^3/uL (0.0-0.2) 01/17/20 16:28 Seg Neutrophils % 66.0 % (42-78) 01/17/20 16:28 PT 13.4 SEC (11.4-15.4) 01/17/20 16:28 INR 1.00 01/17/20 16:28 VBG pH 7.31 (7.30-7.42) 01/17/20 18:44 VBG pCO2 54.6 mmHg (35-63) 01/17/20 18:44 VBG HCO3 26.8 mmol/L (20-32) 01/17/20 18:44 VBG Base Excess -0.2 mmol/L 01/17/20 18:44 Sodium 136.2 mmol/L (137-145) L 01/18/20 05:20 Potassium 4.2 mmol/L (3.6-5.0) D 01/18/20 05:20 Chloride 101 mmol/L (98-107) 01/18/20 05:20 Carbon Dioxide 30 mmol/L (22-30) 01/18/20 05:20 Anion Gap 5 (5-19) 01/18/20 05:20 BUN 9 mg/dL (7-20) 01/18/20 05:20 Creatinine 0.62 mg/dL (0.52-1.25) 01/18/20 05:20 Est GFR ( Amer) > 60 (>60) 01/18/20 05:20 Est GFR (MDRD) Non-Af > 60 (>60) 01/18/20 05:20 Glucose 119 mg/dL (75-110) H 01/18/20 05:20 Lactic Acid 1.3 mmol/L (0.7-2.1) 01/18/20 10:36 Calcium 9.2 mg/dL (8.4-10.2) 01/18/20 05:20 Magnesium 1.8 mg/dL (1.6-2.3) 01/18/20 05:20 Total Bilirubin 0.4 mg/dL (0.2-1.3) 01/18/20 05:20 Direct Bilirubin 0.3 mg/dL (0.0-0.4) 01/18/20 05:20 Neonat Total Bilirubin Not Reportable 01/18/20 05:20 Neonat Direct Bilirubin Not Reportable 01/18/20 05:20 Neonat Indirect Bili Not Reportable 01/18/20 05:20 AST 99 U/L (14-36) H 01/18/20 05:20 ALT 28 U/L (<35) 01/18/20 05:20 Alkaline Phosphatase 104 U/L (38-126) 01/18/20 05:20 Creatine Kinase 1294 U/L (30-135) H 01/18/20 05:20 CK-MB (CK-2) 31.10 ng/mL (<4.55) H 01/17/20 18:44 Troponin I < 0.012 ng/mL 01/17/20 16:28 Total Protein 5.4 g/dL (6.3-8.2) L 01/18/20 05:20 Albumin 3.2 g/dL (3.5-5.0) L 01/18/20 05:20 Triglycerides 148 mg/dL (<150) 01/18/20 05:20 Cholesterol 97.15 mg/dL (0-200) 01/18/20 05:20 LDL Cholesterol Direct 43 mg/dL (<100) 01/18/20 05:20 VLDL Cholesterol 30.0 mg/dL (10-31) 01/18/20 05:20 HDL Cholesterol 32 mg/dL (>40) L 01/18/20 05:20 TSH 1.79 uIU/mL (0.47-4.68) 01/18/20 05:20 Urine Color YELLOW 01/17/20 18:21 Urine Appearance SLIGHTLY-CLOUDY 01/17/20 18:21 Urine pH 5.0 (5.0-9.0) 01/17/20 18:21 Ur Specific [place] 1.010 01/17/20 18:21 Urine Protein NEGATIVE mg/dL (NEGATIVE) 01/17/20 18:21 Urine Glucose (UA) NEGATIVE mg/dL (NEGATIVE) 01/17/20 18:21 Urine Ketones NEGATIVE mg/dL (NEGATIVE) 01/17/20 18:21 Urine Blood NEGATIVE (NEGATIVE) 01/17/20 18:21 Urine Nitrite NEGATIVE (NEGATIVE) 01/17/20 18:21 Urine Bilirubin NEGATIVE (NEGATIVE) 01/17/20 18:21 Urine Urobilinogen NEGATIVE mg/dL (<2.0) 01/17/20 18:21 Ur Leukocyte Esterase SMALL (NEGATIVE) H 01/17/20 18:21 Urine WBC (Auto) 1 /HPF 01/17/20 18:21 Urine RBC (Auto) 3 /HPF 01/17/20 18:21 Urine Bacteria (Auto) TRACE /HPF 01/17/20 18:21 Squamous Epi Cells Auto 1 /HPF 01/17/20 18:21 Urine Mucus (Auto) RARE /LPF 01/17/20 18:21 Urine Ascorbic Acid NEGATIVE (NEGATIVE) 01/17/20 18:21 Urine Opiates Screen NEGATIVE 01/17/20 18:21 Urine Methadone Screen NEGATIVE 01/17/20 18:21 Ur Barbiturates Screen NEGATIVE 01/17/20 18:21 Ur Phencyclidine Scrn NEGATIVE 01/17/20 18:21 Ur Amphetamines Screen NEGATIVE 01/17/20 18:21 U Benzodiazepines Scrn NEGATIVE 01/17/20 18:21 Urine Cocaine Screen NEGATIVE 01/17/20 18:21 U Marijuana (THC) Screen NEGATIVE 01/17/20 18:21 Serum Alcohol < 10 mg/dL (NONE DETECTED) 01/17/20 16:28 01/17/20 01/17/20 16:28 18:44 CK-MB (CK-2) 31.10 H Troponin I < 0.012 Impressions: Chest X-Ray 01/17/20 17:34 IMPRESSION: NO ACUTE RADIOGRAPHIC FINDING IN THE CHEST. Head CT 01/17/20 17:35 IMPRESSION: MILD CHRONIC MICROVASCULAR ISCHEMIA. NO ACUTE IMAGING FINDINGS IN THE BRAIN. EVIDENCE OF ACUTE STROKE: NO. Plan Time Spent: Greater than 30 Minutes Stroke Is this a Stroke Patient?: No Acute Heart Failure Is this a Heart Failure Patient?: No
[2020-01-18 14:19] VITALS: BP 113/60
== END 2020-01-18 15:44 | disposition home health service (06) ==
LOC: ER 16:49 → INTOOBSV 21:43 → EH 21:43 → 4W 23:10
PROVIDERS: ADMIT Emergency Medicine; ATTEND Internal Medicine
DX: M62.82 Rhabdomyolysis (principal); N39.0 Urinary tract infection, site not specified; R53.1 Weakness; F10.20 Alcohol dependence, uncomplicated; E87.5 Hyperkalemia; E83.42 Hypomagnesemia; I25.10 Atherosclerotic heart disease of native coronary artery without angina pectoris; E87.2 Acidosis; J44.9 Chronic obstructive pulmonary disease, unspecified; I10 Essential (primary) hypertension; R25.1 Tremor, unspecified; R20.0 Anesthesia of skin; M54.9 Dorsalgia, unspecified; K70.30 Alcoholic cirrhosis of liver without ascites; K70.10 Alcoholic hepatitis without ascites; F17.210 Nicotine dependence, cigarettes, uncomplicated; I25.2 Old myocardial infarction; Z95.5 Presence of coronary angioplasty implant and graft; Z79.899 Other long term (current) drug therapy; Z99.81 Dependence on supplemental oxygen; Z85.41 Personal history of malignant neoplasm of cervix uteri
CPT/HCPCS: 93005; 99285; 96361; 96365; 96366; 36415 ×2; 87040; 87086; 82553; 80307 ×2; 82550 ×2; 83605 ×2; 83735 ×2; 84443; 85025; 85027; 85610; 87088; 80076; 80048; 80053; 81001; 84484; 87186; 82803; 80061; 71045; 70450; 93010; 97116; 97162; 97165; J1644; A9270 ×4; J3475; J3490; J7030

== ENCOUNTER 2020-02-29 12:01 | Emergency (ER) | payer MEDICARE, MEDICAID ==
[2020-02-29 13:06] LABS: ABSOLUTE EOSINOPHILS # (AUTO) 0.1 10^3/uL (0.0-0.6); ABSOLUTE LYMPHOCYTES (AUTO) 1.6 10^3/uL (0.5-4.7); ABSOLUTE MONOCYTES (AUTO) 1.1 10^3/uL (0.1-1.4); ABSOLUTE NEUT (AUTO) 5.2 10^3/uL (1.7-8.2); BASOPHILS % (AUTO) 0.4 % (0-2); EOSINOPHILS % (AUTO) 0.8 % (0-6); HEMATOCRIT 32.8 % (36.0-47.0); HEMOGLOBIN 10.7 g/dL (12.0-15.5); LYMPHOCYTES % (AUTO) 20.2 % (13-45); MEAN CORPUSCULAR HEMOGLOBIN 28.6 pg (27.0-33.4); MEAN CORPUSCULAR HGB CONC 32.7 g/dL (32.0-36.0); MEAN CORPUSCULAR VOLUME 87 fl (80-97); MONOCYTES % (AUTO) 13.6 % (3-13); PLATELET COUNT 227 10^3/uL (150-450); RED BLOOD COUNT 3.75 10^6/uL (3.72-5.28); RED CELL DISTRIBUTION WIDTH 19.1 % (11.5-14.0); TOTAL CELLS COUNTED % (AUTO) 100 %
[2020-02-29 13:15] LABS: ALKALINE PHOSPHATASE 127 U/L (38-126); ANION GAP 7 (5-19); ASPARTATE AMINO TRANSFERASE 26 U/L (14-36); BILIRUBIN,DIRECT 0.3 mg/dL (0.0-0.4); BILIRUBIN,TOTAL 0.4 mg/dL (0.2-1.3); BLOOD UREA NITROGEN 8 mg/dL (7-20); CALCIUM 9.9 mg/dL (8.4-10.2); CARBON DIOXIDE 26 mmol/L (22-30); CHLORIDE 98 mmol/L (98-107); GLUCOSE 103 mg/dL (75-110); POTASSIUM 4.8 mmol/L (3.6-5.0); TOTAL PROTEIN 6.7 g/dL (6.3-8.2)
[2020-02-29 13:20] LABS: APPEARANCE,URINE CLOUDY; BILIRUBIN,URINE NEGATIVE (NEGATIVE); GLUCOSE, URINE NEGATIVE (NEGATIVE); KETONES,URINE NEGATIVE (NEGATIVE); LEUKOCYTE ESTERASE,URINE LARGE (NEGATIVE); NITRITE,URINE NEGATIVE (NEGATIVE); PROTEIN,URINE 30 mg/dL (NEGATIVE); URINE SPECIFIC GRAVITY 1.015; UROBILINOGEN,URINE NEGATIVE mg/dL (<2.0)
[2020-02-29 13:21] LABS: COLOR,URINE YELLOW
[2020-02-29] MEDS ORDERED: METHOCARBAMOL INJ/PF 1000 MG/10 ML SDV IV ONE (13:34)
[2020-02-29] MEDS ORDERED: KETOROLAC TROMETHAMINE INJ/PF 30 MG/1 ML SDV IV ONE (13:34)
[2020-02-29] MEDS ORDERED: HYDROCODONE/ACETAMINOPHEN 5-325 MG TABLET PO ONE (13:38)
--- NOTE | 2020-02-29 14:03 | ER Document Report ---
Entered by JOHNNY BAUM SCRIBE 02/29/20 1334 Acting as scribe for:YENNY BURGOS MD ED General - General Chief Complaint: Flank Pain Stated Complaint: BACK PAIN Time Seen by Provider: 02/29/20 13:14 Primary Care Provider: ARABELLA MEZA FNP-C [Primary Care Provider] - Follow up as needed Mode of Arrival: Ambulatory Information source: Patient Notes: This 65 year old female patient presents today with complaints of left low back pain. Patient states she was drinking her morning coffee, went to get out of her chair, and got "stuck" and she was unable to move. Patient describes this "sticking" as a sharp pain in the back. She reports seeing dark and cloudy urine for the last few days but she denies any dysuria today. There has been no trauma. TRAVEL OUTSIDE OF THE [place] IN LAST 30 DAYS: No - Related Data Allergies/Adverse Reactions: alprazolam [From Xanax] Allergy (Verified 04/18/18 09:21) citalopram hydrobromide [From Celexa] Allergy (Verified 04/18/18 09:21) dextromethorphan HBr [From NyQuil] Allergy (Verified 04/18/18 09:21) doxylamine [From NyQuil] Allergy (Verified 04/18/18 09:21) fluoxetine HCl [From Prozac] Allergy (Verified 04/18/18 09:21) pseudoephedrine HCl [From NyQuil] Allergy (Verified 04/18/18 09:21) trazodone [Trazodone] Allergy (Verified 04/18/18 09:21) antidepressants Adverse Reaction (Uncoded 04/18/18 09:21) Hallucinations Home Medications: Trelegy, Atorvastation, Metoprolol, Omeprazole, Nitrofurantoin, Buproprion Past Medical History - General Information source: Patient - Social History Smoking Status: Unknown if Ever Smoked Cigarette use (# per day): No Chew tobacco use (# tins/day): No Frequency of alcohol use: None Drug Abuse: None Lives with: Family Family History: Reviewed & Not Pertinent - Past Medical History Cardiac Medical History: Reports: Hx Coronary Artery Disease, Hx Heart Attack, Hx Hypercholesterolemia, Hx Hypertension Pulmonary Medical History: Reports: Hx Asthma, Hx Bronchitis, Hx COPD, Hx Pneumonia, Hx Sleep Apnea - Uses home O2 at 2 L/min at night Neurological Medical History: Reports: Hx Migraine Malignancy Medical History: Reports: Hx Cervical Cancer GI Medical History: Reports: Hx Cirrhosis, Hx Gastritis, Hx Hepatitis - Alcohol Musculoskeletal Medical History: Reports Hx Muscle Weakness, Reports Hx Musculoskeletal Trauma Psychiatric Medical History: Reports: Hx Anxiety, Hx Bipolar Disorder, Hx Depression Traumatic Medical History: Reports: Hx Fractures - Right shoulder Infectious Medical History: Reports: Hx Hepatitis - Alcohol Past Surgical History: Reports: Hx Cardiac Catheterization, Hx Section - x3, Hx Coronary Stent, Hx Gynecologic Surgery - cervical dysplasia, Hx Tonsillectomy, Other - Abscess to the leg with wound VAC after surgery - Immunizations Immunizations up to date: Yes Hx Diphtheria, Pertussis, Tetanus Vaccination: Yes Review of Systems - Review of Systems Constitutional: No symptoms reported EENT: No symptoms reported Cardiovascular: No symptoms reported Respiratory: No symptoms reported Gastrointestinal: No symptoms reported Genitourinary: denies: Dysuria Female Genitourinary: No symptoms reported Musculoskeletal: See HPI, Back pain Skin: No symptoms reported Hematologic/Lymphatic: No symptoms reported Neurological/Psychological: No symptoms reported -: Yes All other systems reviewed and negative Physical Exam - Vital signs Vitals: Temp Resp BP Pulse Ox 97.5 F 17 157/100 H 100 02/29/20 12:07 02/29/20 12:07 02/29/20 12:07 02/29/20 12:07 - Notes Notes: Physical Exam: General: Alert, appears well. HEENT: Normocephalic. Atraumatic. PERRL. Extraocular movements intact. Oropharynx clear. Neck: Supple. Non-tender. Respiratory: No respiratory distress. Wheezing and rhonchi bilaterally. Coarse breath sounds consistent with smoking history. Cardiovascular: Regular rate and rhythm. Abdominal: Normal Inspection. Non-tender. No distension. Normal Bowel Sounds. Back: Left lower back tenderness to palpation in the lumbar and sacral spine. No gross abnormalities. Extremities: Moves all four extremities. Upper extremities: Normal inspection. Normal ROM. Lower extremities: Normal inspection. No edema. Normal ROM. Neurological: Normal cognition. AAOx4. Normal speech. Psychological: Normal affect. Normal Mood. Skin: Warm. Dry. Normal color. Course - Re-evaluation Re-evalutation: 02/29/20 16:14 A repeat UA that was obtained by catheter shows a large number of white blood cells, leukocyte esterase positive, without epithelial cells so this 1 was sent to the lab for culture. The patient is feeling better from the medications, she is requesting a prescription for Mer[place]. In the past she was on chronic pain management taking that medication. She received a prescription for Mercer 5 mg number 20 tablets on 02/22/2020 from her primary care provider. She said it was because she has leg muscle pain. No prescribed Robaxin, Ultram, and Cipro to treat the problems that were found today. - Vital Signs Vital signs: Temp Pulse Resp BP Pulse Ox 97.5 F 16 147/61 H 100 02/29/20 12:07 02/29/20 13:01 02/29/20 14:01 02/29/20 14:01 - Laboratory Result Diagrams: 02/29/20 12:11 02/29/20 12:11 Laboratory results interpreted by me: 02/29/20 02/29/20 02/29/20 12:11 12:11 12:25 Hgb 10.7 L Hct 32.8 L RDW 19.1 H [place] % (Auto) 13.6 H Sodium 130.7 L Alkaline Phosphatase 127 H Urine Protein 30 H Ur Leukocyte Esterase LARGE H 02/29/20 15:10 Hgb Hct RDW [place] % (Auto) Sodium Alkaline Phosphatase Urine Protein Ur Leukocyte Esterase LARGE H Discharge - Discharge Clinical Impression: Sacral back pain, Muscle strain Urinary tract infection Qualifiers: Urinary tract infection type: acute cystitis Hematuria presence: without hematuria Qualified Code(s): N30.00 - Acute cystitis without hematuria Condition: Stable Disposition: HOME, SELF-CARE Additional Instructions: Low Back Pain Three out of every four people will have an episode of disabling back pain during their lifetime. Most commonly the pain is due to straining of the muscles and ligaments in the low back. Usual treatment includes: (1) Rest on a firm surface. Avoid lying on your stomach. (2) Ice pack the painful area. After a few days, gentle heat may be used intermittently to relax the area, or ice packs can be continued. (3) Medication may be needed -- muscle relaxers and antiinflammatory medicines are commonly used. (4) As the back improves, exercises are prescribed to strengthen the back and abdominal muscles. Your doctor will advise you on the proper care for your back at each stage in your recovery. You may be better in a few days -- or healing may take several weeks. If new symptoms of a "herniated disc" (radiation of pain, numbness, or tingling down the back of the leg or weakness in the leg) occur, you should be re-examined. Further testing may be necessary. Urinary Tract Infection Your evaluation indicates that you have a urinary tract infection. This is due to germs growing in the bladder. This is a common problem. This infection usually responds quickly to antibiotics. Your antibiotic should be taken exactly as prescribed. Drink plenty of fluids -- three to four quarts a day. Occasionally, a bladder anesthetic will be prescribed to help stop the feeling of urgency until the antibiotic has a chance to clear the infection. This may cause your urine to be dark orange. Certain urine infections require a culture. If the doctor obtained a culture, the results will be back in two days. You should call to see if a change in treatment is needed. A repeat urinalysis after you finish treatment is often recommended. The physician will let you know if further testing is required. Call the doctor if you develop fever, chills, flank pain, inability to urinate, or blood in the urine. Your evaluation today shows that you appear to have a urinary tract infection. The urine was cultured to identify the specific cause of the infection. Your sacral back pain is most likely due to an acute strain when you try to scoot from your seat earlier today. You will be prescribed an antibiotic called ciprofloxacin for the urinary tract infection. You will be prescribed Robaxin/methocarbamol as a muscle relaxer. You will be prescribed tramadol for pain. You should drink plenty of fluids, rest in a comfortable position. Follow-up with your primary care provider if not improving. RETURN TO THE EMERGENCY ROOM IF ANY NEW OR WORSENING SYMPTOMS. Prescriptions: Ciprofloxacin HCl [Cipro 500 mg Tablet] 500 mg PO BID #14 tablet Methocarbamol [Robaxin 750 mg Tablet] 750 mg PO ASDIR PRN #40 tablet PRN Reason: Tramadol HCl [Ultram 50 mg Tablet] 50 mg PO ASDIR PRN #20 tablet PRN Reason: Referrals: ARABELLA MEZA, HOSPITAL MEDICAL ASSISTANT-C [Primary Care Provider] - Follow up as needed I personally performed the services described in the documentation, reviewed and edited the documentation which was dictated to the scribe in my presence, and it accurately records my words and actions.
[2020-02-29 15:56] LABS: APPEARANCE,URINE SLIGHTLY-CLOUDY; BILIRUBIN,URINE NEGATIVE (NEGATIVE); COLOR,URINE YELLOW; GLUCOSE, URINE NEGATIVE (NEGATIVE); KETONES,URINE NEGATIVE (NEGATIVE); LEUKOCYTE ESTERASE,URINE LARGE (NEGATIVE); NITRITE,URINE NEGATIVE (NEGATIVE); PROTEIN,URINE NEGATIVE (NEGATIVE); URINE SPECIFIC GRAVITY 1.013; UROBILINOGEN,URINE NEGATIVE mg/dL (<2.0)
[2020-02-29] MEDS ORDERED: CIPROFLOXACIN HCL 750 MG TABLET PO ONE (16:07)
[2020-02-29] MEDS ORDERED: CEFTRIAXONE 1 GM/D5W RTU 1 GM/50 ML RTUPB IV ONE (16:07)
[2020-02-29 17:15] VITALS: BP 134/73
== END 2020-02-29 17:15 | disposition home or self-care (01) ==
LOC: ER 12:01
DX: T14.8XXA Other injury of unspecified body region, initial encounter (principal); X58.XXXA Exposure to other specified factors, initial encounter; N30.00 Acute cystitis without hematuria; M54.5 Low back pain; M79.18 Myalgia, other site; I25.10 Atherosclerotic heart disease of native coronary artery without angina pectoris; I10 Essential (primary) hypertension; I25.2 Old myocardial infarction; E78.00 Pure hypercholesterolemia, unspecified; J44.9 Chronic obstructive pulmonary disease, unspecified; F32.9 Major depressive disorder, single episode, unspecified; Z79.51 Long term (current) use of inhaled steroids; Z79.899 Other long term (current) drug therapy; Z79.2 Long term (current) use of antibiotics; Z85.41 Personal history of malignant neoplasm of cervix uteri; Z88.8 Allergy status to other drugs, medicaments and biological substances; Z95.5 Presence of coronary angioplasty implant and graft
CPT/HCPCS: 99284; 96375; 96365; 96367; 36415; 87086; 82550; 83690; 83735; 85025; 87088; 80053; 81001; J2800; J1885; A9270 ×2; J0696; 87186; J3490